=== PATIENT | female | born 1945 | race Caucasian/White ===

== ENCOUNTER 2016-11-15 20:49 | Emergency (ER) | payer MEDICARE, OTHER ==
[2016-11-15] MEDS ORDERED: APRESOLINE 20 MG/ML INJ IV ONE (21:19)
[2016-11-15] MEDS ORDERED: Sodium Chloride 0.9% 1000 ML 1,000 ML ONE (21:30)
[2016-11-15] MEDS ORDERED: Sodium Chloride 0.9% 1000 ML 1,000 ML IV SCH (21:30)
[2016-11-15] MEDS ORDERED: APRESOLINE 20 MG/ML INJ ONE (21:30)
[2016-11-15 21:31] LABS: Mean Cell Volume 94.5 fl (78-100); Mean Corpuscular Hemoglobin 30.9 pg (26-32); Mean Platelet Volume 10.4 fl (6-9.5); Platelet Count 341 K/mm3 (150-450); Red Blood Count 4.89 M/mm3 (4.1-5.4); Red Cell Distribution Width 14.5 % (11.5-14.0); White Blood Count 12.3 K/mm3 (4.0-10.5)
--- NOTE | 2016-11-15 21:31 | ERPHSYRPT ---
- History of Present Illness Time Seen by Provider: 11/15/16 21:14 Source: patient Exam Limitations: clinical condition Patient Subjective Stated Complaint: states that she has had a sinus infection with headache - taking z-pack et steroids per Dr. Mariee but has noticed an increase in blood pressure - states that she has white spots in her vision that she has had before with a sinus headache Triage Nursing Assessment: ambulatory to treatment area - steady gait - moves all extremities with equal strength. alert/oriented - anxious affect. skin pwd - no rash/injury. resps easy - non-labored Physician History: PATIENT WITH HISTORY OF HYPERTENSION, RECENTLY TREATED FOR SINUSITIS WITH STEROIDS AND ANTIBIOTIC ZITHROMAX, WAS FOUND TO HAVE ELEVATED BLOOD PRESSURE TODAY, HAS SLIGHT HEADACHE. DENIES BLURRED VISION, SLURRED SPEECH, CHEST PAIN OR DIAPHORESIS OR DYSPNEA. Timing/Duration: today Activities at Onset: none Quality: aching Chest Pain Radiation: no radiation Severity of Pain-Max: mild Modifying Factors: Improves With: nothing Nitro Today/Relief: no nitro taken today Aspirin Treatment Today: no aspirin today Associated Symptoms: denies symptoms Prior Chest Pain/Cardiac Workup: no prior chest pain Allergies/Adverse Reactions: codeine Allergy (Verified 11/15/16 21:04) moxifloxacin HCl [From Avelox] Allergy (Verified 11/15/16 21:04) Penicillins Allergy (Verified 11/15/16 21:04) Sulfa (Sulfonamide Antibiotics) Allergy (Verified 11/15/16 21:04) Home Medications: Alprazolam 1 mg [Xanax 1 mg] 1 mg PO HS 09/27/15 [History] Benazepril HCl [Lotensin] 20 mg PO DAILY 09/27/15 [History] Fluticasone/Vilanterol [Breo Ellipta 100-25 Mcg INH] 1 each IH DAILY 11/15/16 [ History] Hx Tetanus, Diphtheria Vaccination/Date Given: Yes Hx Influenza Vaccination/Date Given: No Hx Pneumococcal Vaccination/Date Given: No Immunizations Up to Date: Yes - Review of Systems Constitutional: No Fever, No Chills Eyes: No Symptoms Ears, Nose, & Throat: No Symptoms Respiratory: No Symptoms, No Cough, No Dyspnea Cardiac: No Symptoms, No Chest Pain, No Edema, No Syncope Abdominal/Gastrointestinal: No Symptoms, No Abdominal Pain, No Nausea, No Vomiting, No Diarrhea Genitourinary Symptoms: No Symptoms, No Dysuria Musculoskeletal: No Symptoms, No Back Pain, No Neck Pain Skin: No Symptoms, No Rash Neurological: Headache, No Dizziness, No Focal Weakness, No Sensory Changes Psychological: No Symptoms Endocrine: No Symptoms All Other Systems: Reviewed and Negative - Past Medical History Pertinent Past Medical History: Yes Cardiac History: Hypertension Respiratory History: COPD - Past Surgical History Past Surgical History: Yes Female Surgical History: Hysterectomy - Social History Smoking Status: Former smoker Exposure to second hand smoke: No Drug Use: none Patient Lives Alone: No - Female History Hx Last Menstrual Period: n/a - Nursing Vital Signs Temperature: 98.5 F Temperature Source: Oral Pulse Rate: 68 Respiratory Rate: 20 Pain Intensity: 6 - Physical Exam General Appearance: no apparent distress, alert Eye Exam: PERRL/EOMI, eyes nml inspection Ears, Nose, Throat Exam: normal ENT inspection, moist mucous membranes Neck Exam: normal inspection, non-tender, supple Respiratory Exam: normal breath sounds, lungs clear, No respiratory distress Cardiovascular Exam: regular rate/rhythm, normal heart sounds, No edema Gastrointestinal/Abdomen Exam: soft, No tenderness, No mass Back Exam: normal inspection, No CVA tenderness, No vertebral tenderness Extremity Exam: normal inspection, normal range of motion Neurologic Exam: alert, oriented x 3, cooperative, normal mood/affect, nml cerebellar function, sensation nml, No motor deficits Skin Exam: normal color, warm, dry Lymphatic Exam: No adenopathy SpO2 Interpretation: normal SpO2: 93 Oxygen Delivery: Room Air - Course EKG Interpreted by Me: RATE, Sinus Rhythm, NORMAL AXIS Ordered Tests: Active Orders 24 hr Category Date Time Status Shuttler STAT Care 11/15/16 21:18 Active EKG-ER Only STAT Care 11/15/16 21:18 Active IV Insertion STAT Care 11/15/16 21:36 Active CBC W DIFF Stat Lab 11/15/16 21:25 Completed Manual Differential NC Stat Lab 11/15/16 21:25 Completed Medication Summary Generic Name Dose Route Start Last Admin Trade Name Freq PRN Reason Stop Dose Admin Sodium Chloride 1,000 mls @ 50 mls/hr 11/15/16 21:30 11/15/16 21:42 Sodium Chloride 0.9% 1000 Ml IV 12/15/16 21:29 50 mls/hr .Q20H MATTHEW Administration Discontinued Medications Generic Name Dose Route Start Last Admin Trade Name Stepan PRN Reason Stop Dose Admin Clonidine 0.1 mg 11/15/16 22:11 11/15/16 22:18 Catapres 0.1 Mg PO 11/15/16 22:12 0.1 mg STAT ONE Administration Clonidine Confirm 11/15/16 22:17 Catapres 0.1 Mg Administered 11/15/16 22:18 Dose 0.1 mg .ROUTE .STK-MED ONE Hydralazine HCl 10 mg 11/15/16 21:19 11/15/16 21:42 Apresoline 20 Mg/Ml Inj IV 11/15/16 21:20 10 mg STAT ONE Administration Hydralazine HCl Confirm 11/15/16 21:30 Apresoline 20 Mg/Ml Inj Administered 11/15/16 21:31 Dose 20 mg .ROUTE .STK-MED ONE Lab/Rad Data: Laboratory Result Diagrams 11/15/16 21:25 Laboratory Results 11/15/16 Range/Units 21:25 WBC 12.3 H (4.0-10.5) K/mm3 RBC 4.89 (4.1-5.4) M/mm3 Hgb 15.1 (12.0-16.0) gm/dl Hct 46.2 (35-47) % MCV 94.5 (78-100) fl MCH 30.9 (26-32) pg MCHC 32.7 (32-36) g/dl RDW 14.5 H (11.5-14.0) % Plt Count 341 (150-450) K/mm3 MPV 10.4 H (6-9.5) fl Segmented Neutrophils 71 H (36.0-66.0) % Lymphocytes (Manual) 18 L (24-44) % Monocytes (Manual) 9 (0.0-12.0) % Differential Comment NORMAL Atypical Lymphocytes 2 % Platelet Estimate NORMAL (NORMAL) - Progress Progress: improved Progress Note: 11/15/16 21:23 PATIENT GIVEN IV NORMAL SALINE 50ML/HR, HYDRALAZINE 10MG IV, FOLLOWED BY CATAPRES 0.1MG ORALLY, BP IMPROVED TO BP 138/64 11/15/16 23:13 Counseled pt/family regarding: lab results, diagnosis, need for follow-up - Departure Time of Disposition: 23:15 Departure Disposition: Home Clinical Impression: HYPERTENSION Condition: Stable Critical Care Time: No Additional Instructions: CONSULT YOUR FAMILY PHYSICIAN FOR EVALUATION AND ADJUSTMENT OF YOUR BLOOD PRESSURE MEDICATIONS TOMORROW. RETURN TO EMERGENCY FOR ELEVATION OF YOUR BLOOD PRESSURE.
[2016-11-15] MEDS ORDERED: Catapres 0.1 MG PO ONE (22:11)
[2016-11-15] MEDS ORDERED: Catapres 0.1 MG ONE (22:17)
[2016-11-15 22:20] LABS: ATYPICAL LYMPHS 2 %; Total Cells Counted 100
[2016-11-15 22:22] LABS: Platelet Estimate NORMAL (NORMAL)
[2016-11-15 23:10] VITALS: BP 138/63
[2016-11-15 23:17] VITALS: PULSE 68; O2SAT 93
== END 2016-11-15 23:36 | disposition home or self-care (01) ==
LOC: ED 20:49
DX: I10 Essential (primary) hypertension (principal); Z79.899 Other long term (current) drug therapy; J44.9 Chronic obstructive pulmonary disease, unspecified
CPT/HCPCS: 36000; 36415; 85025; 93005; 93041; 96360; 96361; 96374; 99284; J0360; A9270-GY

== ENCOUNTER 2016-11-16 04:42 | Observation (INO) | payer MEDICARE, OTHER ==
[2016-11-16] MEDS ORDERED: SUBLIMAZE 100 MCG/2 ML IV ONE (04:49)
[2016-11-16] MEDS ORDERED: Zofran 4 MG/2 ML VIAL IV ONE (04:49)
[2016-11-16] MEDS ORDERED: SUBLIMAZE 100 MCG/2 ML ONE (04:58)
[2016-11-16] MEDS ORDERED: Zofran 4 MG/2 ML VIAL ONE (04:58)
--- NOTE | 2016-11-16 04:59 | ERPHSYRPT ---
- History of Present Illness Time Seen by Provider: 11/16/16 04:48 Source: patient Exam Limitations: clinical condition Patient Subjective Stated Complaint: reports that she has an excruciating headache that awoke her from sleep at 0300 - reports that she does now have some nausea Triage Nursing Assessment: ambulatory to treatment area with steady gait - moves all extremities with equal strength. alert/oriented - anxious/grimmacing affect. skin pwd - no rash/injury. resps easy - non-labored Physician History: PATIENT WITH HISTORY OF HYPERTENSION, RETURNS TO THE EMERGENCY ROOM WITH A FRONTAL HEADACHE AND ELEVATED BLOOD PRESSURE. DENIES BLURRED VISION, SLURRED SPEECH, NUMBNESS, TINGLING OR WEAKNESS. EVALUATED IN THE EMERGENCY ROOM LAST NIGHT FOR HIGH BLOOD PRESSURE. RECENTLY TREATED FOR SINUSITIS WITH PREDNISONE AND ANTIBIOTIC ZITHROMAX. Timing/Duration: yesterday Quality: throbbing Head Pain Location: frontal Severity of Pain-Max: moderate Severity of Pain-Current: moderate Recent Head Trauma: no recent headache/trauma Modifying Factors: Improves With: exposure to light Associated Symptoms: sensitive to light Previous symptoms: same symptoms as today Allergies/Adverse Reactions: codeine Allergy (Verified 11/16/16 04:49) moxifloxacin HCl [From Avelox] Allergy (Verified 11/16/16 04:49) Penicillins Allergy (Verified 11/16/16 04:49) Sulfa (Sulfonamide Antibiotics) Allergy (Verified 11/16/16 04:49) Home Medications: Alprazolam 1 mg [Xanax 1 mg] 1 mg PO HS 09/27/15 [History] Benazepril HCl [Lotensin] 20 mg PO DAILY 09/27/15 [History] Fluticasone/Vilanterol [Breo Ellipta 100-25 Mcg INH] 1 each IH DAILY 11/15/16 [ History] Hx Tetanus, Diphtheria Vaccination/Date Given: Yes Hx Influenza Vaccination/Date Given: No Hx Pneumococcal Vaccination/Date Given: No Immunizations Up to Date: Yes - Review of Systems Constitutional: No Fever, No Chills Eyes: No Symptoms Ears, Nose, & Throat: No Symptoms Respiratory: No Symptoms, No Cough, No Dyspnea Cardiac: No Symptoms, No Chest Pain, No Edema, No Syncope Abdominal/Gastrointestinal: No Symptoms, No Abdominal Pain, No Nausea, No Vomiting, No Diarrhea Genitourinary Symptoms: No Symptoms, No Dysuria Musculoskeletal: No Symptoms, No Back Pain, No Neck Pain Skin: No Symptoms, No Rash Neurological: Headache, No Dizziness, No Focal Weakness, No Sensory Changes Psychological: No Symptoms Endocrine: No Symptoms All Other Systems: Reviewed and Negative - Past Medical History Pertinent Past Medical History: Yes Cardiac History: Hypertension Respiratory History: COPD - Past Surgical History Past Surgical History: Yes Female Surgical History: Hysterectomy - Social History Smoking Status: Former smoker Exposure to second hand smoke: No Drug Use: none Patient Lives Alone: No - Female History Hx Last Menstrual Period: n/a - Nursing Vital Signs Nursing Vital Signs: Initial Vital Signs Temperature 98.4 F Temperature Source Oral Pulse Rate 60 Respiratory Rate 12 Blood Pressure [] 168/73 Pain Intensity 4 - Physical Exam General Appearance: mild distress Eye Exam: PERRL/EOMI, other (NO PERCUSSION TENDERNESS OVER SINUSES) Neck Exam: normal inspection, supple, full range of motion, No meningismus Respiratory Exam: normal breath sounds, lungs clear Cardiovascular Exam: regular rate/rhythm, normal heart sounds Extremity Exam: normal inspection, normal range of motion Mental Status Exam: alert, 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 Exam: normal hearing, normal speech Coordination/Gait Exam: normal finger to nose, normal gait Motor/Sensory Exam: no motor deficit, no sensory deficit DTR Exam: bicep (R): 2+, bicep (L): 2+, tricep (R): 2+, tricep (L): 2+, knee (R) : 2+, knee (L): 2+, ankle (R): 2+, ankle (L): 2+ Skin Exam: normal color, warm SpO2 Interpretation: normal SpO2: 96 Oxygen Delivery: Room Air - CT Exams Head CT Interpretation: Tele-radiologist Report (atrophy and chronic white matter ischemic changes, no evidence of acute hemorrhage, mass or stroke) Ordered Tests: Active Orders 24 hr Category Date Time Status Up With Assistance ROUTINE Activity 11/16/16 05:46 Active Admission/Status Order ROUTINE Care 11/16/16 05:46 Ordered Call Admit Doctor for Orders ON ADMISSION Care 11/16/16 05:47 Ordered Logistics Operations Director STAT Care 11/16/16 05:23 Active Code Status Order ROUTINE Care 11/16/16 05:46 Ordered IV Care Q6H Care 11/16/16 05:46 Active IV Insertion STAT Care 11/16/16 04:49 Active Oxygen-ED Only NASAL CANNULA 2 lpm Care 11/16/16 04:49 Active Telemetry ROUTINE Care 11/16/16 05:46 Ordered Vital Signs Q4H Care 11/16/16 05:46 Active Low Sodium Diet 11/16/16 Breakfast Active HEAD WITHOUT CONTRAST [CT] Stat Exams 11/16/16 04:54 Taken BMP Stat Lab 11/16/16 04:50 Received Oxygen NASAL CANNULA 2 lpm RT 11/16/16 05:46 Ordered Pulse Oximetry CONTINUOUS RT 11/16/16 05:48 Ordered Transfer Order Routine Transfer 11/16/16 05:45 Ordered Medication Summary Generic Name Dose Route Start Last Admin Trade Name Freq PRN Reason Stop Dose Admin Sodium Chloride 1,000 mls @ 50 mls/hr 11/16/16 05:00 11/16/16 05:05 Sodium Chloride 0.9% 1000 Ml IV 12/16/16 04:59 50 mls/hr .Q20H MATTHEW Administration Discontinued Medications Generic Name Dose Route Start Last Admin Trade Name Freq PRN Reason Stop Dose Admin Fentanyl Citrate 50 mcg 11/16/16 04:49 11/16/16 05:05 Sublimaze 100 Mcg/2 Ml IV 11/16/16 04:50 50 mcg STAT ONE Administration Fentanyl Citrate Confirm 11/16/16 04:58 Sublimaze 100 Mcg/2 Ml Administered 11/16/16 04:59 Dose 100 mcg .ROUTE .STK-MED ONE Ondansetron HCl 4 mg 11/16/16 04:49 11/16/16 05:05 Zofran 4 Mg/2 Ml Vial IV 11/16/16 04:50 4 mg STAT ONE Administration Ondansetron HCl Confirm 11/16/16 04:58 Zofran 4 Mg/2 Ml Vial Administered 11/16/16 04:59 Dose 4 mg .ROUTE .STK-MED ONE - Progress Progress: improved Progress Note: 11/16/16 05:06 PATIENT GIVEN IV FLUIDS NORMAL SALINE 50ML/HR, ZOFRAN 4MG, FENTANY 50MCG IV Will see patient in: hospital (observation) (DISCUSSED WITH DR BRITO AT 0540 FOR ADMISSION) - Departure Time of Disposition: 05:55 Departure Disposition: Observation Clinical Impression: HYPERTENSION, ACUTE CEPHALGIA Condition: Stable Critical Care Time: No Referrals: COREY BRITO [Primary Care Provider] - Instructions: Headache
[2016-11-16] MEDS ORDERED: Sodium Chloride 0.9% 1000 ML 1,000 ML IV SCH (05:00)
[2016-11-16] MEDS ORDERED: Zofran 4 MG/2 ML VIAL IV PRN (05:46)
[2016-11-16] MEDS ORDERED: DUONEB 0.5-3 MG/3 ml Neb IH PRN (05:46)
[2016-11-16] MEDS ORDERED: TYLENOL 325 MG PO PRN (05:46)
[2016-11-16] MEDS ORDERED: SUBLIMAZE 100 MCG/2 ML IV PRN (05:48)
[2016-11-16] MEDS ORDERED: Advair Hfa 115/21 Common canister IH SCH (07:00)
[2016-11-16] MEDS ORDERED: CAFFEINE PO PRN (08:53)
[2016-11-16] MEDS ORDERED: ASPIRIN PO PRN (08:53)
[2016-11-16] MEDS ORDERED: ACETAMINOPHEN PO PRN (08:53)
[2016-11-16] MEDS ORDERED: [UNRECOGNIZED DRUG - OTHER] PO PRN (08:53)
--- NOTE | 2016-11-16 09:07 | HP ---
CHIEF COMPLAINT: Headache and hypertension. HISTORY OF PRESENT ILLNESS: The patient is a 71 year-old white female who reported that she was not feeling good last evening. She began feeling a "boom, boom, boom" in her head as she described it particularly on the left side. The patient became concerned and checked her blood pressure and found it to be 180/90. She summoned EMS and was brought to the emergency room where she was evaluated and eventually sent back home again. The patient reports after she returned home she developed excruciating headache and represented herself to the emergency room and subsequently admitted for further evaluation and treatment. I note that the patient did have a history of migraine headaches and it has been 20 years since her headaches. She reported at that time they were somewhat different however to the point that she became sick and vomited bile. The patient's recent history is otherwise significant for bronchitis that had been treated with antibiotics and prednisone. The patient reports she took her last prednisone pill yesterday. PAST MEDICAL HISTORY: Otherwise significant for anxiety and hypertension. PAST SURGICAL HISTORY: Significant for hysterectomy MEDICATIONS: She does take Alprazolam 1 mg at night time for sleep mostly. She takes Benazepril 20 mg a day for hypertension, Breo Ellipta for chronic obstructive pulmonary disease. ALLERGIES: PENICILLIN, SULFA, CODEINE. PHYSICAL EXAMINATION: Revealed a moderately obese, white female currently in no obvious distress. Her vital signs showed a temperature of 98.4F oral, pulse 60, respiratory rate 12, blood pressure 168/73 in the emergency room. HEENT: Normocephalic, atraumatic. Pupils equal round reactive to light. Extraocular movements intact. Oropharynx is somewhat dry. NECK: Supple without lymphadenopathy, thyromegaly or JVD. CHEST: Clear to auscultation with good air movement bilaterally. HEART: Regular rate and rhythm without murmurs, rubs or gallops heard. ABDOMEN: Soft, nontender, nondistended without hepatosplenomegaly or masses. EXTREMITIES: Without clubbing, cyanosis or edema. NEUROLOGIC: The patient is alert and oriented x3. No focal deficits were noted. LAB DATA AND TESTS: Revealed CT scan showing atrophy with chronic white matter ischemic changes, no evidence of acute, mass or stroke was seen. The patient's EKG tracing showed sinus rhythm and no acute ST-T wave changes were noted. ASSESSMENT: A patient with accelerated hypertension now with cephalgia possibly due to her history of previous migraine headaches or due to hypertensive episode. The patient has been admitted for observation and is already much better this morning. We will continue to monitor her through the day. If she does well we may potentially send her home later this evening.
--- NOTE | 2016-11-16 09:11 | XRAY ---
Indication: Excruciating headache, nausea, and photophobia. History of hypertension. Multiple contiguous axial images obtained through the head without contrast. Comparison: None Normal appearing brain parenchyma, ventricles, and bony calvarium for patient's age. Mild mucosal thickening of both ethmoid and partially visualized both maxillary sinuses. Mastoid air cells are clear. Impression: No acute intracranial abnormalities. Incidental paranasal sinus disease. Comment: Preliminary interpretation was made by [facility]. No critical discrepancy. CT DI 68.98
[2016-11-16] MEDS ORDERED: MEDICATION INTERVENTION MC PRN (09:22)
[2016-11-16] MEDS ORDERED: BENAZEPRIL HCL 10 MG PO SCH (10:00)
[2016-11-16] MEDS ORDERED: Lotensin 10 MG PO SCH (10:00)
[2016-11-16] MEDS ORDERED: NON-FORMULARY ITEM (Fluticasone/Vilanterol [Breo Ellipta 100-25 Mcg Inh] 1 EACH) IH SCH (10:00)
[2016-11-16 14:58] VITALS: PULSE 69
[2016-11-16 16:24] VITALS: BP 115/53; O2SAT 98
[2016-11-16] MEDS ORDERED: XANAX 1 MG PO SCH (22:00)
[2016-11-16] MEDS ORDERED: xanAX 0.5 MG PO SCH (22:00)
[2016-11-17] MEDS ORDERED: Lotensin 10 MG PO SCH (10:00)
== END 2016-11-16 15:40 | disposition home or self-care (01) ==
LOC: ED 04:42 → MED SURG 05:57
PROVIDERS: ADMIT Family Medicine; ATTEND Family Medicine
DX: I10 Essential (primary) hypertension (principal); R51 Headache; J44.9 Chronic obstructive pulmonary disease, unspecified; F41.9 Anxiety disorder, unspecified; Z79.899 Other long term (current) drug therapy
CPT/HCPCS: 36000; 36415; 70450; 80048; 93041; 93268; 94640; 94760; 96360; 96374; 96375; 99285; G0378; J2405; J3010; A9270-GY

== ENCOUNTER 2018-03-07 05:47 | Day surgery (SDC) | payer MEDICARE, OTHER ==
[2018-03-07] MEDS ORDERED: DIPRIVAN 200 MG/20 ML IV ONE (05:48)
[2018-03-07] MEDS ORDERED: Ketamine HCl 50 MG/ML IV ONE (05:48)
[2018-03-07] MEDS ORDERED: Lactated Ringers 1,000 ML IV SCH ×2 (06:30)
[2018-03-07 09:21] VITALS: O2SAT 94
--- NOTE | 2018-03-07 10:10 | OP ---
SURGERY DATE/TIME: 03/07/2018 0759 PREOPERATIVE DIAGNOSIS: Screening exam. POSTOPERATIVE DIAGNOSIS: Sigmoid diverticulosis otherwise normal colon. PROCEDURE: Colonoscopy. SURGEON: Dr. Mariee. ANESTHESIA: MAC. Medications given by anesthesia department. HISTORY: The patient is a 72 year-old white female presenting now for her first screening colonoscopy. She was appraised of the risks of the procedure including the risk of perforation, phlebitis, untoward reaction to medication, bleeding and missed lesions. The patient verbalized her understanding and desired to have the procedure performed. DESCRIPTION OF PROCEDURE: The patient was given the medications by the anesthesia department. She had continuous pulse oximetry, ECG monitoring, intermittent blood pressure monitoring and tidal CO2 monitoring during the examination. She was placed in the left lateral decubitus position. A digital rectal examination was performed and revealed normal anal sphincter tone and no masses. The flexible Olympus pediatric colonoscope was used to intubate the rectum. A view of the colon was developed sequentially to the cecum. Upon insertion and withdrawal, including a retroflex view in the rectum, no mucosal lesions were encountered other than sigmoid diverticula which was moderate to severe in nature. The scope was removed from the patient who tolerated the procedure well and was sent back to OP recovery in good condition. The prep was noted to be fair.
[2018-03-07 10:20] VITALS: BP 119/59; PULSE 77
== END 2018-03-07 09:55 | disposition home or self-care (01) ==
LOC: SDC 05:47
PROVIDERS: ATTEND Family Medicine
DX: Z12.11 Encounter for screening for malignant neoplasm of colon (principal); K57.90 Diverticulosis of intestine, part unspecified, without perforation or abscess without bleeding
CPT/HCPCS: 94250; G0121; 99100; J2704

== ENCOUNTER 2022-07-22 09:21 | Emergency (ER) | payer MEDICARE ==
[2022-07-22] MEDS ORDERED: Sodium Chloride 0.9% 1000 ML 1,000 ML IV STA (09:45)
[2022-07-22] MEDS ORDERED: Sodium Chloride 0.9% 1000 ML 1,000 ML ONE (10:00)
[2022-07-22 10:01] LABS: Absolute Neutrophil Ct (ANC) 3.07 x10^3/uL (1.4-6.9); Basophil (Absolute #) 0.04 x10^3/uL (0-0.4); Eosinophil % 0.6 % (0.00-5.0); Eosinophil (Absolute #) 0.03 x10^3/uL (0-0.5); Hematocrit 47.3 % (35-47); Hemoglobin 15.6 g/dL (12.0-16.0); Lymphocyte (Absolute #) 0.96 x10^3/uL (1.0-4.6); Lymphocytes % 19.8 % (24.0-44.0); Mean Cell Volume 93.5 fL (78-100); Mean Corpuscular Hemoglobin 30.8 pg (26-32); Mean Platelet Volume 10.5 fL (7.5-11.0); Monocyte (Absolute #) 0.73 x10^3/uL (0.0-1.3); Monocytes % 15.1 % (0.0-12.0); Neutrophil % 63.5 % (36.0-66.0); Platelet Count 205 x10^3/uL (150-450); Red Blood Count 5.06 x10^6/uL (4.1-5.4); Red Cell Distribution Width 14.2 % (11.5-14.0); White Blood Count 4.8 x10^3/uL (4.0-10.5)
[2022-07-22 10:21] LABS: ALBUMIN 4.2 g/dL (3.5-5.0); BILIRUBIN,TOTAL 0.4 mg/dL (0.2-1.3); Calcium 8.1 mg/dL (8.4-10.2); Creatinine 1 1.03 mg/dL (0.52-1.04); EST GLOMERULAR FILTRATION RATE 55.2 ML/MIN; Potassium 3.9 mmol/L (3.5-5.1); Total Protein 7.2 g/dL (6.3-8.2)
--- NOTE | 2022-07-22 10:35 | XRAY ---
Indication: Nausea, vomiting, weakness, and diarrhea. Multiple contiguous axial images obtained through the abdomen and pelvis without contrast. Comparison: None Lung bases demonstrates peripheral fibrosis/scarring. No infiltrate or effusion. Heart not enlarged. Small hiatal hernia. Noncontrasted stomach and bowel loops appear nonobstructed. Scattered sigmoid and lesser degree descending diverticulosis without diverticulitis. Appendectomy, hysterectomy, and cholecystectomy reported. No free fluid/air. Liver demonstrates patchy hypoattenuations, steatosis versus malignancy. Lack of IV contrast precludes further characterization. Left kidney demonstrates 1.7 cm cortical cyst and nonobstructing punctate calculus. Remaining gallbladder, pancreas, spleen, adrenal glands, kidneys, ureters, and bladder are unremarkable for noncontrast exam. Mild scattered aortoiliac calcifications without AAA. Osseous structures intact with minimal/mild degenerative changes throughout the spine, moderate dextrorotoscoliosis centered at L2, and moderate degenerative changes both hips. No ventral or inguinal hernias. Impression: 1. Patchy hepatic hypoattenuations either steatosis versus malignancy. Contrast exam may yield further information. 2. Chronic findings including pulmonary fibrosis/scarring, small hiatal hernia, colonic diverticulosis, left renal cyst, nonobstructing left renal punctate calculus, arteriosclerotic disease, and chronic bony findings.
[2022-07-22 10:43] LABS: INFLUENZA B NEGATIVE (NEGATIVE); RESPIRATORY SYNCTIAL VIRUS NEGATIVE (Negative); SARS-CoV-2 Xpert Express NEGATIVE (NEGATIVE)
[2022-07-22 10:50] LABS: INFLUENZA A POSITIVE (NEGATIVE)
[2022-07-22 11:46] VITALS: BP 105/72; PULSE 96
[2022-07-22 11:48] VITALS: O2SAT 92
--- NOTE | 2022-07-22 11:48 | ERPHSYRPT ---
- History of Present Illness Time Seen by Provider: 07/22/22 09:45 Historian: patient Exam Limitations: no limitations Patient Subjective Stated Complaint: Pt had vomiting beginning 4 days ago and diarrhea began yesterday and the vomiting stopped today but continues to have diarrhea, pt has body fatigue Triage Nursing Assessment: Pt brought to the ER by her grand daughter, hypertensive, denies pain although she can't get comfortable in bed, has had 2 bowel movements today, states that she was up multiple times in the night, denies pain to the abdomen with palpatation, denies having a fever at any time, denies any other issues Physician History: Patient is a 76-year-old white female presents with a complaint of nausea and vomiting for several days which seem to stop yesterday. She did however then start frequent diarrhea stools. She denies any significant pain she has been very fatigued she has had no fever chills or sweats her only previous abdominal surgery was a hysterectomy Timing/Duration: week(s) (1) Activities at Onset: none Modifying Factors: Improves With: vomiting Associated Symptoms: diarrhea, loss of appetite, nausea, vomiting, weakness Allergies/Adverse Reactions: codeine Allergy (Verified 07/22/22 09:46) moxifloxacin HCl [From Avelox] Allergy (Verified 07/22/22 09:46) Penicillins Allergy (Verified 07/22/22 09:46) Sulfa (Sulfonamide Antibiotics) Allergy (Verified 07/22/22 09:46) Home Medications: Fluticasone/Vilanterol [Breo Ellipta 100-25 Mcg INH] 1 each IH UD 11/16/16 [History] Amlodipine Besylate 5 mg [Norvasc 5 mg] 5 mg PO DAILY 07/22/22 [History] Ibandronate Sodium [Boniva] 150 mg PO UD 07/22/22 [History] Lisinopril 5 mg [Zestril 5 MG] 5 mg PO DAILY 07/22/22 [History] Hx Tetanus, Diphtheria Vaccination/Date Given: Yes Hx Influenza Vaccination/Date Given: Yes (2021) Hx Pneumococcal Vaccination/Date Given: Yes Travel Risk - International Travel Have you traveled outside of the country in past 3 weeks: No - Coronavirus Screening Are you exhibiting any of the following symptoms?: Yes Symptoms: Vomiting/Diarrhea Close contact with a COVID-19 positive Pt in past 14-21 Days: No - Vaccine Status Have you recieved a Covid-19 vaccination: Yes Gate Tender: Moderna - Vaccination Dates Date of 2cond Vaccination (if applicable): 2020 - Review of Systems Constitutional: No Fever, No Chills Eyes: No Symptoms Ears, Nose, & Throat: No Symptoms Respiratory: No Cough, No Dyspnea Cardiac: No Chest Pain, No Edema, No Syncope Abdominal/Gastrointestinal: Nausea, Vomiting, Diarrhea, No Abdominal Pain Genitourinary Symptoms: No Dysuria Musculoskeletal: No Back Pain, No Neck Pain Skin: No Rash Neurological: No Dizziness, No Focal Weakness, No Sensory Changes Psychological: No Symptoms Endocrine: No Symptoms All Other Systems: Reviewed and Negative - Past Medical History Pertinent Past Medical History: Yes Neurological History: No Pertinent History ENT History: No Pertinent History Cardiac History: Hypertension Respiratory History: COPD Endocrine Medical History: No Pertinent History Musculoskeletal History: No Pertinent History GI Medical History: No Pertinent History History: No Pertinent History Psycho-Social History: No Pertinent History Female Reproductive Disorders: No Pertinent History - Past Surgical History Past Surgical History: Yes Neuro Surgical History: No Pertinent History Cardiac: No Pertinent History Respiratory: No Pertinent History Gastrointestinal: No Pertinent History Genitourinary: No Pertinent History Musculoskeletal: Other Female Surgical History: Hysterectomy Other Surgical History: knee scope - Social History Smoking Status: Former smoker Exposure to second hand smoke: No Drug Use: none Patient Lives Alone: Yes - Nursing Vital Signs Nursing Vital Signs: Initial Vital Signs Temperature 97.7 F 07/22/22 09:31 Pulse Rate 74 07/22/22 09:31 Blood Pressure 144/84 07/22/22 09:31 O2 Sat by Pulse Oximetry 92 L 07/22/22 09:31 Pain Scale Pain Intensity 0 - Physical Exam General Appearance: mild distress, alert Eye Exam: PERRL/EOMI, eyes nml inspection Ears, Nose, Throat Exam: normal ENT inspection, pharynx normal, moist mucous membranes Neck Exam: normal inspection, non-tender, supple, full range of motion Respiratory Exam: normal breath sounds, lungs clear, No respiratory distress Cardiovascular Exam: regular rate/rhythm, normal heart sounds Gastrointestinal/Abdomen Exam: soft, No tenderness, No mass Back Exam: normal inspection, normal range of motion, No CVA tenderness, No vertebral tenderness Extremity Exam: normal inspection, normal range of motion, pelvis stable Neurologic Exam: alert, oriented x 3, cooperative, normal mood/affect, nml cerebellar function, sensation nml, No motor deficits Skin Exam: normal color, warm, dry SpO2: 92 - Course Nursing assessment & vital signs reviewed: Yes - CT Exams Abdomen/Pelvis CT Interpretation: Other (Findings discussed with patient.Hypoattenuation areas in the liver which could be steatosis or perhaps malignancy recommended CT contrast.) Ordered Tests: Active Orders 24 hr Category Date Time Status IV Insertion STAT Care 07/22/22 09:45 Active ABDOMEN AND PELVIS W/0 CONTRAS [CT] Stat Exams 07/22/22 09:46 Completed AMYLASE Stat Lab 07/22/22 09:56 Completed CBC W DIFF Stat Lab 07/22/22 09:56 Completed CMP Stat Lab 07/22/22 09:56 Completed FECAL OCCULT BLOOD - SCREENING Stat Lab 07/22/22 10:39 Ordered LIPASE Stat Lab 07/22/22 09:56 Completed Lactic Acid Stat Lab 07/22/22 10:09 Completed UA W/RFX CULTURE Stat Lab 07/22/22 Ordered Medication Summary Discontinued Medications Generic Name Dose Route Start Last Admin Trade Name Daniq PRN Reason Stop Dose Admin Sodium Chloride 1,000 mls @ 999 mls/hr 07/22/22 09:45 07/22/22 11:09 Sodium Chloride 0.9% 1000 Ml IV 07/22/22 10:45 Infused .Q1H1M STA Infusion Sodium Chloride Confirm 07/22/22 10:00 Sodium Chloride 0.9% 1000 Ml Administered 07/22/22 10:01 Dose 1,000 mls @ ud .ROUTE .K-MED ONE Lab/Rad Data: Laboratory Result Diagrams 07/22/22 09:56 07/22/22 09:56 Laboratory Results 07/22/22 07/22/22 07/22/22 Range/Units 10:09 09:56 09:56 WBC 4.8 (4.0-10.5) x10^3/uL RBC 5.06 (4.1-5.4) x10^6/uL Hgb 15.6 (12.0-16.0) g/dL Hct 47.3 H (35-47) % MCV 93.5 (78-100) fL MCH 30.8 (26-32) pg MCHC 33.0 (32-36) g/dL RDW 14.2 H (11.5-14.0) % Plt Count 205 (150-450) x10^3/uL MPV 10.5 (7.5-11.0) fL Gran % 63.5 (36.0-66.0) % Immature Gran % (Auto) 0.2 (0.00-0.4) % Nucleat RBC Rel Count 0.0 (0.00-0.1) % Eos # (Auto) 0.03 (0-0.5) x10^3/uL Immature Gran # (Auto) 0.01 (0.00-0.03) x10^3u/L Absolute Lymphs (auto) 0.96 L (1.0-4.6) x10^3/uL Absolute Monos (auto) 0.73 (0.0-1.3) x10^3/uL Absolute Nucleated RBC 0.00 (0.00-0.01) x10^3u/L Lymphocytes % 19.8 L (24.0-44.0) % Monocytes % 15.1 H (0.0-12.0) % Eosinophils % 0.6 (0.00-5.0) % Basophils % 0.8 (0.0-0.4) % Absolute Granulocytes 3.07 (1.4-6.9) x10^3/uL Basophils # 0.04 (0-0.4) x10^3/uL Sodium 130 L (137-145) mmol/L Potassium 3.9 (3.5-5.1) mmol/L Chloride 98 (98-107) mmol/L Carbon Dioxide 18 L (22-30) mmol/L Anion Gap 17.0 H (5-15) MEQ/L BUN 33 H (7-17) mg/dL Creatinine 1.03 (0.52-1.04) mg/dL Estimated GFR 55.2 ML/MIN Glucose 98 (74-106) mg/dL Lactic Acid 1.0 (0.4-2.0) Calcium 8.1 L (8.4-10.2) mg/dL Total Bilirubin 0.40 (0.2-1.3) mg/dL AST 43 H (14-36) U/L ALT 29 (0-35) U/L Alkaline Phosphatase 58 (38-126) U/L Serum Total Protein 7.2 (6.3-8.2) g/dL Albumin 4.2 (3.5-5.0) g/dL Amylase 81 (30-110) U/L Lipase 200 (23-300) U/L Influenza Type A Ag (NEGATIVE) Influenza Type B Ag (NEGATIVE) RSV (PCR) (Negative) SARS-CoV-2 (PCR) (NEGATIVE) 07/22/22 Range/Units 09:54 WBC (4.0-10.5) x10^3/uL RBC (4.1-5.4) x10^6/uL Hgb (12.0-16.0) g/dL Hct (35-47) % MCV (78-100) fL MCH (26-32) pg MCHC (32-36) g/dL RDW (11.5-14.0) % Plt Count (150-450) x10^3/uL MPV (7.5-11.0) fL Gran % (36.0-66.0) % Immature Gran % (Auto) (0.00-0.4) % Nucleat RBC Rel Count (0.00-0.1) % Eos # (Auto) (0-0.5) x10^3/uL Immature Gran # (Auto) (0.00-0.03) x10^3u/L Absolute Lymphs (auto) (1.0-4.6) x10^3/uL Absolute Monos (auto) (0.0-1.3) x10^3/uL Absolute Nucleated RBC (0.00-0.01) x10^3u/L Lymphocytes % (24.0-44.0) % Monocytes % (0.0-12.0) % Eosinophils % (0.00-5.0) % Basophils % (0.0-0.4) % Absolute Granulocytes (1.4-6.9) x10^3/uL Basophils # (0-0.4) x10^3/uL Sodium (137-145) mmol/L Potassium (3.5-5.1) mmol/L Chloride (98-107) mmol/L Carbon Dioxide (22-30) mmol/L Anion Gap (5-15) MEQ/L BUN (7-17) mg/dL Creatinine (0.52-1.04) mg/dL Estimated GFR ML/MIN Glucose (74-106) mg/dL Lactic Acid (0.4-2.0) Calcium (8.4-10.2) mg/dL Total Bilirubin (0.2-1.3) mg/dL AST (14-36) U/L ALT (0-35) U/L Alkaline Phosphatase (38-126) U/L Serum Total Protein (6.3-8.2) g/dL Albumin (3.5-5.0) g/dL Amylase (30-110) U/L Lipase (23-300) U/L Influenza Type A Ag POSITIVE (NEGATIVE) Influenza Type B Ag NEGATIVE (NEGATIVE) RSV (PCR) NEGATIVE (Negative) SARS-CoV-2 (PCR) NEGATIVE (NEGATIVE) - Progress Progress: improved - Departure Departure Disposition: Home Clinical Impression: Influenza A Condition: Stable Critical Care Time: No Referrals: COREY BRITO [Primary Care Provider] - Follow up/PCP as directed Instructions: Flu, Adult (DC) Prescriptions: Ondansetron ODT 4 MG [Zofran Odt 4 mg] 4 mg PO Q6H PRN PRN #10 tablet PRN Reason: Vomiting Loperamide HCl [Imodium A-D] 1 mg PO Q6H #20 mg pe Oseltamivir 75 mg [Tamiflu 75MG Capsule] 75 mg PO BID 5 Days #10 cap
== END 2022-07-22 12:06 | disposition home or self-care (01) ==
LOC: ED 09:21
DX: J10.1 Influenza due to other identified influenza virus with other respiratory manifestations (principal); R11.2 Nausea with vomiting, unspecified; R19.7 Diarrhea, unspecified; R53.83 Other fatigue; I10 Essential (primary) hypertension; J44.9 Chronic obstructive pulmonary disease, unspecified; Z79.899 Other long term (current) drug therapy; Z20.828 Contact with and (suspected) exposure to other viral communicable diseases
CPT/HCPCS: 0241U; 36000; 36415; 74176; 80053; 82150; 83605; 83690; 85025; 96360; 99284

== ENCOUNTER 2022-11-27 22:26 | Emergency (ER) | payer MEDICARE ==
--- NOTE | 2022-11-27 23:07 | ERPHSYRPT ---
- History of Present Illness Time Seen by Provider: 11/27/22 23:03 Source: patient, family Exam Limitations: no limitations Patient Subjective Stated Complaint: vomiting and diarrhea since noon today Triage Nursing Assessment: pt brought into ER via wheelchair, son at bedside. Pt c/o nausea and vomiting off and on since noon today. Abd soft, obese with active bs x4 quad, nontender. Lungs clear, heart tones reg. Physician History: pt has no abd pain , no fever, no urinary symtpoms. Just has diarrhea and vomitinh starting today. Abd exam is normal without tenderness or periotoneal signs or masses. Discussed lab testing and CT with pt and family and risk and benefits as well as considering ab and they wish to decline all of these and prefer to just try some zofran and oral hydration in ER and mild IV hydration as well. they have the capacity to make this choice. Timing/Duration: today Severity: mild Modifying Factors: Improves With: nothing Associated Symptoms: nausea, vomiting, No abdominal pain Allergies/Adverse Reactions: oseltamivir [From Tamiflu] Allergy (Severe, Verified 11/27/22 22:59) Swelling of Face codeine Allergy (Verified 07/22/22 09:46) moxifloxacin HCl [From Avelox] Allergy (Verified 07/22/22 09:46) Penicillins Allergy (Verified 07/22/22 09:46) Sulfa (Sulfonamide Antibiotics) Allergy (Verified 07/22/22 09:46) Home Medications: Fluticasone/Vilanterol [Breo Ellipta 100-25 Mcg INH] 1 each IH UD 11/16/16 [History] Amlodipine Besylate 5 mg [Norvasc 5 mg] 5 mg PO DAILY 07/22/22 [History] Ibandronate Sodium [Boniva] 150 mg PO UD 07/22/22 [History] Lisinopril 5 mg [Zestril 5 MG] 5 mg PO DAILY 07/22/22 [History] Hx Tetanus, Diphtheria Vaccination/Date Given: Yes Hx Influenza Vaccination/Date Given: Yes Hx Pneumococcal Vaccination/Date Given: Yes Immunizations Up to Date: Yes Travel Risk - International Travel Have you traveled outside of the country in past 3 weeks: No - Coronavirus Screening Are you exhibiting any of the following symptoms?: Yes Symptoms: Vomiting/Diarrhea Close contact with a COVID-19 positive Pt in past 14-21 Days: No - Vaccine Status Have you recieved a Covid-19 vaccination: Yes 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 - Review of Systems Constitutional: No Fever, No Chills Eyes: No Symptoms Ears, Nose, & Throat: No Symptoms Respiratory: No Cough, No Dyspnea Cardiac: No Chest Pain, No Edema, No Syncope Abdominal/Gastrointestinal: Nausea, Vomiting, Diarrhea, No Abdominal Pain Genitourinary Symptoms: No Dysuria Musculoskeletal: No Back Pain, No Neck Pain Skin: No Symptoms, No Rash Neurological: No Dizziness, No Focal Weakness, No Sensory Changes Psychological: No Symptoms Endocrine: No Symptoms Hematologic/Lymphatic: No Symptoms Immunological/Allergic: No Symptoms All Other Systems: Reviewed and Negative - Past Medical History Pertinent Past Medical History: Yes Neurological History: No Pertinent History ENT History: No Pertinent History Cardiac History: Hypertension Respiratory History: COPD Endocrine Medical History: No Pertinent History Musculoskeletal History: No Pertinent History GI Medical History: No Pertinent History History: No Pertinent History Psycho-Social History: No Pertinent History Female Reproductive Disorders: No Pertinent History - Past Surgical History Past Surgical History: Yes Neuro Surgical History: No Pertinent History Cardiac: No Pertinent History Respiratory: No Pertinent History Gastrointestinal: No Pertinent History Genitourinary: No Pertinent History Musculoskeletal: Other Female Surgical History: Hysterectomy Other Surgical History: knee scope - Social History Smoking Status: Former smoker Exposure to second hand smoke: No Drug Use: none Patient Lives Alone: Yes - Nursing Vital Signs Nursing Vital Signs: Initial Vital Signs Temperature 98.7 F 11/27/22 22:44 Pulse Rate 112 H 11/27/22 22:44 Respiratory Rate 22 11/27/22 22:44 Blood Pressure 122/76 11/27/22 22:44 Pain Scale Pain Intensity 0 - Physical Exam General Appearance: no apparent distress, alert Eye Exam: PERRL/EOMI, eyes nml inspection Ears, Nose, Throat Exam: normal ENT inspection, TMs normal, pharynx normal, moist mucous membranes Neck Exam: normal inspection, non-tender, supple, full range of motion Respiratory Exam: normal breath sounds, lungs clear, No respiratory distress Cardiovascular Exam: regular rate/rhythm, normal heart sounds, normal peripheral pulses Gastrointestinal/Abdomen Exam: soft, normal bowel sounds, No tenderness, No mass, No guarding Pelvic Exam: deferred Rectal Exam: deferred Back Exam: normal inspection, normal range of motion, No CVA tenderness, No vertebral tenderness Extremity Exam: normal inspection, normal range of motion, pelvis stable Neurologic Exam: alert, oriented x 3, cooperative, normal mood/affect, nml cerebellar function, nml station & gait, sensation nml, No motor deficits Skin Exam: normal color, warm, dry, No rash Lymphatic Exam: No adenopathy SpO2 Interpretation: normal SpO2: 95 O2 Delivery: Room Air - Course Nursing assessment & vital signs reviewed: Yes Ordered Tests: Active Orders 24 hr Category Date Time Status IV Insertion STAT Care 11/27/22 23:08 Active PO Fluid Challenge STAT Care 11/27/22 23:13 Active Medication Summary Discontinued Medications Generic Name Dose Route Start Last Admin Trade Name Daniq PRN Reason Stop Dose Admin Sodium Chloride 1,000 mls @ 999 mls/hr 11/27/22 23:08 11/27/22 23:17 Sodium Chloride 0.9% 1000 Ml IV 11/28/22 00:08 999 mls/hr .Q1H1M STA Administration Sodium Chloride Confirm 11/27/22 23:15 Sodium Chloride 0.9% 1000 Ml Administered 11/27/22 23:16 Dose 1,000 mls @ ud .ROUTE .STK-MED ONE Ondansetron HCl 4 mg 11/27/22 23:08 11/27/22 23:17 Ondansetron Hcl 4 Mg/2 Ml Vial IV 11/27/22 23:09 4 mg STAT ONE Administration Ondansetron HCl Confirm 11/27/22 23:15 Ondansetron Hcl 4 Mg/2 Ml Vial Administered 11/27/22 23:16 Dose 4 mg .ROUTE .STK-MED ONE - Progress Progress: improved, re-examined Progress Note: 11/28/22 00:11 pt has no further vomiting after zofran and diya PO well. repeat exam no abd pain or tenderness or mass on exam . 11/28/22 00:13 discussed with pt and son that we have not determined a cause for the symptoms and a more serious condition could still be developing. They prefer DC and outpt f/u PMD rather than workup in ER or admit gume now that symptoms are resolved. They have the capacity to make this choice. 11/28/22 00:18 hearty rate back down to 80s after fluids. Counseled pt/family regarding: diagnosis, need for follow-up - Departure Departure Disposition: Home Clinical Impression: Vomiting and diarrhea Condition: Good Critical Care Time: No Referrals: COREY BRITO [Primary Care Provider] - Follow up/PCP as directed Instructions: Diarrhea and Travelers' Diarrhea, Adult (DC), Nausea and Vomiting, Adult (DC) Additional Instructions: although you seem to have a mild stomach condition such as a stomach virus or food bourne illness which should be self limited, there still could be something more serious developing and not yet detected on exam. therefore if not continuing to improve or furhter comiting or especially if any pain - return or see your dr right away. Followup with your Dr, this week also. Prescriptions: Ondansetron ODT 4 MG [Zofran Odt 4 mg] 4 mg PO Q6H PRN PRN #10 tablet PRN Reason: Nausea
[2022-11-27 23:08] VITALS: O2SAT 95
[2022-11-27] MEDS ORDERED: Zofran 4 MG/2 ML VIAL IV ONE (23:08)
[2022-11-27] MEDS ORDERED: Sodium Chloride 0.9% 1000 ML 1,000 ML IV STA (23:08)
[2022-11-27] MEDS ORDERED: Zofran 4 MG/2 ML VIAL ONE (23:15)
[2022-11-27] MEDS ORDERED: Sodium Chloride 0.9% 1000 ML 1,000 ML ONE (23:15)
[2022-11-28 00:17] VITALS: BP 160/92; PULSE 114
== END 2022-11-28 00:23 | disposition home or self-care (01) ==
LOC: ED 22:26
DX: R19.7 Diarrhea, unspecified (principal); R11.2 Nausea with vomiting, unspecified; I10 Essential (primary) hypertension; Z79.899 Other long term (current) drug therapy
CPT/HCPCS: 36000; 96374; 99283; J2405

== ENCOUNTER 2023-03-16 19:27 | Observation (INO) | payer MEDICARE ==
[2023-03-16] MEDS ORDERED: Zofran 4 MG/2 ML VIAL IV ONE (20:14)
[2023-03-16] MEDS ORDERED: Sodium Chloride 0.9% 1000 ML 1,000 ML IV SCH (20:15)
[2023-03-16] MEDS ORDERED: Zofran 4 MG/2 ML VIAL ONE (20:16)
[2023-03-16] MEDS ORDERED: Sodium Chloride 0.9% 1000 ML 1,000 ML ONE (20:16)
[2023-03-16 20:17] LABS: Absolute Neutrophil Ct (ANC) 16.02 x10^3/uL (1.4-6.9); BASOPHIL % 0.3 % (0.0-0.4); Basophil (Absolute #) 0.06 x10^3/uL (0-0.4); Eosinophil (Absolute #) 0 x10^3/uL (0-0.5); Hematocrit 50.4 % (35-47); Hemoglobin 16.6 g/dL (12.0-16.0); IMMATURE GRAN # 0.08 x10^3u/L (0.00-0.03); IMMATURE GRAN % 0.4 % (0.00-0.4); Lymphocyte (Absolute #) 0.96 x10^3/uL (1.0-4.6); Lymphocytes % 5.3 % (24.0-44.0); Mean Cell Volume 95.1 fL (78-100); Mean Corpuscular Hemoglobin 31.3 pg (26-32); Mean Corpuscular Hgb Concent. 32.9 g/dL (32-36); Mean Platelet Volume 11.2 fL (7.5-11.0); Monocyte (Absolute #) 1.15 x10^3/uL (0.0-1.3); Monocytes % 6.3 % (0.0-12.0); Neutrophil % 87.7 % (36.0-66.0); Platelet Count 251 x10^3/uL (150-450); White Blood Count 18.3 x10^3/uL (4.0-10.5)
[2023-03-16 20:22] LABS: ALBUMIN 4.4 g/dL (3.5-5.0); ALKALINE PHOSPHATASE 64 U/L (38-126); ANION GAP 14.1 MEQ/L (5-15); BLOOD UREA NITROGEN 15 mg/dL (7-17); CHLORIDE 96 mmol/L (98-107); Calcium 9.6 mg/dL (8.4-10.2); Carbon Dioxide 27 mmol/L (22-30); Creatinine 1 0.74 mg/dL (0.52-1.04); EST GLOMERULAR FILTRATION RATE > 60.0 ML/MIN; Glucose 155 mg/dL (74-106); LIPASE 68 U/L (23-300); Potassium 4.5 mmol/L (3.5-5.1); SGOT/AST 29 U/L (14-36); SGPT/ALT 20 U/L (0-35); SODIUM 132 mmol/L (137-145); Total Protein 7.2 g/dL (6.3-8.2)
--- NOTE | 2023-03-16 21:06 | ERPHSYRPT ---
- History of Present Illness Time Seen by Provider: 03/16/23 19:45 Source: patient Exam Limitations: no limitations Patient Subjective Stated Complaint: pt states I don't feel good and have diarrhea Triage Nursing Assessment: pt ambulated into the er; pt is axo x4; pt is moaning and yelling out; pt denies pain; states being cold and having chills; c/o vomiting and diarrhea; abd round, soft, nontender; active bowel sounds in all quads; skin PDW; mucus membranes pink and moist; tachycardic; no respiratory distress present Physician History: Patient is a 77-year-old female presents to our ED for evaluation and treatment of nausea vomiting diarrhea and generalized weakness. Symptoms started 1 day ago. Patient also experiencing chills. Patient denies abdominal pain. Diarrhea is nonbloody nonbilious. No obvious sick contacts. Patient denies fever. No trauma. Symptoms have been constant. Symptoms are moderate in intensity. No specific worsening improving factors. No associated chest pain or shortness of breath. Patient son is at bedside. They voiced no other complaints or concerns at this time. Portions of this note were created with voice recognition technology. There may be grammatical, spelling, punctuation or sound alike errors Timing/Duration: yesterday Severity: moderate Modifying Factors: Improves With: nothing Associated Symptoms: weakness (Generalized weakness) Allergies/Adverse Reactions: oseltamivir [From Tamiflu] Allergy (Severe, Verified 03/16/23 19:34) Swelling of Face codeine Allergy (Verified 03/16/23 19:34) moxifloxacin HCl [From Avelox] Allergy (Verified 03/16/23 19:34) Penicillins Allergy (Verified 03/16/23 19:34) Sulfa (Sulfonamide Antibiotics) Allergy (Verified 03/16/23 19:34) Home Medications: Fluticasone/Vilanterol [Breo Ellipta 100-25 Mcg INH] 1 each IH UD 11/16/16 [History] Amlodipine Besylate 5 mg [Norvasc 5 mg] 5 mg PO DAILY 07/22/22 [History] Ibandronate Sodium [Boniva] 150 mg PO UD 07/22/22 [History] Lisinopril 5 mg [Zestril 5 MG] 5 mg PO DAILY 07/22/22 [History] Hx Tetanus, Diphtheria Vaccination/Date Given: Yes Hx Influenza Vaccination/Date Given: Yes Hx Pneumococcal Vaccination/Date Given: Yes Travel Risk - International Travel Have you traveled outside of the country in past 3 weeks: No - Coronavirus Screening Are you exhibiting any of the following symptoms?: Yes Symptoms: Vomiting/Diarrhea Close contact with a COVID-19 positive Pt in past 14-21 Days: No - Vaccine Status Have you recieved a Covid-19 vaccination: Yes Pierogi Maker: Moderna - Vaccination Dates Date of 2cond Vaccination (if applicable): 2020 - Review of Systems Constitutional: No Symptoms, No Fever, No Chills Eyes: No Symptoms Ears, Nose, & Throat: No Symptoms Respiratory: No Symptoms, No Cough, No Dyspnea Cardiac: No Symptoms, No Chest Pain, No Edema, No Syncope Abdominal/Gastrointestinal: No Symptoms, No Abdominal Pain, No Nausea, No Vomiting, No Diarrhea Genitourinary Symptoms: No Symptoms, No Dysuria Musculoskeletal: No Symptoms, No Back Pain, No Neck Pain Skin: No Symptoms, No Rash Neurological: No Symptoms, No Dizziness, No Focal Weakness, No Sensory Changes Psychological: No Symptoms Endocrine: No Symptoms Hematologic/Lymphatic: No Symptoms Immunological/Allergic: No Symptoms All Other Systems: Reviewed and Negative - Past Medical History Pertinent Past Medical History: Yes Neurological History: No Pertinent History ENT History: No Pertinent History Cardiac History: Hypertension Respiratory History: COPD Endocrine Medical History: No Pertinent History Musculoskeletal History: No Pertinent History GI Medical History: No Pertinent History History: No Pertinent History Psycho-Social History: No Pertinent History Female Reproductive Disorders: No Pertinent History - Past Surgical History Past Surgical History: Yes Neuro Surgical History: No Pertinent History Cardiac: No Pertinent History Respiratory: No Pertinent History Gastrointestinal: No Pertinent History Genitourinary: No Pertinent History Musculoskeletal: Other Female Surgical History: Hysterectomy Other Surgical History: knee scope - Social History Smoking Status: Former smoker Exposure to second hand smoke: No Drug Use: none Patient Lives Alone: Yes - Nursing Vital Signs Nursing Vital Signs: Initial Vital Signs Blood Pressure 147/93 03/16/23 19:33 O2 Sat by Pulse Oximetry 93 L 03/16/23 19:33 Pain Scale Pain Intensity 0 - Physical Exam General Appearance: no apparent distress, alert, other (Dry oral mucous membranes) Eye Exam: PERRL/EOMI, eyes nml inspection Ears, Nose, Throat Exam: normal ENT inspection, TMs normal, pharynx normal, moist mucous membranes Neck Exam: normal inspection, non-tender, supple, full range of motion Respiratory Exam: normal breath sounds, lungs clear, airway intact, No respiratory distress Cardiovascular Exam: regular rate/rhythm, normal heart sounds, normal peripheral pulses Gastrointestinal/Abdomen Exam: soft, normal bowel sounds, No tenderness, No mass Back Exam: normal inspection, normal range of motion, No CVA tenderness, No vertebral tenderness Extremity Exam: normal inspection, normal range of motion, pelvis stable Neurologic Exam: alert, oriented x 3, cooperative, normal mood/affect, sensation nml, No motor deficits Skin Exam: normal color, warm, dry, No rash Lymphatic Exam: No adenopathy SpO2 Interpretation: normal SpO2: 97 O2 Delivery: Room Air - Course Nursing assessment & vital signs reviewed: Yes EKG Interpreted by Me: RATE ([id number]), Sinus Tach, NORMAL AXIS, NORMAL INTERVALS - Radiology Exams Chest X-ray Interpretation: Teleradiologist Report (No acute pulmonary disease) - CT Exams Abdomen/Pelvis CT Interpretation: Tele-radiologist Report (Inflammation versus infection of the terminal ileum, cecum proximal ascending colon, diverticulosis of the sigmoid descending colon, left renal cyst, atherosclerotic plaque chronic bony changes) Chest CT Interpretation: Tele-radiologist Report (Lung emphysema, calcified lung granuloma, atelectasis) Ordered Tests: Active Orders 24 hr Category Date Time Status Biomedical Engineering Professor STAT Care 03/16/23 22:30 Active EKG-ER Only STAT Care 03/16/23 22:25 Active IV Insertion STAT Care 03/16/23 20:09 Active Pulse Oximetry (ED) STAT Care 03/16/23 22:30 Active ABDOMEN AND PELVIS W CONTRAST [CT] Stat Exams 03/16/23 23:41 Completed CHEST 1 VIEW (PORTABLE) Stat Exams 03/16/23 22:19 Completed CHEST WITH CONTRAST [CT] Stat Exams 03/16/23 23:37 Completed BLOOD CULTURE Stat Lab 03/16/23 23:15 Received BNPII [NT PRO BNPII] Stat Lab 03/16/23 20:00 Completed CBC W DIFF Stat Lab 03/16/23 20:00 Completed CMP Stat Lab 03/16/23 20:00 Completed D-DIMER QUANTITATIVE Stat Lab 03/16/23 23:15 Completed LIPASE Stat Lab 03/16/23 20:00 Completed Lactic Acid Stat Lab 03/16/23 22:40 Completed TROPONIN Q4H Lab 03/16/23 20:00 Completed TROPONIN Q4H Lab 03/17/23 00:00 Completed TROPONIN Q4H Lab 03/17/23 04:15 Ordered TSH [TSH, 3RD Generation] Stat Lab 03/17/23 00:45 Completed UA W/RFX UR CULTURE Stat Lab 03/17/23 01:39 Received Respiratory Therapy Assessment DAILY RT 03/16/23 22:54 Active Medication Summary Generic Name Dose Route Start Last Admin Trade Name Freq PRN Reason Stop Dose Admin Sodium Chloride 1,000 mls @ 100 mls/hr 03/16/23 20:15 03/16/23 20:19 Sodium Chloride 0.9% 1000 Ml IV 04/15/23 20:14 100 mls/hr .Q10H MATTHEW Administration Discontinued Medications Generic Name Dose Route Start Last Admin Trade Name Freq PRN Reason Stop Dose Admin Albuterol Sulfate 2.5 mg 03/16/23 22:23 03/16/23 22:36 Albuterol Sulfate 2.5 Mg/3 Ml Neb IH 03/16/23 22:24 2.5 mg STAT ONE Administration Albuterol Sulfate Confirm 03/16/23 22:31 Albuterol Sulfate 2.5 Mg/3 Ml Neb Administered 03/16/23 22:32 Dose 2.5 mg IH .STK-MED ONE Methylprednisolone Sodium 0 mg 03/17/23 01:45 03/17/23 01:52 Succinate 125 mg/ Sterile IV 03/17/23 01:46 125 mg Water 2 ml STAT ONE Administration Methylprednisolone Sodium Succinate Confirm 03/17/23 01:52 Methylprednis Sod Succ 125 Mg/2 Ml Vial Administered 03/17/23 01:53 Dose 125 mg .ROUTE .STK-MED ONE Ondansetron HCl 4 mg 03/16/23 20:14 03/16/23 20:20 Ondansetron Hcl 4 Mg/2 Ml Vial IV 03/16/23 20:15 4 mg STAT ONE Administration Ondansetron HCl Confirm 03/16/23 20:16 Ondansetron Hcl 4 Mg/2 Ml Vial Administered 03/16/23 20:17 Dose 4 mg .ROUTE .STK-MED ONE Sterile Water Confirm 03/17/23 01:52 Water For Injection,Sterile 10 Ml Vial Administered 03/17/23 01:53 Dose 10 ml IJ .STK-MED ONE Lab/Rad Data: Laboratory Result Diagrams 03/16/23 20:00 03/16/23 20:00 Laboratory Results 03/17/23 03/17/23 03/16/23 Range/Units 00:45 00:00 23:15 WBC (4.0-10.5) x10^3/uL RBC (4.1-5.4) x10^6/uL Hgb (12.0-16.0) g/dL Hct (35-47) % MCV (78-100) fL MCH (26-32) pg MCHC (32-36) g/dL RDW (11.5-14.0) % Plt Count (150-450) x10^3/uL MPV (7.5-11.0) fL Gran % (36.0-66.0) % Immature Gran % (Auto) (0.00-0.4) % Nucleat RBC Rel Count (0.00-0.1) % Eos # (Auto) (0-0.5) x10^3/uL Immature Gran # (Auto) (0.00-0.03) x10^3u/L Absolute Lymphs (auto) (1.0-4.6) x10^3/uL Absolute Monos (auto) (0.0-1.3) x10^3/uL Absolute Nucleated RBC (0.00-0.01) x10^3u/L Lymphocytes % (24.0-44.0) % Monocytes % (0.0-12.0) % Eosinophils % (0.00-5.0) % Basophils % (0.0-0.4) % Absolute Granulocytes (1.4-6.9) x10^3/uL Basophils # (0-0.4) x10^3/uL D-Dimer 1.59 H* (0.0-0.50) mg/L Sodium (137-145) mmol/L Potassium (3.5-5.1) mmol/L Chloride (98-107) mmol/L Carbon Dioxide (22-30) mmol/L Anion Gap (5-15) MEQ/L BUN (7-17) mg/dL Creatinine (0.52-1.04) mg/dL Estimated GFR ML/MIN Glucose (74-106) mg/dL Lactic Acid (0.4-2.0) Calcium (8.4-10.2) mg/dL Total Bilirubin (0.2-1.3) mg/dL AST (14-36) U/L ALT (0-35) U/L Alkaline Phosphatase (38-126) U/L Troponin I < 0.012 (0.000-0.034) ng/mL NT-Pro-B Natriuret Pep (<300) pg/mL Serum Total Protein (6.3-8.2) g/dL Albumin (3.5-5.0) g/dL Lipase (23-300) U/L TSH 3rd Generation 1.440 (0.47-4.68) mIU/L Influenza Type A Ag (NEGATIVE) Influenza Type B Ag (NEGATIVE) RSV (PCR) (NEGATIVE) SARS-CoV-2 (PCR) (NEGATIVE) 03/16/23 03/16/23 03/16/23 Range/Units 22:40 20:25 20:00 WBC (4.0-10.5) x10^3/uL RBC (4.1-5.4) x10^6/uL Hgb (12.0-16.0) g/dL Hct (35-47) % MCV (78-100) fL MCH (26-32) pg MCHC (32-36) g/dL RDW (11.5-14.0) % Plt Count (150-450) x10^3/uL MPV (7.5-11.0) fL Gran % (36.0-66.0) % Immature Gran % (Auto) (0.00-0.4) % Nucleat RBC Rel Count (0.00-0.1) % Eos # (Auto) (0-0.5) x10^3/uL Immature Gran # (Auto) (0.00-0.03) x10^3u/L Absolute Lymphs (auto) (1.0-4.6) x10^3/uL Absolute Monos (auto) (0.0-1.3) x10^3/uL Absolute Nucleated RBC (0.00-0.01) x10^3u/L Lymphocytes % (24.0-44.0) % Monocytes % (0.0-12.0) % Eosinophils % (0.00-5.0) % Basophils % (0.0-0.4) % Absolute Granulocytes (1.4-6.9) x10^3/uL Basophils # (0-0.4) x10^3/uL D-Dimer (0.0-0.50) mg/L Sodium (137-145) mmol/L Potassium (3.5-5.1) mmol/L Chloride (98-107) mmol/L Carbon Dioxide (22-30) mmol/L Anion Gap (5-15) MEQ/L BUN (7-17) mg/dL Creatinine (0.52-1.04) mg/dL Estimated GFR ML/MIN Glucose (74-106) mg/dL Lactic Acid 1.6 (0.4-2.0) Calcium (8.4-10.2) mg/dL Total Bilirubin (0.2-1.3) mg/dL AST (14-36) U/L ALT (0-35) U/L Alkaline Phosphatase (38-126) U/L Troponin I (0.000-0.034) ng/mL NT-Pro-B Natriuret Pep 541 (<300) pg/mL Serum Total Protein (6.3-8.2) g/dL Albumin (3.5-5.0) g/dL Lipase (23-300) U/L TSH 3rd Generation (0.47-4.68) mIU/L Influenza Type A Ag NEGATIVE (NEGATIVE) Influenza Type B Ag NEGATIVE (NEGATIVE) RSV (PCR) NEGATIVE (NEGATIVE) SARS-CoV-2 (PCR) NEGATIVE (NEGATIVE) 03/16/23 03/16/23 03/16/23 Range/Units 20:00 20:00 20:00 WBC 18.3 H (4.0-10.5) x10^3/uL RBC 5.30 (4.1-5.4) x10^6/uL Hgb 16.6 H (12.0-16.0) g/dL Hct 50.4 H (35-47) % MCV 95.1 (78-100) fL MCH 31.3 (26-32) pg MCHC 32.9 (32-36) g/dL RDW 14.0 (11.5-14.0) % Plt Count 251 (150-450) x10^3/uL MPV 11.2 H (7.5-11.0) fL Gran % 87.7 H (36.0-66.0) % Immature Gran % (Auto) 0.4 (0.00-0.4) % Nucleat RBC Rel Count 0.0 (0.00-0.1) % Eos # (Auto) 0 (0-0.5) x10^3/uL Immature Gran # (Auto) 0.08 H (0.00-0.03) x10^3u/L Absolute Lymphs (auto) 0.96 L (1.0-4.6) x10^3/uL Absolute Monos (auto) 1.15 (0.0-1.3) x10^3/uL Absolute Nucleated RBC 0.00 (0.00-0.01) x10^3u/L Lymphocytes % 5.3 L (24.0-44.0) % Monocytes % 6.3 (0.0-12.0) % Eosinophils % 0.0 (0.00-5.0) % Basophils % 0.3 (0.0-0.4) % Absolute Granulocytes 16.02 H (1.4-6.9) x10^3/uL Basophils # 0.06 (0-0.4) x10^3/uL D-Dimer (0.0-0.50) mg/L Sodium 132 L (137-145) mmol/L Potassium 4.5 (3.5-5.1) mmol/L Chloride 96 L (98-107) mmol/L Carbon Dioxide 27 (22-30) mmol/L Anion Gap 14.1 (5-15) MEQ/L BUN 15 (7-17) mg/dL Creatinine 0.74 (0.52-1.04) mg/dL Estimated GFR > 60.0 ML/MIN Glucose 155 H (74-106) mg/dL Lactic Acid (0.4-2.0) Calcium 9.6 (8.4-10.2) mg/dL Total Bilirubin 0.80 (0.2-1.3) mg/dL AST 29 (14-36) U/L ALT 20 (0-35) U/L Alkaline Phosphatase 64 (38-126) U/L Troponin I < 0.012 (0.000-0.034) ng/mL NT-Pro-B Natriuret Pep (<300) pg/mL Serum Total Protein 7.2 (6.3-8.2) g/dL Albumin 4.4 (3.5-5.0) g/dL Lipase 68 (23-300) U/L TSH 3rd Generation (0.47-4.68) mIU/L Influenza Type A Ag (NEGATIVE) Influenza Type B Ag (NEGATIVE) RSV (PCR) (NEGATIVE) SARS-CoV-2 (PCR) (NEGATIVE) - Progress Progress: improved Progress Note: Case discussed with Dr. Don Chacon at 2:05 AM who accepts admission to observation. Plan of care discussed with patient. Patient agrees to admission for further evaluation and treatment of her dehydration and hypoxia. Per Dr. Chacon we will hold off on antibiotics at this time. Urinalysis pending. Patient's son updated with plan of care. Son/patient voices no other complaints or concerns at this time. 03/17/23 02:05 Patient is a 77-year-old female presents to our ED for evaluation of nausea vomiting and diarrhea. Upon arrival to our ED patient was observed to be dehydrated. Dry oral mucous membranes. Patient had a resting tachycardia. Patient complains of some abdominal discomfort. Patient initially declined a CAT scan. While in our ED patient developed hypoxia. Patient placed on 3 L nasal cannula. In light of the hypoxia a D-dimer was ordered. D-dimer resulted as positive. CTA chest was ordered. CTA negative for PE. Chronic findings observed including emphysema. Patient has a history of COPD. Work-up also include CBC CMP troponin UA TSH lactic acid, COVID test, lipase, blood culture, EKG. EKG revealed sinus tachycardia. This is likely secondary to dehydration from nausea vomiting and diarrhea. CBC revealed a leukocytosis of 18,000 and a polycythemia Leukocytosis and polycythemia likely secondary to hemoconcentration secondary to dehydration.. However CT abdomen pelvis revealed a inflamed distal ileum cecum and proximal ascending colon. This inflamed bowel likely contributed to the leukocytosis as well. Unclear whether the inflamed bowel is secondary to an infectious versus inflammatory etiology. COVID test negative. TSH ordered as patient had a baseline tachycardia. TSH resulted as normal. Lactic acid within normal range as well. Urinalysis pending. Patient will require admission for further evaluation and treatment of dehydration, inflamed bowel and hypoxia. Plan of care discussed with patient and son. They agree to admission at [facility] for further evaluation and treatment. Complexity of problems addressed as high, severe exacerbation or threat to bodily function. Patient became hypoxic. Patient's O2 sat decreased into the high 80s. This required a change in course of work-up and administration of oxygen via nasal cannula to investigate the underlying cause and prevent further deterioration. No critical care time Complexity of data reviewed and analyzed is extensive. Test ordered. Test reviewed and analyzed. Test findings were clinically correlated with history and physical exam. Management was discussed with accepting physician, Dr. Chacon who accepts admission to observation. Risk of complication and or risk morbidity/mortality of patient management is high. Patient required nebulizer treatment to manage hypoxia/shortness of breath. Patient requires hospitalization for further evaluation and treatment of underlying medical problems. Patient and son agreed to plan of care. Vitals have significantly improved. Tachycardia resolved. Patient feels clinically better. Time spent to admit patient approximately 15 minutes. Plan of care established for shared decision making. Patient and son voiced no other complaints or concerns at this time. Portions of this note were created with voice recognition technology. There may be grammatical, spelling, punctuation or sound alike errors 03/17/23 02:15 Counseled pt/family regarding: lab results, diagnosis, need for follow-up - Departure Departure Disposition: Observation Clinical Impression: Dehydration, Nausea vomiting and diarrhea, Generalized weakness, Leukocytosis, Polycythemia, Hyponatremia, Abnormal TBB-[id number] ratio, Tachycardia, Colitis, Diverticulosis, Renal cyst, left, Atherosclerotic plaque, Chronic bony changes, Emphysema lung, Calcified granuloma of lung, Atelectasis Condition: Stable Critical Care Time: No Referrals: ELIZABETH BELLO MD [Primary Care Provider] - Follow up/PCP as directed Instructions: Chronic Obstructive Pulmonary Disease Additional Instructions: Discharge/Care Plan FARRELLTIMMY IRVING was seen on 03/16/23 in the Emergency Room. The patient was counseled regarding Diagnosis,Lab results, Imaging studies, need for follow up and when to return to the Emergency Room. Prescriptions given: Discharge Note I have spoken with the patient and/or caregivers. I have explained the patient's condition, diagnosis and treatment plan based on the information available to me at this time. I have answered the patient's and/or caregiver's questions and addressed any concerns. The patient and/or caregivers have as good understanding of the patient's diagnosis, condition and treatment plan as can be expected at this point. The vital signs have been stable. The patient's condition is stable and appropriate for discharge from the emergency department. The patient will pursue further outpatient evaluation with the primary care physician or other designated or consulting physician as outlined in the discharge instructions. The patient and/or caregivers are agreeable to this plan of care and follow-up instructions have been explained in detail. The patient and/or caregivers have received these instruction. The patient/and or caregivers are aware that any significant change in condition or worsening of symptoms should prompt an immediate return to this or the closest emergency department or call 911.
[2023-03-16 21:08] LABS: INFLUENZA A NEGATIVE (NEGATIVE); INFLUENZA B NEGATIVE (NEGATIVE); RESPIRATORY SYNCTIAL VIRUS NEGATIVE (NEGATIVE); SARS-CoV-2 Xpert Express NEGATIVE (NEGATIVE)
[2023-03-16] MEDS ORDERED: PROVENTIL 2.5 MG/3 ML NEB IH ONE ×2 (22:23→22:31)
--- NOTE | 2023-03-16 23:22 | XRAY ---
CLINICAL HISTORY:sob COMPARISON:09/27/2015. TECHNIQUE:X-ray examination of the chest is performed in frontal/portable 1 view. FINDINGS: Slight rotation of patient is noted. Borderline heart enlarged heart size in this view. Unfolding of aorta. Prominent and coarse bronchovascular markings in both lungs. No definite/obvious air space shadowing in either lung. Cardiophrenic and costophrenic angles are clear. Mild right apical pleural thickening. Visualized bones are unremarkable. IMPRESSION: 1. Borderline heart enlarged heart size in this view. Unfolding of aorta. Echocardiography suggested. 2. Prominent and coarse bronchovascular markings in both lungs could be due to chronic bronchitic changes. 3. No acute pulmonary disease. 4. A small patchy shadow at right mid-zone seen in previous study is not visualized at this time. Electronically Signed by: Joe Sibley MD. (03/16/2023 22:20:01 SUBGRADE ROLLER OPERATOR)
--- NOTE | 2023-03-17 01:18 | XRAY ---
CLINICAL HISTORY:pain, diarrhea, colitis? COMPARISON:07/22/2022 CT TECHNIQUE:CT scan of the abdomen and pelvis was performed with IV contrast. Coronal and sagittal reconstructive images were also obtained. FINDINGS: Abdomen: Mild edematous mural thickening is seen involving the terminal ileum, cecum and proximal ascending colon, measuring 6 mm in maximum thickness with increased surrounding vascularity. Possibility of infective/inflammatory etiology appears likely. Uncomplicated diverticulosis was noted involving descending colon and sigmoid colon. The liver is of average size. No focal or diffuse parenchymal abnormality. The intrahepatic biliary radicals and the bile ducts are normal. The spleen, pancreas, and adrenal glands are unremarkable. The kidneys are unremarkable. They are normal in size and shape. No calculi or hydronephrosis. A 15 mm simple cortical cyst was seen at the upper pole of the left kidney. The gallbladder is distended. There is no evidence of wall thickening/ pericholecystic collection. The rest of visualized small bowel loops are unremarkable. There is no evidence of significant enlargement of the mesenteric or retroperitoneal lymph nodes. The abdominal aorta and its branches show atherosclerotic changes with calcified plaques. Pelvis: The urinary bladder is unremarkable. The rectosigmoid colon is unremarkable. The uterus is surgically removed. No evidence of pelvic lymphadenopathy. The lumbar spine shows degenerative changes with dextroscoliosis. IMPRESSION: 1. Mild edematous mural thickening involving terminal ileum, cecum and proximal ascending colon, measuring 6 mm in maximum thickness with increased surrounding vascularity. Possibility of infective/inflammatory etiology appears likely. Interval new finding compared to previous examination. 2. Uncomplicated diverticulosis involving descending colon and sigmoid colon. Electronically Signed by: Joe iSbley MD. (03/17/2023 00:17:39 PATIENT SUPPORT TECH)
--- NOTE | 2023-03-17 01:26 | XRAY ---
CLINICAL HISTORY:SOB, hypoxia, tachycardia, PE? COMPARISON:01/24/2007. TECHNIQUE:CT chest with IV contrast in the axial, coronal, and sagittal planes. FINDINGS: No pulmonary infiltrate was identified. No pulmonary mass was identified. Mild subpleural para septal emphysematous lung changes are seen. Bibasal atelectatic bands are seen. A calcified granuloma is noted in left lower lobe measuring 6 mm. No pleural effusions identified. No pneumothorax. The airway is clear. No mediastinal, axillary, or supraclavicular adenopathy is identified. Heart and great vessels are not enlarged. No gross pulmonary filling defect in main arteries. No acute or destructive osseous abnormality. Limited visualization of the solid upper abdominal organs is grossly unremarkable. IMPRESSION: Mild subpleural para septal emphysematous lung changes, stable since previous study Mild bibasal atelectatic lung changes, new since previous study. No acute cardiopulmonary abnormality is seen. Electronically Signed by: Joe Sibley MD. (03/17/2023 00:24:29 DRAFTER TOOL DESIGN)
[2023-03-17] MEDS ORDERED: solu-MEDROL 125 MG, Sterile H2O 10 ml 2 ML IV ONE ×2 (01:45)
[2023-03-17] MEDS ORDERED: solu-MEDROL ONE (01:52)
[2023-03-17] MEDS ORDERED: Sterile H2O 10 ml IJ ONE (01:52)
[2023-03-17 02:18] LABS: Appearance Clear (Clear); Bacteria None Seen /HPF (None Seen); Bilirubin Negative (Negative); Blood NHT (Negative); Epithelial Cells None Seen /HPF (None Seen); Glucose, Urine Negative (Negative); Ketones Trace (Negative); Leukocyte Esterase Negative (Negative); Nitrite Negative (Negative); Protein,Urine Dip 30 (Negative); Specific Gravity >=1.030 (1.005-1.030); Urobilinogen 0.2 mg/dL (0.2); WBC 0-2 /HPF (0-5)
[2023-03-17 02:20] LABS: ADD URINE CULTURE? NO (NO)
[2023-03-17] MEDS: Sodium Chloride 0.9% 1000 ML 1,000 ML IV SCH (02:51)
[2023-03-17] MEDS: PROVENTIL 2.5 MG/3 ML NEB IH SCH ×2 (04:08→06:42)
[2023-03-17 04:45] LABS: Hematocrit 44.1 % (35-47); Mean Cell Volume 92.8 fL (78-100); Mean Corpuscular Hemoglobin 31.6 pg (26-32); Platelet Count 224 x10^3/uL (150-450); Red Blood Count 4.75 x10^6/uL (4.1-5.4); Red Cell Distribution Width 14.2 % (11.5-14.0); White Blood Count 15.8 x10^3/uL (4.0-10.5)
[2023-03-17 04:54] LABS: ALBUMIN 3.8 g/dL (3.5-5.0); ALKALINE PHOSPHATASE 54 U/L (38-126); ANION GAP 12.8 MEQ/L (5-15); BLOOD UREA NITROGEN 14 mg/dL (7-17); CHLORIDE 98 mmol/L (98-107); Calcium 8.1 mg/dL (8.4-10.2); Carbon Dioxide 23 mmol/L (22-30); Creatinine 1 0.62 mg/dL (0.52-1.04); EST GLOMERULAR FILTRATION RATE > 60.0 ML/MIN; Glucose 145 mg/dL (74-106); Potassium 3.8 mmol/L (3.5-5.1); SGOT/AST 23 U/L (14-36); SGPT/ALT 17 U/L (0-35); SODIUM 130 mmol/L (137-145); Total Protein 6.8 g/dL (6.3-8.2)
--- NOTE | 2023-03-17 06:28 | PCM.HP ---
History of Present Illness - Chief Complaint Chief Complaint: Nausea vomiting diarrhea, dehydration, COPD exacerbation, h ypoxia History of Present Illness: is a 77 year old female with COPD, hypertensiono who presents with 2 days of nausea, vomiting and diarrhea. She does not report a fever. Diarrhea is loose without blood or mucus. She also reports some mild SOB with wheezing as well. No abdominal pain, cramping, rashes. - Review of Systems Constitutional: Fatigue, Malaise Eyes: No Symptoms Ears, Nose, & Throat: No Symptoms Respiratory: Wheezing Cardiac: No Chest Pain, No Edema, No Syncope Abdominal/Gastrointestinal: Nausea, Vomiting, Diarrhea Genitourinary Symptoms: No Dysuria Musculoskeletal: No Back Pain, No Neck Pain Skin: No Rash Neurological: No Dizziness, No Focal Weakness, No Sensory Changes Psychological: No Symptoms Endocrine: No Symptoms Hematologic/Lymphatic: No Symptoms Immunological/Allergic: No Symptoms Medications & Allergies Home Medications: Home Medication List Fluticasone/Vilanterol [Breo Ellipta 100-25 Mcg INH] 1 each IH UD 11/16/16 [His tory Confirmed 03/17/23] Amlodipine Besylate 5 mg [Norvasc 5 mg] 5 mg PO DAILY 07/22/22 [History Confirmed 03/17/23] Ibandronate Sodium [Boniva] 150 mg PO UD 07/22/22 [History Confirmed 03/17/23] Lisinopril 5 mg [Zestril 5 MG] 5 mg PO DAILY MDD 5 mg 07/22/22 [History Confirmed 03/17/23] Allergies/Adverse Reactions: Allergies Allergy/AdvReac Type Severity Reaction Status Date / Time moxifloxacin HCl Allergy Severe Hives Verified 03/17/23 03:29 [From Avelox] oseltamivir [From Tamiflu] Allergy Severe Swelling Verified 03/16/23 19:34 of Face Sulfa (Sulfonamide Allergy Mild Hives Verified 03/17/23 03:30 Antibiotics) codeine Allergy Hives Verified 03/17/23 03:30 Penicillins Allergy Hives Verified 03/17/23 03:30 - Past Medical History Past Medical History: Yes Neurological History: No Pertinent History ENT History: No Pertinent History Cardiac History: Hypertension Respiratory History: COPD Endocrine Medical History: No Pertinent History Musculoskelatal History: No Pertinent History GI Medical History: No Pertinent History History: No Pertinent History Pyscho-Social History: No Pertinent History Reproductive Disorders: No Pertinent History - Past Surgical History Past Surgical History: Yes Neuro Surgical History: No Pertinent History Cardiac History: No Pertinent History Respiratory Surgery: No Pertinent History GI Surgical History: No Pertinent History Genitourinary Surgical Hx: No Pertinent History Musculskeletal Surgical Hx: Other Female Surgical History: Hysterectomy Other Surgical History: knee scope - Social History Smoking Status: Former smoker Exposure to second hand smoke: No Alcohol: None Drug Use: none - Physical Exam Vital Signs: Vital Signs - 24 hr Temp Pulse Resp BP BP Pulse Ox 03/17/23 03:20 84 20 94 L 03/17/23 02:31 97 03/17/23 02:00 98 H 20 116/72 95 03/17/23 01:40 89 20 115/59 95 03/17/23 01:39 93 H 18 94 L 03/17/23 01:32 88 25 H 115/59 95 03/17/23 01:00 90 26 H 112/43 91 L 03/17/23 00:44 96 H 18 106/47 95 03/17/23 00:43 93 H 25 H 93 L 03/17/23 00:40 97 H 21 106/47 96 03/17/23 00:35 93 L 03/17/23 00:01 86/34 03/17/23 00:00 123 H 25 H 89/42 90 L 03/16/23 23:30 123 H 20 110/56 90 L 03/16/23 23:00 128 H 24 117/57 94 L 03/16/23 22:38 97 03/16/23 22:36 121 H 18 95 03/16/23 22:30 124 H 18 159/97 96 03/16/23 22:17 122 H 30 H 165/92 91 L 03/16/23 22:00 151/77 87 L 03/16/23 21:30 166/82 94 L 03/16/23 21:00 114 H 146/68 97 03/16/23 20:30 115 H 140/78 140/78 95 03/16/23 20:00 119 H 163/83 98 03/16/23 19:48 133/76 94 L 03/16/23 19:37 98.7 F 117 H 22 147/93 96 03/16/23 19:35 96 03/16/23 19:33 147/93 93 L General Appearance: no apparent distress, alert Neurologic Exam: alert, oriented x 3, cooperative, normal mood/affect, nml cerebellar function, nml station & gait, sensation nml, No motor deficits Eye Exam: PERRL/EOMI, eyes nml inspection Respiratory Exam: normal breath sounds, lungs clear, No respiratory distress Cardiovascular Exam: regular rate/rhythm, normal heart sounds, normal peripheral pulses Gastrointestinal/Abdomen Exam: soft, normal bowel sounds, No tenderness, No mass Extremity Exam: normal inspection, normal range of motion, pelvis stable Skin Exam: normal color, warm, dry, No rash Results - Labs Lab/Micro Results: Lab Results-Last 24 Hours 03/16/23 03/16/23 03/16/23 Range/Units 20:00 20:00 20:00 WBC 18.3 H (4.0-10.5) x10^3/uL RBC 5.30 (4.1-5.4) x10^6/uL Hgb 16.6 H (12.0-16.0) g/dL Hct 50.4 H (35-47) % MCV 95.1 (78-100) fL MCH 31.3 (26-32) pg MCHC 32.9 (32-36) g/dL RDW 14.0 (11.5-14.0) % Plt Count 251 (150-450) x10^3/uL MPV 11.2 H (7.5-11.0) fL Gran % 87.7 H (36.0-66.0) % Immature Gran % (Auto) 0.4 (0.00-0.4) % Nucleat RBC Rel Count 0.0 (0.00-0.1) % Eos # (Auto) 0 (0-0.5) x10^3/uL Immature Gran # (Auto) 0.08 H (0.00-0.03) x10^3u/L Absolute Lymphs (auto) 0.96 L (1.0-4.6) x10^3/uL Absolute Monos (auto) 1.15 (0.0-1.3) x10^3/uL Absolute Nucleated RBC 0.00 (0.00-0.01) x10^3u/L Lymphocytes % 5.3 L (24.0-44.0) % Monocytes % 6.3 (0.0-12.0) % Eosinophils % 0.0 (0.00-5.0) % Basophils % 0.3 (0.0-0.4) % Absolute Granulocytes 16.02 H (1.4-6.9) x10^3/uL Basophils # 0.06 (0-0.4) x10^3/uL D-Dimer (0.0-0.50) mg/L Sodium 132 L (137-145) mmol/L Potassium 4.5 (3.5-5.1) mmol/L Chloride 96 L (98-107) mmol/L Carbon Dioxide 27 (22-30) mmol/L Anion Gap 14.1 (5-15) MEQ/L BUN 15 (7-17) mg/dL Creatinine 0.74 (0.52-1.04) mg/dL Estimated GFR > 60.0 ML/MIN Glucose 155 H (74-106) mg/dL Lactic Acid (0.4-2.0) Calcium 9.6 (8.4-10.2) mg/dL Total Bilirubin 0.80 (0.2-1.3) mg/dL AST 29 (14-36) U/L ALT 20 (0-35) U/L Alkaline Phosphatase 64 (38-126) U/L Troponin I < 0.012 (0.000-0.034) ng/mL NT-Pro-B Natriuret Pep (<300) pg/mL Serum Total Protein 7.2 (6.3-8.2) g/dL Albumin 4.4 (3.5-5.0) g/dL Lipase 68 (23-300) U/L TSH 3rd Generation (0.47-4.68) mIU/L Urine Color (Yellow) Urine Appearance (Clear) Urine pH (4.6-8.0) Ur Specific [place] (1.005-1.030) Urine Protein (Negative) Urine Glucose (UA) (Negative) mg/dL Urine Ketones (Negative) Urine Blood (Negative) Urine Nitrite (Negative) Urine Bilirubin (Negative) Urine Urobilinogen (0.2) mg/dL Ur Leukocyte Esterase (Negative) U Hyaline Cast (Auto) (0-2) /LPF Urine Microscopic RBC (0-5) /HPF Urine Microscopic WBC (0-5) /HPF Ur Epithelial Cells (None Seen) /HPF Urine Bacteria (None Seen) /HPF Urine Culture Reflexed (NO) Influenza Type A Ag (NEGATIVE) Influenza Type B Ag (NEGATIVE) RSV (PCR) (NEGATIVE) SARS-CoV-2 (PCR) (NEGATIVE) 03/16/23 03/16/23 03/16/23 Range/Units 20:00 20:25 22:40 WBC (4.0-10.5) x10^3/uL RBC (4.1-5.4) x10^6/uL Hgb (12.0-16.0) g/dL Hct (35-47) % MCV (78-100) fL MCH (26-32) pg MCHC (32-36) g/dL RDW (11.5-14.0) % Plt Count (150-450) x10^3/uL MPV (7.5-11.0) fL Gran % (36.0-66.0) % Immature Gran % (Auto) (0.00-0.4) % Nucleat RBC Rel Count (0.00-0.1) % Eos # (Auto) (0-0.5) x10^3/uL Immature Gran # (Auto) (0.00-0.03) x10^3u/L Absolute Lymphs (auto) (1.0-4.6) x10^3/uL Absolute Monos (auto) (0.0-1.3) x10^3/uL Absolute Nucleated RBC (0.00-0.01) x10^3u/L Lymphocytes % (24.0-44.0) % Monocytes % (0.0-12.0) % Eosinophils % (0.00-5.0) % Basophils % (0.0-0.4) % Absolute Granulocytes (1.4-6.9) x10^3/uL Basophils # (0-0.4) x10^3/uL D-Dimer (0.0-0.50) mg/L Sodium (137-145) mmol/L Potassium (3.5-5.1) mmol/L Chloride (98-107) mmol/L Carbon Dioxide (22-30) mmol/L Anion Gap (5-15) MEQ/L BUN (7-17) mg/dL Creatinine (0.52-1.04) mg/dL Estimated GFR ML/MIN Glucose (74-106) mg/dL Lactic Acid 1.6 (0.4-2.0) Calcium (8.4-10.2) mg/dL Total Bilirubin (0.2-1.3) mg/dL AST (14-36) U/L ALT (0-35) U/L Alkaline Phosphatase (38-126) U/L Troponin I (0.000-0.034) ng/mL NT-Pro-B Natriuret Pep 541 (<300) pg/mL Serum Total Protein (6.3-8.2) g/dL Albumin (3.5-5.0) g/dL Lipase (23-300) U/L TSH 3rd Generation (0.47-4.68) mIU/L Urine Color (Yellow) Urine Appearance (Clear) Urine pH (4.6-8.0) Ur Specific [place] (1.005-1.030) Urine Protein (Negative) Urine Glucose (UA) (Negative) mg/dL Urine Ketones (Negative) Urine Blood (Negative) Urine Nitrite (Negative) Urine Bilirubin (Negative) Urine Urobilinogen (0.2) mg/dL Ur Leukocyte Esterase (Negative) U Hyaline Cast (Auto) (0-2) /LPF Urine Microscopic RBC (0-5) /HPF Urine Microscopic WBC (0-5) /HPF Ur Epithelial Cells (None Seen) /HPF Urine Bacteria (None Seen) /HPF Urine Culture Reflexed (NO) Influenza Type A Ag NEGATIVE (NEGATIVE) Influenza Type B Ag NEGATIVE (NEGATIVE) RSV (PCR) NEGATIVE (NEGATIVE) SARS-CoV-2 (PCR) NEGATIVE (NEGATIVE) 03/16/23 03/17/23 03/17/23 Range/Units 23:15 00:00 00:45 WBC (4.0-10.5) x10^3/uL RBC (4.1-5.4) x10^6/uL Hgb (12.0-16.0) g/dL Hct (35-47) % MCV (78-100) fL MCH (26-32) pg MCHC (32-36) g/dL RDW (11.5-14.0) % Plt Count (150-450) x10^3/uL MPV (7.5-11.0) fL Gran % (36.0-66.0) % Immature Gran % (Auto) (0.00-0.4) % Nucleat RBC Rel Count (0.00-0.1) % Eos # (Auto) (0-0.5) x10^3/uL Immature Gran # (Auto) (0.00-0.03) x10^3u/L Absolute Lymphs (auto) (1.0-4.6) x10^3/uL Absolute Monos (auto) (0.0-1.3) x10^3/uL Absolute Nucleated RBC (0.00-0.01) x10^3u/L Lymphocytes % (24.0-44.0) % Monocytes % (0.0-12.0) % Eosinophils % (0.00-5.0) % Basophils % (0.0-0.4) % Absolute Granulocytes (1.4-6.9) x10^3/uL Basophils # (0-0.4) x10^3/uL D-Dimer 1.59 H* (0.0-0.50) mg/L Sodium (137-145) mmol/L Potassium (3.5-5.1) mmol/L Chloride (98-107) mmol/L Carbon Dioxide (22-30) mmol/L Anion Gap (5-15) MEQ/L BUN (7-17) mg/dL Creatinine (0.52-1.04) mg/dL Estimated GFR ML/MIN Glucose (74-106) mg/dL Lactic Acid (0.4-2.0) Calcium (8.4-10.2) mg/dL Total Bilirubin (0.2-1.3) mg/dL AST (14-36) U/L ALT (0-35) U/L Alkaline Phosphatase (38-126) U/L Troponin I < 0.012 (0.000-0.034) ng/mL NT-Pro-B Natriuret Pep (<300) pg/mL Serum Total Protein (6.3-8.2) g/dL Albumin (3.5-5.0) g/dL Lipase (23-300) U/L TSH 3rd Generation 1.440 (0.47-4.68) mIU/L Urine Color (Yellow) Urine Appearance (Clear) Urine pH (4.6-8.0) Ur Specific [place] (1.005-1.030) Urine Protein (Negative) Urine Glucose (UA) (Negative) mg/dL Urine Ketones (Negative) Urine Blood (Negative) Urine Nitrite (Negative) Urine Bilirubin (Negative) Urine Urobilinogen (0.2) mg/dL Ur Leukocyte Esterase (Negative) U Hyaline Cast (Auto) (0-2) /LPF Urine Microscopic RBC (0-5) /HPF Urine Microscopic WBC (0-5) /HPF Ur Epithelial Cells (None Seen) /HPF Urine Bacteria (None Seen) /HPF Urine Culture Reflexed (NO) Influenza Type A Ag (NEGATIVE) Influenza Type B Ag (NEGATIVE) RSV (PCR) (NEGATIVE) SARS-CoV-2 (PCR) (NEGATIVE) 03/17/23 03/17/23 03/17/23 Range/Units 01:39 04:18 04:18 WBC 15.8 H (4.0-10.5) x10^3/uL RBC 4.75 (4.1-5.4) x10^6/uL Hgb 15.0 (12.0-16.0) g/dL Hct 44.1 (35-47) % MCV 92.8 (78-100) fL MCH 31.6 (26-32) pg MCHC 34.0 (32-36) g/dL RDW 14.2 H (11.5-14.0) % Plt Count 224 (150-450) x10^3/uL MPV 11.0 (7.5-11.0) fL Gran % (36.0-66.0) % Immature Gran % (Auto) (0.00-0.4) % Nucleat RBC Rel Count (0.00-0.1) % Eos # (Auto) (0-0.5) x10^3/uL Immature Gran # (Auto) (0.00-0.03) x10^3u/L Absolute Lymphs (auto) (1.0-4.6) x10^3/uL Absolute Monos (auto) (0.0-1.3) x10^3/uL Absolute Nucleated RBC (0.00-0.01) x10^3u/L Lymphocytes % (24.0-44.0) % Monocytes % (0.0-12.0) % Eosinophils % (0.00-5.0) % Basophils % (0.0-0.4) % Absolute Granulocytes (1.4-6.9) x10^3/uL Basophils # (0-0.4) x10^3/uL D-Dimer (0.0-0.50) mg/L Sodium (137-145) mmol/L Potassium (3.5-5.1) mmol/L Chloride (98-107) mmol/L Carbon Dioxide (22-30) mmol/L Anion Gap (5-15) MEQ/L BUN (7-17) mg/dL Creatinine (0.52-1.04) mg/dL Estimated GFR ML/MIN Glucose (74-106) mg/dL Lactic Acid (0.4-2.0) Calcium (8.4-10.2) mg/dL Total Bilirubin (0.2-1.3) mg/dL AST (14-36) U/L ALT (0-35) U/L Alkaline Phosphatase (38-126) U/L Troponin I < 0.012 (0.000-0.034) ng/mL NT-Pro-B Natriuret Pep (<300) pg/mL Serum Total Protein (6.3-8.2) g/dL Albumin (3.5-5.0) g/dL Lipase (23-300) U/L TSH 3rd Generation (0.47-4.68) mIU/L Urine Color Yellow (Yellow) Urine Appearance Clear (Clear) Urine pH 6.0 (4.6-8.0) Ur Specific [place] >=1.030 A (1.005-1.030) Urine Protein 30 (Negative) Urine Glucose (UA) Negative (Negative) mg/dL Urine Ketones Trace A (Negative) Urine Blood NHT (Negative) Urine Nitrite Negative (Negative) Urine Bilirubin Negative (Negative) Urine Urobilinogen 0.2 (0.2) mg/dL Ur Leukocyte Esterase Negative (Negative) U Hyaline Cast (Auto) 3-5 A (0-2) /LPF Urine Microscopic RBC 6-10 A (0-5) /HPF Urine Microscopic WBC 0-2 (0-5) /HPF Ur Epithelial Cells None Seen (None Seen) /HPF Urine Bacteria None Seen (None Seen) /HPF Urine Culture Reflexed NO (NO) Influenza Type A Ag (NEGATIVE) Influenza Type B Ag (NEGATIVE) RSV (PCR) (NEGATIVE) SARS-CoV-2 (PCR) (NEGATIVE) 03/17/23 Range/Units 04:18 WBC (4.0-10.5) x10^3/uL RBC (4.1-5.4) x10^6/uL Hgb (12.0-16.0) g/dL Hct (35-47) % MCV (78-100) fL MCH (26-32) pg MCHC (32-36) g/dL RDW (11.5-14.0) % Plt Count (150-450) x10^3/uL MPV (7.5-11.0) fL Gran % (36.0-66.0) % Immature Gran % (Auto) (0.00-0.4) % Nucleat RBC Rel Count (0.00-0.1) % Eos # (Auto) (0-0.5) x10^3/uL Immature Gran # (Auto) (0.00-0.03) x10^3u/L Absolute Lymphs (auto) (1.0-4.6) x10^3/uL Absolute Monos (auto) (0.0-1.3) x10^3/uL Absolute Nucleated RBC (0.00-0.01) x10^3u/L Lymphocytes % (24.0-44.0) % Monocytes % (0.0-12.0) % Eosinophils % (0.00-5.0) % Basophils % (0.0-0.4) % Absolute Granulocytes (1.4-6.9) x10^3/uL Basophils # (0-0.4) x10^3/uL D-Dimer (0.0-0.50) mg/L Sodium 130 L (137-145) mmol/L Potassium 3.8 (3.5-5.1) mmol/L Chloride 98 (98-107) mmol/L Carbon Dioxide 23 (22-30) mmol/L Anion Gap 12.8 (5-15) MEQ/L BUN 14 (7-17) mg/dL Creatinine 0.62 (0.52-1.04) mg/dL Estimated GFR > 60.0 ML/MIN Glucose 145 H (74-106) mg/dL Lactic Acid (0.4-2.0) Calcium 8.1 L D (8.4-10.2) mg/dL Total Bilirubin 0.50 (0.2-1.3) mg/dL AST 23 (14-36) U/L ALT 17 (0-35) U/L Alkaline Phosphatase 54 (38-126) U/L Troponin I (0.000-0.034) ng/mL NT-Pro-B Natriuret Pep (<300) pg/mL Serum Total Protein 6.8 (6.3-8.2) g/dL Albumin 3.8 (3.5-5.0) g/dL Lipase (23-300) U/L TSH 3rd Generation (0.47-4.68) mIU/L Urine Color (Yellow) Urine Appearance (Clear) Urine pH (4.6-8.0) Ur Specific [place] (1.005-1.030) Urine Protein (Negative) Urine Glucose (UA) (Negative) mg/dL Urine Ketones (Negative) Urine Blood (Negative) Urine Nitrite (Negative) Urine Bilirubin (Negative) Urine Urobilinogen (0.2) mg/dL Ur Leukocyte Esterase (Negative) U Hyaline Cast (Auto) (0-2) /LPF Urine Microscopic RBC (0-5) /HPF Urine Microscopic WBC (0-5) /HPF Ur Epithelial Cells (None Seen) /HPF Urine Bacteria (None Seen) /HPF Urine Culture Reflexed (NO) Influenza Type A Ag (NEGATIVE) Influenza Type B Ag (NEGATIVE) RSV (PCR) (NEGATIVE) SARS-CoV-2 (PCR) (NEGATIVE) - Radiology Impressions Radiology Exams & Impressions: Radiology Procedures Category Date Time Status ABDOMEN AND PELVIS W CONTRAST [CT] Stat Exams 03/16/23 23:41 Completed CHEST 1 VIEW (PORTABLE) Stat Exams 03/16/23 22:19 Completed CHEST WITH CONTRAST [CT] Stat Exams 03/16/23 23:37 Completed - Other Procedures and Tests Respiratory Therapy 03/16/23 22:54 Respiratory Therapy Assessment DAILY 03/17/23 04:16 Oxygen Nasal Cannula 3 lpm 03/17/23 04:28 Respiratory MDI BID Assessment/Plan (1) Vomiting and diarrhea Current Visit: No Status: Acute Assessment & Plan: 1. Send C-diff 2. Zofran PRN 3. Hydration 4. Liquid diet Code(s): R11.10 - VOMITING, UNSPECIFIED; R19.7 - DIARRHEA, UNSPECIFIED (2) COPD (chronic obstructive pulmonary disease) Current Visit: Yes Status: Acute Assessment & Plan: Parth May stop steroids today if patient no longer wheezing (started in ED) Telemedicine Encounter - Telemedicine Encounter Telemedicine Encounter: The entirety of this encounter was performed via Telemedicine"
[2023-03-17] MEDS ORDERED: Advair Hfa 115/21 Common canister IH SCH ×3 (07:00→10:41)
[2023-03-17] MEDS ORDERED: NORVASC 5 MG PO SCH (10:00)
[2023-03-17] MEDS ORDERED: PROVENTIL 2.5 MG/3 ML NEB IH PRN (10:37)
[2023-03-17] MEDS: solu-MEDROL 60 MG, Sterile H2O 10 ml 2 ML IV SCH ×4 (10:42→10:44)
--- NOTE | 2023-03-17 12:52 | PCM.NOTE ---
Date and Time: 03/17/23 1248 Subjective Assessment: Met and examined patient beside. Endorses two loose stools overnight but no further episodes of nausea and vomiting. Patient currently on 3L NC, but reports she has not been short of breath. Patient does have diminished lung sounds bilaterally. CT of chest negative for cardiopulmonary process. CT of abdom en/pelvis consistent with infective/inflammatory process. - Review of Systems Constitutional: Fatigue Eyes: No Symptoms Ears, Nose, & Throat: No Symptoms Respiratory: No Symptoms Cardiac: No Symptoms Abdominal/Gastrointestinal: Diarrhea, Appetite Changes (poor appetite secondary to N/V) Genitourinary Symptoms: No Symptoms Objective Exam General Appearance: no apparent distress, lethargy Neurologic Exam: oriented x 3 Skin Exam: warm, dry Eye Exam: PERRL Respiratory Exam: diminished breath sounds Gastrointestinal/Abdomen Exam: other (hyperactive BS x 4 quads) OBJECTIVE DATA Vital Signs: Vital Signs - 24 hr Temp Pulse Resp BP BP Pulse Ox 03/17/23 11:40 94 L 03/17/23 11:26 97.2 F 88 16 155/55 94 L 03/17/23 10:39 83 20 96 03/17/23 07:12 97.1 F 80 17 117/55 94 L 03/17/23 06:43 84 18 94 L 03/17/23 03:20 84 20 94 L 03/17/23 02:31 97 03/17/23 02:00 98 H 20 116/72 95 03/17/23 01:40 89 20 115/59 95 03/17/23 01:39 93 H 18 94 L 03/17/23 01:32 88 25 H 115/59 95 03/17/23 01:00 90 26 H 112/43 91 L 03/17/23 00:44 96 H 18 106/47 95 03/17/23 00:43 93 H 25 H 93 L 03/17/23 00:40 97 H 21 106/47 96 03/17/23 00:35 93 L 03/17/23 00:01 86/34 03/17/23 00:00 123 H 25 H 89/42 90 L 03/16/23 23:30 123 H 20 110/56 90 L 03/16/23 23:00 128 H 24 117/57 94 L 03/16/23 22:38 97 03/16/23 22:36 121 H 18 95 03/16/23 22:30 124 H 18 159/97 96 03/16/23 22:17 122 H 30 H 165/92 91 L 03/16/23 22:00 151/77 87 L 03/16/23 21:30 166/82 94 L 03/16/23 21:00 114 H 146/68 97 03/16/23 20:30 115 H 140/78 140/78 95 03/16/23 20:00 119 H 163/83 98 03/16/23 19:48 133/76 94 L 03/16/23 19:37 98.7 F 117 H 22 147/93 96 03/16/23 19:35 96 03/16/23 19:33 147/93 93 L Pain Assessment - Last Documented Pain Intensity 0 Intake and Output: Intake & Output 03/15/23 03/16/23 03/17/23 03/18/23 11:59 11:59 11:59 11:59 Intake Total 100 Balance 100 Weight 87.4 kg Lab Results: Lab Results-Last 24 Hours 03/16/23 03/16/23 03/16/23 Range/Units 20:00 20:00 20:00 WBC 18.3 H (4.0-10.5) x10^3/uL RBC 5.30 (4.1-5.4) x10^6/uL Hgb 16.6 H (12.0-16.0) g/dL Hct 50.4 H (35-47) % MCV 95.1 (78-100) fL MCH 31.3 (26-32) pg MCHC 32.9 (32-36) g/dL RDW 14.0 (11.5-14.0) % Plt Count 251 (150-450) x10^3/uL MPV 11.2 H (7.5-11.0) fL Gran % 87.7 H (36.0-66.0) % Immature Gran % (Auto) 0.4 (0.00-0.4) % Nucleat RBC Rel Count 0.0 (0.00-0.1) % Eos # (Auto) 0 (0-0.5) x10^3/uL Immature Gran # (Auto) 0.08 H (0.00-0.03) x10^3u/L Absolute Lymphs (auto) 0.96 L (1.0-4.6) x10^3/uL Absolute Monos (auto) 1.15 (0.0-1.3) x10^3/uL Absolute Nucleated RBC 0.00 (0.00-0.01) x10^3u/L Lymphocytes % 5.3 L (24.0-44.0) % Monocytes % 6.3 (0.0-12.0) % Eosinophils % 0.0 (0.00-5.0) % Basophils % 0.3 (0.0-0.4) % Absolute Granulocytes 16.02 H (1.4-6.9) x10^3/uL Basophils # 0.06 (0-0.4) x10^3/uL D-Dimer (0.0-0.50) mg/L Sodium 132 L (137-145) mmol/L Potassium 4.5 (3.5-5.1) mmol/L Chloride 96 L (98-107) mmol/L Carbon Dioxide 27 (22-30) mmol/L Anion Gap 14.1 (5-15) MEQ/L BUN 15 (7-17) mg/dL Creatinine 0.74 (0.52-1.04) mg/dL Estimated GFR > 60.0 ML/MIN Glucose 155 H (74-106) mg/dL Lactic Acid (0.4-2.0) Calcium 9.6 (8.4-10.2) mg/dL Total Bilirubin 0.80 (0.2-1.3) mg/dL AST 29 (14-36) U/L ALT 20 (0-35) U/L Alkaline Phosphatase 64 (38-126) U/L Troponin I < 0.012 (0.000-0.034) ng/mL NT-Pro-B Natriuret Pep (<300) pg/mL Serum Total Protein 7.2 (6.3-8.2) g/dL Albumin 4.4 (3.5-5.0) g/dL Lipase 68 (23-300) U/L TSH 3rd Generation (0.47-4.68) mIU/L Urine Color (Yellow) Urine Appearance (Clear) Urine pH (4.6-8.0) Ur Specific [place] (1.005-1.030) Urine Protein (Negative) Urine Glucose (UA) (Negative) mg/dL Urine Ketones (Negative) Urine Blood (Negative) Urine Nitrite (Negative) Urine Bilirubin (Negative) Urine Urobilinogen (0.2) mg/dL Ur Leukocyte Esterase (Negative) U Hyaline Cast (Auto) (0-2) /LPF Urine Microscopic RBC (0-5) /HPF Urine Microscopic WBC (0-5) /HPF Ur Epithelial Cells (None Seen) /HPF Urine Bacteria (None Seen) /HPF Urine Culture Reflexed (NO) Influenza Type A Ag (NEGATIVE) Influenza Type B Ag (NEGATIVE) RSV (PCR) (NEGATIVE) SARS-CoV-2 (PCR) (NEGATIVE) 03/16/23 03/16/23 03/16/23 Range/Units 20:00 20:25 22:40 WBC (4.0-10.5) x10^3/uL RBC (4.1-5.4) x10^6/uL Hgb (12.0-16.0) g/dL Hct (35-47) % MCV (78-100) fL MCH (26-32) pg MCHC (32-36) g/dL RDW (11.5-14.0) % Plt Count (150-450) x10^3/uL MPV (7.5-11.0) fL Gran % (36.0-66.0) % Immature Gran % (Auto) (0.00-0.4) % Nucleat RBC Rel Count (0.00-0.1) % Eos # (Auto) (0-0.5) x10^3/uL Immature Gran # (Auto) (0.00-0.03) x10^3u/L Absolute Lymphs (auto) (1.0-4.6) x10^3/uL Absolute Monos (auto) (0.0-1.3) x10^3/uL Absolute Nucleated RBC (0.00-0.01) x10^3u/L Lymphocytes % (24.0-44.0) % Monocytes % (0.0-12.0) % Eosinophils % (0.00-5.0) % Basophils % (0.0-0.4) % Absolute Granulocytes (1.4-6.9) x10^3/uL Basophils # (0-0.4) x10^3/uL D-Dimer (0.0-0.50) mg/L Sodium (137-145) mmol/L Potassium (3.5-5.1) mmol/L Chloride (98-107) mmol/L Carbon Dioxide (22-30) mmol/L Anion Gap (5-15) MEQ/L BUN (7-17) mg/dL Creatinine (0.52-1.04) mg/dL Estimated GFR ML/MIN Glucose (74-106) mg/dL Lactic Acid 1.6 (0.4-2.0) Calcium (8.4-10.2) mg/dL Total Bilirubin (0.2-1.3) mg/dL AST (14-36) U/L ALT (0-35) U/L Alkaline Phosphatase (38-126) U/L Troponin I (0.000-0.034) ng/mL NT-Pro-B Natriuret Pep 541 (<300) pg/mL Serum Total Protein (6.3-8.2) g/dL Albumin (3.5-5.0) g/dL Lipase (23-300) U/L TSH 3rd Generation (0.47-4.68) mIU/L Urine Color (Yellow) Urine Appearance (Clear) Urine pH (4.6-8.0) Ur Specific [place] (1.005-1.030) Urine Protein (Negative) Urine Glucose (UA) (Negative) mg/dL Urine Ketones (Negative) Urine Blood (Negative) Urine Nitrite (Negative) Urine Bilirubin (Negative) Urine Urobilinogen (0.2) mg/dL Ur Leukocyte Esterase (Negative) U Hyaline Cast (Auto) (0-2) /LPF Urine Microscopic RBC (0-5) /HPF Urine Microscopic WBC (0-5) /HPF Ur Epithelial Cells (None Seen) /HPF Urine Bacteria (None Seen) /HPF Urine Culture Reflexed (NO) Influenza Type A Ag NEGATIVE (NEGATIVE) Influenza Type B Ag NEGATIVE (NEGATIVE) RSV (PCR) NEGATIVE (NEGATIVE) SARS-CoV-2 (PCR) NEGATIVE (NEGATIVE) 03/16/23 03/17/23 03/17/23 Range/Units 23:15 00:00 00:45 WBC (4.0-10.5) x10^3/uL RBC (4.1-5.4) x10^6/uL Hgb (12.0-16.0) g/dL Hct (35-47) % MCV (78-100) fL MCH (26-32) pg MCHC (32-36) g/dL RDW (11.5-14.0) % Plt Count (150-450) x10^3/uL MPV (7.5-11.0) fL Gran % (36.0-66.0) % Immature Gran % (Auto) (0.00-0.4) % Nucleat RBC Rel Count (0.00-0.1) % Eos # (Auto) (0-0.5) x10^3/uL Immature Gran # (Auto) (0.00-0.03) x10^3u/L Absolute Lymphs (auto) (1.0-4.6) x10^3/uL Absolute Monos (auto) (0.0-1.3) x10^3/uL Absolute Nucleated RBC (0.00-0.01) x10^3u/L Lymphocytes % (24.0-44.0) % Monocytes % (0.0-12.0) % Eosinophils % (0.00-5.0) % Basophils % (0.0-0.4) % Absolute Granulocytes (1.4-6.9) x10^3/uL Basophils # (0-0.4) x10^3/uL D-Dimer 1.59 H* (0.0-0.50) mg/L Sodium (137-145) mmol/L Potassium (3.5-5.1) mmol/L Chloride (98-107) mmol/L Carbon Dioxide (22-30) mmol/L Anion Gap (5-15) MEQ/L BUN (7-17) mg/dL Creatinine (0.52-1.04) mg/dL Estimated GFR ML/MIN Glucose (74-106) mg/dL Lactic Acid (0.4-2.0) Calcium (8.4-10.2) mg/dL Total Bilirubin (0.2-1.3) mg/dL AST (14-36) U/L ALT (0-35) U/L Alkaline Phosphatase (38-126) U/L Troponin I < 0.012 (0.000-0.034) ng/mL NT-Pro-B Natriuret Pep (<300) pg/mL Serum Total Protein (6.3-8.2) g/dL Albumin (3.5-5.0) g/dL Lipase (23-300) U/L TSH 3rd Generation 1.440 (0.47-4.68) mIU/L Urine Color (Yellow) Urine Appearance (Clear) Urine pH (4.6-8.0) Ur Specific [place] (1.005-1.030) Urine Protein (Negative) Urine Glucose (UA) (Negative) mg/dL Urine Ketones (Negative) Urine Blood (Negative) Urine Nitrite (Negative) Urine Bilirubin (Negative) Urine Urobilinogen (0.2) mg/dL Ur Leukocyte Esterase (Negative) U Hyaline Cast (Auto) (0-2) /LPF Urine Microscopic RBC (0-5) /HPF Urine Microscopic WBC (0-5) /HPF Ur Epithelial Cells (None Seen) /HPF Urine Bacteria (None Seen) /HPF Urine Culture Reflexed (NO) Influenza Type A Ag (NEGATIVE) Influenza Type B Ag (NEGATIVE) RSV (PCR) (NEGATIVE) SARS-CoV-2 (PCR) (NEGATIVE) 03/17/23 03/17/23 03/17/23 Range/Units 01:39 04:18 04:18 WBC 15.8 H (4.0-10.5) x10^3/uL RBC 4.75 (4.1-5.4) x10^6/uL Hgb 15.0 (12.0-16.0) g/dL Hct 44.1 (35-47) % MCV 92.8 (78-100) fL MCH 31.6 (26-32) pg MCHC 34.0 (32-36) g/dL RDW 14.2 H (11.5-14.0) % Plt Count 224 (150-450) x10^3/uL MPV 11.0 (7.5-11.0) fL Gran % (36.0-66.0) % Immature Gran % (Auto) (0.00-0.4) % Nucleat RBC Rel Count (0.00-0.1) % Eos # (Auto) (0-0.5) x10^3/uL Immature Gran # (Auto) (0.00-0.03) x10^3u/L Absolute Lymphs (auto) (1.0-4.6) x10^3/uL Absolute Monos (auto) (0.0-1.3) x10^3/uL Absolute Nucleated RBC (0.00-0.01) x10^3u/L Lymphocytes % (24.0-44.0) % Monocytes % (0.0-12.0) % Eosinophils % (0.00-5.0) % Basophils % (0.0-0.4) % Absolute Granulocytes (1.4-6.9) x10^3/uL Basophils # (0-0.4) x10^3/uL D-Dimer (0.0-0.50) mg/L Sodium (137-145) mmol/L Potassium (3.5-5.1) mmol/L Chloride (98-107) mmol/L Carbon Dioxide (22-30) mmol/L Anion Gap (5-15) MEQ/L BUN (7-17) mg/dL Creatinine (0.52-1.04) mg/dL Estimated GFR ML/MIN Glucose (74-106) mg/dL Lactic Acid (0.4-2.0) Calcium (8.4-10.2) mg/dL Total Bilirubin (0.2-1.3) mg/dL AST (14-36) U/L ALT (0-35) U/L Alkaline Phosphatase (38-126) U/L Troponin I < 0.012 (0.000-0.034) ng/mL NT-Pro-B Natriuret Pep (<300) pg/mL Serum Total Protein (6.3-8.2) g/dL Albumin (3.5-5.0) g/dL Lipase (23-300) U/L TSH 3rd Generation (0.47-4.68) mIU/L Urine Color Yellow (Yellow) Urine Appearance Clear (Clear) Urine pH 6.0 (4.6-8.0) Ur Specific [place] >=1.030 A (1.005-1.030) Urine Protein 30 (Negative) Urine Glucose (UA) Negative (Negative) mg/dL Urine Ketones Trace A (Negative) Urine Blood NHT (Negative) Urine Nitrite Negative (Negative) Urine Bilirubin Negative (Negative) Urine Urobilinogen 0.2 (0.2) mg/dL Ur Leukocyte Esterase Negative (Negative) U Hyaline Cast (Auto) 3-5 A (0-2) /LPF Urine Microscopic RBC 6-10 A (0-5) /HPF Urine Microscopic WBC 0-2 (0-5) /HPF Ur Epithelial Cells None Seen (None Seen) /HPF Urine Bacteria None Seen (None Seen) /HPF Urine Culture Reflexed NO (NO) Influenza Type A Ag (NEGATIVE) Influenza Type B Ag (NEGATIVE) RSV (PCR) (NEGATIVE) SARS-CoV-2 (PCR) (NEGATIVE) 03/17/23 Range/Units 04:18 WBC (4.0-10.5) x10^3/uL RBC (4.1-5.4) x10^6/uL Hgb (12.0-16.0) g/dL Hct (35-47) % MCV (78-100) fL MCH (26-32) pg MCHC (32-36) g/dL RDW (11.5-14.0) % Plt Count (150-450) x10^3/uL MPV (7.5-11.0) fL Gran % (36.0-66.0) % Immature Gran % (Auto) (0.00-0.4) % Nucleat RBC Rel Count (0.00-0.1) % Eos # (Auto) (0-0.5) x10^3/uL Immature Gran # (Auto) (0.00-0.03) x10^3u/L Absolute Lymphs (auto) (1.0-4.6) x10^3/uL Absolute Monos (auto) (0.0-1.3) x10^3/uL Absolute Nucleated RBC (0.00-0.01) x10^3u/L Lymphocytes % (24.0-44.0) % Monocytes % (0.0-12.0) % Eosinophils % (0.00-5.0) % Basophils % (0.0-0.4) % Absolute Granulocytes (1.4-6.9) x10^3/uL Basophils # (0-0.4) x10^3/uL D-Dimer (0.0-0.50) mg/L Sodium 130 L (137-145) mmol/L Potassium 3.8 (3.5-5.1) mmol/L Chloride 98 (98-107) mmol/L Carbon Dioxide 23 (22-30) mmol/L Anion Gap 12.8 (5-15) MEQ/L BUN 14 (7-17) mg/dL Creatinine 0.62 (0.52-1.04) mg/dL Estimated GFR > 60.0 ML/MIN Glucose 145 H (74-106) mg/dL Lactic Acid (0.4-2.0) Calcium 8.1 L D (8.4-10.2) mg/dL Total Bilirubin 0.50 (0.2-1.3) mg/dL AST 23 (14-36) U/L ALT 17 (0-35) U/L Alkaline Phosphatase 54 (38-126) U/L Troponin I (0.000-0.034) ng/mL NT-Pro-B Natriuret Pep (<300) pg/mL Serum Total Protein 6.8 (6.3-8.2) g/dL Albumin 3.8 (3.5-5.0) g/dL Lipase (23-300) U/L TSH 3rd Generation (0.47-4.68) mIU/L Urine Color (Yellow) Urine Appearance (Clear) Urine pH (4.6-8.0) Ur Specific [place] (1.005-1.030) Urine Protein (Negative) Urine Glucose (UA) (Negative) mg/dL Urine Ketones (Negative) Urine Blood (Negative) Urine Nitrite (Negative) Urine Bilirubin (Negative) Urine Urobilinogen (0.2) mg/dL Ur Leukocyte Esterase (Negative) U Hyaline Cast (Auto) (0-2) /LPF Urine Microscopic RBC (0-5) /HPF Urine Microscopic WBC (0-5) /HPF Ur Epithelial Cells (None Seen) /HPF Urine Bacteria (None Seen) /HPF Urine Culture Reflexed (NO) Influenza Type A Ag (NEGATIVE) Influenza Type B Ag (NEGATIVE) RSV (PCR) (NEGATIVE) SARS-CoV-2 (PCR) (NEGATIVE) Radiology Exams: Radiology Procedures Category Date Time Status ABDOMEN AND PELVIS W CONTRAST [CT] Stat Exams 03/16/23 23:41 Completed CHEST 1 VIEW (PORTABLE) Stat Exams 03/16/23 22:19 Completed CHEST WITH CONTRAST [CT] Stat Exams 03/16/23 23:37 Completed Assessment/Plan (1) COPD (chronic obstructive pulmonary disease) Current Visit: Yes Status: Chronic Qualifiers: COPD type: COPD with acute exacerbation Qualified Code(s): J44.1 - Chronic obstructive pulmonary disease with (acute) exacerbation Assessment & Plan: -CT chest reviewed showing mild subpleural para septal emphysematous lung changes, stable since previous study with mild bibasal atelectatic lung changes, new since previous study. No acute cardiopulmonary abnormality is seen. 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
[2023-03-17] MEDS ORDERED: [UNRECOGNIZED DRUG - OTHER] IH SCH (14:15)
[2023-03-17 14:23] LABS: 027 TOX PROD PRESUMPTIVE NEGATIVE (NEGATIVE); TOXIGENIC C. DIFF ORG NEGATIVE (NEGATIVE)
[2023-03-17] MEDS: Zestril 5 MG PO SCH (14:46)
[2023-03-17 15:29] LABS: ANION GAP 16.9 MEQ/L (5-15); BLOOD UREA NITROGEN 14 mg/dL (7-17); CHLORIDE 99 mmol/L (98-107); Calcium 8.3 mg/dL (8.4-10.2); Carbon Dioxide 18 mmol/L (22-30); Cholesterol 181 mg/dL (50-200); Creatinine 1 0.63 mg/dL (0.52-1.04); EST GLOMERULAR FILTRATION RATE > 60.0 ML/MIN; Glucose 142 mg/dL (74-106); HDL CHOLESTEROL 43 mg/dL (40-60); LDL, DIRECT 106 mg/dL (30-100); Risk Ratio 4.2; SODIUM 130 mmol/L (137-145); TRIGLYCERIDE 81 mg/dL (30-150)
[2023-03-17 17:45] LABS: ANION GAP 14.1 MEQ/L (5-15); BLOOD UREA NITROGEN 13 mg/dL (7-17); CHLORIDE 101 mmol/L (98-107); Calcium 8.3 mg/dL (8.4-10.2); Carbon Dioxide 22 mmol/L (22-30); Creatinine 1 0.54 mg/dL (0.52-1.04); EST GLOMERULAR FILTRATION RATE > 60.0 ML/MIN; Glucose 208 mg/dL (74-106); Potassium 3.6 mmol/L (3.5-5.1); SODIUM 134 mmol/L (137-145)
[2023-03-17 21:48] LABS: BLOOD UREA NITROGEN 17 mg/dL (7-17); CHLORIDE 101 mmol/L (98-107); Calcium 8.5 mg/dL (8.4-10.2); Carbon Dioxide 21 mmol/L (22-30); Creatinine 1 0.58 mg/dL (0.52-1.04); EST GLOMERULAR FILTRATION RATE > 60.0 ML/MIN; Glucose 235 mg/dL (74-106); Potassium 3.3 mmol/L (3.5-5.1); SODIUM 135 mmol/L (137-145)
[2023-03-17] MEDS: NORVASC 5 MG PO SCH (22:04)
[2023-03-18 01:54] LABS: ANION GAP 12.9 MEQ/L (5-15); BLOOD UREA NITROGEN 16 mg/dL (7-17); CHLORIDE 103 mmol/L (98-107); Calcium 8.3 mg/dL (8.4-10.2); Carbon Dioxide 23 mmol/L (22-30); Creatinine 1 0.52 mg/dL (0.52-1.04); EST GLOMERULAR FILTRATION RATE > 60.0 ML/MIN; Glucose 151 mg/dL (74-106); Potassium 3.5 mmol/L (3.5-5.1); SODIUM 136 mmol/L (137-145)
[2023-03-18] MEDS: Sodium Chloride 0.9% 1000 ML 1,000 ML IV SCH ×2 (02:43→05:49)
[2023-03-18 04:33] LABS: ANION GAP 12.2 MEQ/L (5-15); BLOOD UREA NITROGEN 15 mg/dL (7-17); CHLORIDE 104 mmol/L (98-107); Calcium 8.1 mg/dL (8.4-10.2); Carbon Dioxide 23 mmol/L (22-30); EST GLOMERULAR FILTRATION RATE > 60.0 ML/MIN; Glucose 139 mg/dL (74-106); Potassium 3.4 mmol/L (3.5-5.1); SODIUM 136 mmol/L (137-145)
--- NOTE | 2023-03-18 05:27 | PCM.NOTE ---
Date and Time: 03/18/23 0524 OBJECTIVE DATA Vital Signs: Vital Signs - 24 hr Temp Pulse Resp BP Pulse Ox 03/18/23 04:00 97.5 F 72 18 119/63 94 L 03/18/23 00:00 97.8 F 80 18 133/78 97 03/17/23 20:00 97.8 F 88 18 130/67 98 03/17/23 18:39 92 H 97 03/17/23 16:00 97.1 F 84 18 122/60 92 L 03/17/23 11:40 94 L 03/17/23 11:26 97.2 F 88 16 155/55 94 L 03/17/23 10:39 83 20 96 03/17/23 07:12 97.1 F 80 17 117/55 94 L 03/17/23 06:43 84 18 94 L Pain Assessment - Last Documented Pain Intensity 0 Intake and Output: Intake & Output 03/15/23 03/16/23 03/17/23 03/18/23 11:59 11:59 11:59 11:59 Intake Total 100 340 Balance 100 340 Weight 87.4 kg Lab Results: Lab Results-Last 24 Hours 03/17/23 03/17/23 03/17/23 Range/Units 04:18 04:25 13:30 Sodium 130 L (137-145) mmol/L Potassium 4.0 (3.5-5.1) mmol/L Chloride 99 (98-107) mmol/L Carbon Dioxide 18 L (22-30) mmol/L Anion Gap 16.9 H (5-15) MEQ/L BUN 14 (7-17) mg/dL Creatinine 0.63 (0.52-1.04) mg/dL Estimated GFR > 60.0 ML/MIN Glucose 142 H (74-106) mg/dL Calcium 8.3 L (8.4-10.2) mg/dL Troponin I < 0.012 (0.000-0.034) ng/mL Triglycerides 81 (30-150) mg/dL Cholesterol 181 (50-200) mg/dL LDL Cholesterol 106 H (30-100) mg/dL HDL Cholesterol 43 (40-60) mg/dL Heart Disease Risk Ratio 4.2 Urine Sodium (30-90) mmol/L C. difficile Screen NEGATIVE (NEGATIVE) C.difficile [id number] PRESUMPTIVE NEGATIVE (NEGATIVE) 03/17/23 03/17/23 03/17/23 Range/Units 14:40 17:28 21:30 Sodium 134 L 135 L (137-145) mmol/L Potassium 3.6 3.3 L (3.5-5.1) mmol/L Chloride 101 101 (98-107) mmol/L Carbon Dioxide 22 21 L (22-30) mmol/L Anion Gap 14.1 16.0 H (5-15) MEQ/L BUN 13 17 (7-17) mg/dL Creatinine 0.54 0.58 (0.52-1.04) mg/dL Estimated GFR > 60.0 > 60.0 ML/MIN Glucose 208 H 235 H (74-106) mg/dL Calcium 8.3 L 8.5 (8.4-10.2) mg/dL Troponin I (0.000-0.034) ng/mL Triglycerides (30-150) mg/dL Cholesterol (50-200) mg/dL LDL Cholesterol (30-100) mg/dL HDL Cholesterol (40-60) mg/dL Heart Disease Risk Ratio Urine Sodium 150 H (30-90) mmol/L C. difficile Screen (NEGATIVE) C.difficile [id number] (NEGATIVE) 03/18/23 03/18/23 Range/Units 01:42 04:14 Sodium 136 L 136 L (137-145) mmol/L Potassium 3.5 3.4 L (3.5-5.1) mmol/L Chloride 103 104 (98-107) mmol/L Carbon Dioxide 23 23 (22-30) mmol/L Anion Gap 12.9 12.2 (5-15) MEQ/L BUN 16 15 (7-17) mg/dL Creatinine 0.52 0.50 L (0.52-1.04) mg/dL Estimated GFR > 60.0 > 60.0 ML/MIN Glucose 151 H 139 H (74-106) mg/dL Calcium 8.3 L 8.1 L (8.4-10.2) mg/dL Troponin I (0.000-0.034) ng/mL Triglycerides (30-150) mg/dL Cholesterol (50-200) mg/dL LDL Cholesterol (30-100) mg/dL HDL Cholesterol (40-60) mg/dL Heart Disease Risk Ratio Urine Sodium (30-90) mmol/L C. difficile Screen (NEGATIVE) C.difficile [id number] (NEGATIVE) Radiology Exams: Radiology Procedures Category Date Time Status ABDOMEN AND PELVIS W CONTRAST [CT] Stat Exams 03/16/23 23:41 Completed CHEST 1 VIEW (PORTABLE) Stat Exams 03/16/23 22:19 Completed CHEST WITH CONTRAST [CT] Stat Exams 03/16/23 23:37 Completed Assessment/Plan (1) Nausea vomiting and diarrhea Current Visit: Yes Status: Acute Code(s): R11.2 - NAUSEA WITH VOMITING, UNSPECIFIED; R19.7 - DIARRHEA, UNSPECIFIED (2) Leukocytosis Current Visit: Yes Status: Acute Code(s): D72.829 - ELEVATED WHITE BLOOD CELL COUNT, UNSPECIFIED (3) Hyponatremia Current Visit: Yes Status: Acute Code(s): E87.1 - HYPO-OSMOLALITY AND HYPONATREMIA (4) Generalized weakness Current Visit: Yes Status: Acute Code(s): R53.1 - WEAKNESS (5) Hypertension Current Visit: No Status: Chronic Code(s): I10 - ESSENTIAL (PRIMARY) HYPERTENSION (6) COPD (chronic obstructive pulmonary disease) Current Visit: Yes Status: Chronic Qualifiers: COPD type: COPD with acute exacerbation Qualified Code(s): J44.1 - Chronic obstructive pulmonary disease with (acute) exacerbation (7) Calcified granuloma of lung Current Visit: Yes Status: Chronic Code(s): J84.10 - PULMONARY FIBROSIS, UNSPECIFIED Telemedicine Encounter - Telemedicine Encounter Telemedicine Encounter: The entirety of this encounter was performed via Telemedicine"
[2023-03-18 05:47] LABS: Absolute Neutrophil Ct (ANC) 17.84 x10^3/uL (1.4-6.9); BASOPHIL % 0.1 % (0.0-0.4); Basophil (Absolute #) 0.02 x10^3/uL (0-0.4); Eosinophil (Absolute #) 0 x10^3/uL (0-0.5); Hematocrit 42.5 % (35-47); Hemoglobin 13.7 g/dL (12.0-16.0); IMMATURE GRAN # 0.07 x10^3u/L (0.00-0.03); IMMATURE GRAN % 0.4 % (0.00-0.4); Lymphocyte (Absolute #) 0.62 x10^3/uL (1.0-4.6); Lymphocytes % 3.1 % (24.0-44.0); Mean Cell Volume 96.6 fL (78-100); Mean Corpuscular Hemoglobin 31.1 pg (26-32); Mean Corpuscular Hgb Concent. 32.2 g/dL (32-36); Mean Platelet Volume 11.6 fL (7.5-11.0); Monocyte (Absolute #) 1.18 x10^3/uL (0.0-1.3); Neutrophil % 90.4 % (36.0-66.0); Platelet Count 226 x10^3/uL (150-450); Red Cell Distribution Width 13.9 % (11.5-14.0); White Blood Count 19.7 x10^3/uL (4.0-10.5)
[2023-03-18] MEDS: Klor Con PO SCH (08:59)
[2023-03-18] MEDS: Zestril 5 MG PO SCH (08:59)
--- NOTE | 2023-03-18 10:37 | PCM.DS ---
Discharge Summary Date of Admission: 03/17/23 02:24 Date of Discharge: 03/18/2023 Admitting Physician: BETY GARCIA MD Primary Care Provider: ELIZABETH BELLO <MARCO A JACOBS - Last Filed: 03/18/23 10:57> Date of Admission: 03/17/23 02:24 Admitting Physician: BETY GARCIA MD Primary Care Provider: ELIZABETH BELLO <JEREMY MCCLAIN - Last Filed: 03/18/23 14:04> Allergies <MARCO A JACOBS - Last Filed: 03/18/23 10:57> <CHARLEYINJEREMY - Last Filed: 03/18/23 14:04> Allergies moxifloxacin HCl [From Avelox] Allergy (Severe, Verified 03/17/23 03:29) Hives oseltamivir [From Tamiflu] Allergy (Severe, Verified 03/16/23 19:34) Swelling of Face Sulfa (Sulfonamide Antibiotics) Allergy (Mild, Verified 03/17/23 03:30) Hives codeine Allergy (Verified 03/17/23 03:30) Hives Penicillins Allergy (Verified 03/17/23 03:30) [facility] Hospital Summary - Hospital Course Hospital Course: Ms. Bhatia is a 77-year-old female with a pmhx of COPD and hypertension admitted under observation 03/17/23 for nausea, vomiting, diarrhea, hyponatremia, and leukocytosis after presenting to the ED with complaints of nausea vomiting and diarrhea with onset 03/16/23. Upon arrival to ED the patient was observed to be dehydrated with noted dry oral mucous membranes. Patient had a resting tachycardia, with EKG findings consistent with sinus tachycardia, likely due to hypovolemia. Additionally while in ED patient developed hypoxia with oxygen saturation dipping into the 80's and was placed on 3 L nasal cannula, RA at baseline. D-dimer was ordered, resulted as positive and subsequently a CTA was ordered, which was negative for PE. Chronic findings were observed on the CTA including emphysema. Patient does have a history of COPD. ER work-up also in cluded CBC, CMP, troponin, UA, TSH, lactic acid, COVID test, lipase, and blood culture. CBC revealed a leukocytosis with a WBC of 18,000. Patient was also mildly hyponatremic with sodium levels at 130 on admission secondary to hypovolemia. COVID test negative as well as Flu A/B/RSV. TSH ordered as patient had a baseline tachycardia and resulted as normal. Lactic acid within normal range as well. Blood cultures prelim is negative. Urinalysis negative for infection. CT abdomen pelvis revealed a inflamed distal ileum cecum and proximal ascending colon. This inflamed bowel likely contributed to the leukocytosis as well. Unclear whether the inflamed bowel is secondary to an infectious versus inflammatory etiology. CDIff negative. During hospital course, patient received IV hydration correcting her sodium levels. Overnight nausea and vomiting resolved. She is now able to tolerate a regular diet, is at her baseline RA, and vitals remain stable. Her WBC remains elevated, which is most likely reactive to the solu-medrol, nausea, and vomiting rather than a bacterial etiology. Patient will discharge home today with advisement to follow up with Dr. Bello in one week. I have spent > 45 minutes planning and coordinating safe discharge of this patient. - Vitals & Intake/Output Vital Signs: Vital Signs Temperature 96.8 F 03/18/23 07:43 Pulse Rate 87 03/18/23 07:43 Respiratory Rate 12 03/18/23 07:43 Blood Pressure 108/51 03/18/23 07:43 O2 Sat by Pulse Oximetry 92 L 03/18/23 07:43 Intake & Output: Intake & Output 03/15/23 03/16/23 03/17/23 03/18/23 11:59 11:59 11:59 11:59 Intake Total 100 1420 Balance 100 1420 Weight 87.4 kg - Lab Result Diagrams: 03/18/23 04:14 03/18/23 04:14 Lab Results-Last 24 Hrs: Lab Results-Last 24 Hours 03/17/23 03/17/23 03/17/23 Range/Units 04:25 13:30 14:40 WBC (4.0-10.5) x10^3/uL RBC (4.1-5.4) x10^6/uL Hgb (12.0-16.0) g/dL Hct (35-47) % MCV (78-100) fL MCH (26-32) pg MCHC (32-36) g/dL RDW (11.5-14.0) % Plt Count (150-450) x10^3/uL MPV (7.5-11.0) fL Gran % (36.0-66.0) % Immature Gran % (Auto) (0.00-0.4) % Nucleat RBC Rel Count (0.00-0.1) % Eos # (Auto) (0-0.5) x10^3/uL Immature Gran # (Auto) (0.00-0.03) x10^3u/L Absolute Lymphs (auto) (1.0-4.6) x10^3/uL Absolute Monos (auto) (0.0-1.3) x10^3/uL Absolute Nucleated RBC (0.00-0.01) x10^3u/L Lymphocytes % (24.0-44.0) % Monocytes % (0.0-12.0) % Eosinophils % (0.00-5.0) % Basophils % (0.0-0.4) % Absolute Granulocytes (1.4-6.9) x10^3/uL Basophils # (0-0.4) x10^3/uL Sodium 130 L (137-145) mmol/L Potassium 4.0 (3.5-5.1) mmol/L Chloride 99 (98-107) mmol/L Carbon Dioxide 18 L (22-30) mmol/L Anion Gap 16.9 H (5-15) MEQ/L BUN 14 (7-17) mg/dL Creatinine 0.63 (0.52-1.04) mg/dL Estimated GFR > 60.0 ML/MIN Glucose 142 H (74-106) mg/dL Calcium 8.3 L (8.4-10.2) mg/dL Triglycerides 81 (30-150) mg/dL Cholesterol 181 (50-200) mg/dL LDL Cholesterol 106 H (30-100) mg/dL HDL Cholesterol 43 (40-60) mg/dL Heart Disease Risk Ratio 4.2 Urine Sodium 150 H (30-90) mmol/L C. difficile Screen NEGATIVE (NEGATIVE) C.difficile 027-NAP1-B1 PRESUMPTIVE NEGATIVE (NEGATIVE) 03/17/23 03/17/23 03/18/23 Range/Units 17:28 21:30 01:42 WBC (4.0-10.5) x10^3/uL RBC (4.1-5.4) x10^6/uL Hgb (12.0-16.0) g/dL Hct (35-47) % MCV (78-100) fL MCH (26-32) pg MCHC (32-36) g/dL RDW (11.5-14.0) % Plt Count (150-450) x10^3/uL MPV (7.5-11.0) fL Gran % (36.0-66.0) % Immature Gran % (Auto) (0.00-0.4) % Nucleat RBC Rel Count (0.00-0.1) % Eos # (Auto) (0-0.5) x10^3/uL Immature Gran # (Auto) (0.00-0.03) x10^3u/L Absolute Lymphs (auto) (1.0-4.6) x10^3/uL Absolute Monos (auto) (0.0-1.3) x10^3/uL Absolute Nucleated RBC (0.00-0.01) x10^3u/L Lymphocytes % (24.0-44.0) % Monocytes % (0.0-12.0) % Eosinophils % (0.00-5.0) % Basophils % (0.0-0.4) % Absolute Granulocytes (1.4-6.9) x10^3/uL Basophils # (0-0.4) x10^3/uL Sodium 134 L 135 L 136 L (137-145) mmol/L Potassium 3.6 3.3 L 3.5 (3.5-5.1) mmol/L Chloride 101 101 103 (98-107) mmol/L Carbon Dioxide 22 21 L 23 (22-30) mmol/L Anion Gap 14.1 16.0 H 12.9 (5-15) MEQ/L BUN 13 17 16 (7-17) mg/dL Creatinine 0.54 0.58 0.52 (0.52-1.04) mg/dL Estimated GFR > 60.0 > 60.0 > 60.0 ML/MIN Glucose 208 H 235 H 151 H (74-106) mg/dL Calcium 8.3 L 8.5 8.3 L (8.4-10.2) mg/dL Triglycerides (30-150) mg/dL Cholesterol (50-200) mg/dL LDL Cholesterol (30-100) mg/dL HDL Cholesterol (40-60) mg/dL Heart Disease Risk Ratio Urine Sodium (30-90) mmol/L C. difficile Screen (NEGATIVE) C.difficile 027-NAP1-B1 (NEGATIVE) 03/18/23 03/18/23 Range/Units 04:14 04:14 WBC 19.7 H (4.0-10.5) x10^3/uL RBC 4.40 (4.1-5.4) x10^6/uL Hgb 13.7 (12.0-16.0) g/dL Hct 42.5 (35-47) % MCV 96.6 (78-100) fL MCH 31.1 (26-32) pg MCHC 32.2 (32-36) g/dL RDW 13.9 (11.5-14.0) % Plt Count 226 (150-450) x10^3/uL MPV 11.6 H (7.5-11.0) fL Gran % 90.4 H (36.0-66.0) % Immature Gran % (Auto) 0.4 (0.00-0.4) % Nucleat RBC Rel Count 0.0 (0.00-0.1) % Eos # (Auto) 0 (0-0.5) x10^3/uL Immature Gran # (Auto) 0.07 H (0.00-0.03) x10^3u/L Absolute Lymphs (auto) 0.62 L (1.0-4.6) x10^3/uL Absolute Monos (auto) 1.18 (0.0-1.3) x10^3/uL Absolute Nucleated RBC 0.00 (0.00-0.01) x10^3u/L Lymphocytes % 3.1 L (24.0-44.0) % Monocytes % 6.0 (0.0-12.0) % Eosinophils % 0.0 (0.00-5.0) % Basophils % 0.1 (0.0-0.4) % Absolute Granulocytes 17.84 H (1.4-6.9) x10^3/uL Basophils # 0.02 (0-0.4) x10^3/uL Sodium 136 L (137-145) mmol/L Potassium 3.4 L (3.5-5.1) mmol/L Chloride 104 (98-107) mmol/L Carbon Dioxide 23 (22-30) mmol/L Anion Gap 12.2 (5-15) MEQ/L BUN 15 (7-17) mg/dL Creatinine 0.50 L (0.52-1.04) mg/dL Estimated GFR > 60.0 ML/MIN Glucose 139 H (74-106) mg/dL Calcium 8.1 L (8.4-10.2) mg/dL Triglycerides (30-150) mg/dL Cholesterol (50-200) mg/dL LDL Cholesterol (30-100) mg/dL HDL Cholesterol (40-60) mg/dL Heart Disease Risk Ratio Urine Sodium (30-90) mmol/L C. difficile Screen (NEGATIVE) C.difficile 027-NAP1-B1 (NEGATIVE) Micro Results-Entire Visit: Microbiology 03/16/23 20:00 Blood Culture - Preliminary Blood 03/16/23 23:15 Blood Culture - Preliminary Blood - Radiology Exams Ordered Rad Exams-Entire Visit: Radiology Procedures Category Date Time Status ABDOMEN AND PELVIS W CONTRAST [CT] Stat Exams 03/16/23 23:41 Completed CHEST 1 VIEW (PORTABLE) Stat Exams 03/16/23 22:19 Completed CHEST WITH CONTRAST [CT] Stat Exams 03/16/23 23:37 Completed - Procedures and Test Procedures and Tests throughout Hospitalization: Therapy Orders & Screens 03/16/23 22:54 Respiratory Therapy Assessment DAILY Comment: 03/17/23 04:16 Oxygen Nasal Cannula 3 lpm Comment: Diagnosis: Nausea vomiting diarrhea, dehydration, COPD exacerbation, hypoxia 03/17/23 04:28 Respiratory MDI BID Comment: Diagnosis: Nausea vomiting diarrhea, dehydration, COPD exacerbation, hypoxia 03/17/23 10:40 RT Screen per Nursing Assess ONCE Comment: Protocol Order Physician Instructions: Greater than 3 points order RT Admission Screen Reason For Exam: Triggered on Admission Diagnosis: Nausea vomiting diarrhea, dehydration, COPD exacerbation, hypoxia Diagnosis: Nausea vomiting diarrhea, dehydration, COPD exacerbation, hypoxia Pneumonia: No Home O2: No Asthma: No CHF: Yes Home CPAP/BIPAP: No Home Nebs/MDI: Yes Total Points: 8 <MARCO A JACOBS - Last Filed: 03/18/23 10:57> - Vitals & Intake/Output Vital Signs: Vital Signs Temperature 97.7 F 03/18/23 11:27 Pulse Rate 71 03/18/23 11:27 Respiratory Rate 16 03/18/23 11:27 Blood Pressure 129/60 03/18/23 11:27 O2 Sat by Pulse Oximetry 95 03/18/23 11:27 Intake & Output: Intake & Output 03/16/23 03/17/23 03/18/23 03/19/23 11:59 11:59 11:59 11:59 Intake Total 100 1420 Balance 100 1420 Weight 87.4 kg 87 kg - Lab Result Diagrams: 03/18/23 04:14 03/18/23 04:14 Lab Results-Last 24 Hrs: Lab Results-Last 24 Hours 03/17/23 03/17/23 03/17/23 Range/Units 04:25 13:30 14:40 WBC (4.0-10.5) x10^3/uL RBC (4.1-5.4) x10^6/uL Hgb (12.0-16.0) g/dL Hct (35-47) % MCV (78-100) fL MCH (26-32) pg MCHC (32-36) g/dL RDW (11.5-14.0) % Plt Count (150-450) x10^3/uL MPV (7.5-11.0) fL Gran % (36.0-66.0) % Immature Gran % (Auto) (0.00-0.4) % Nucleat RBC Rel Count (0.00-0.1) % Eos # (Auto) (0-0.5) x10^3/uL Immature Gran # (Auto) (0.00-0.03) x10^3u/L Absolute Lymphs (auto) (1.0-4.6) x10^3/uL Absolute Monos (auto) (0.0-1.3) x10^3/uL Absolute Nucleated RBC (0.00-0.01) x10^3u/L Lymphocytes % (24.0-44.0) % Monocytes % (0.0-12.0) % Eosinophils % (0.00-5.0) % Basophils % (0.0-0.4) % Absolute Granulocytes (1.4-6.9) x10^3/uL Basophils # (0-0.4) x10^3/uL Sodium 130 L (137-145) mmol/L Potassium 4.0 (3.5-5.1) mmol/L Chloride 99 (98-107) mmol/L Carbon Dioxide 18 L (22-30) mmol/L Anion Gap 16.9 H (5-15) MEQ/L BUN 14 (7-17) mg/dL Creatinine 0.63 (0.52-1.04) mg/dL Estimated GFR > 60.0 ML/MIN Glucose 142 H (74-106) mg/dL Calcium 8.3 L (8.4-10.2) mg/dL Triglycerides 81 (30-150) mg/dL Cholesterol 181 (50-200) mg/dL LDL Cholesterol 106 H (30-100) mg/dL HDL Cholesterol 43 (40-60) mg/dL Heart Disease Risk Ratio 4.2 Urine Sodium 150 H (30-90) mmol/L C. difficile Screen NEGATIVE (NEGATIVE) C.difficile 027-NAP1-B1 PRESUMPTIVE NEGATIVE (NEGATIVE) 03/17/23 03/17/23 03/18/23 Range/Units 17:28 21:30 01:42 WBC (4.0-10.5) x10^3/uL RBC (4.1-5.4) x10^6/uL Hgb (12.0-16.0) g/dL Hct (35-47) % MCV (78-100) fL MCH (26-32) pg MCHC (32-36) g/dL RDW (11.5-14.0) % Plt Count (150-450) x10^3/uL MPV (7.5-11.0) fL Gran % (36.0-66.0) % Immature Gran % (Auto) (0.00-0.4) % Nucleat RBC Rel Count (0.00-0.1) % Eos # (Auto) (0-0.5) x10^3/uL Immature Gran # (Auto) (0.00-0.03) x10^3u/L Absolute Lymphs (auto) (1.0-4.6) x10^3/uL Absolute Monos (auto) (0.0-1.3) x10^3/uL Absolute Nucleated RBC (0.00-0.01) x10^3u/L Lymphocytes % (24.0-44.0) % Monocytes % (0.0-12.0) % Eosinophils % (0.00-5.0) % Basophils % (0.0-0.4) % Absolute Granulocytes (1.4-6.9) x10^3/uL Basophils # (0-0.4) x10^3/uL Sodium 134 L 135 L 136 L (137-145) mmol/L Potassium 3.6 3.3 L 3.5 (3.5-5.1) mmol/L Chloride 101 101 103 (98-107) mmol/L Carbon Dioxide 22 21 L 23 (22-30) mmol/L Anion Gap 14.1 16.0 H 12.9 (5-15) MEQ/L BUN 13 17 16 (7-17) mg/dL Creatinine 0.54 0.58 0.52 (0.52-1.04) mg/dL Estimated GFR > 60.0 > 60.0 > 60.0 ML/MIN Glucose 208 H 235 H 151 H (74-106) mg/dL Calcium 8.3 L 8.5 8.3 L (8.4-10.2) mg/dL Triglycerides (30-150) mg/dL Cholesterol (50-200) mg/dL LDL Cholesterol (30-100) mg/dL HDL Cholesterol (40-60) mg/dL Heart Disease Risk Ratio Urine Sodium (30-90) mmol/L C. difficile Screen (NEGATIVE) C.difficile 027-NAP1-B1 (NEGATIVE) 03/18/23 03/18/23 Range/Units 04:14 04:14 WBC 19.7 H (4.0-10.5) x10^3/uL RBC 4.40 (4.1-5.4) x10^6/uL Hgb 13.7 (12.0-16.0) g/dL Hct 42.5 (35-47) % MCV 96.6 (78-100) fL MCH 31.1 (26-32) pg MCHC 32.2 (32-36) g/dL RDW 13.9 (11.5-14.0) % Plt Count 226 (150-450) x10^3/uL MPV 11.6 H (7.5-11.0) fL Gran % 90.4 H (36.0-66.0) % Immature Gran % (Auto) 0.4 (0.00-0.4) % Nucleat RBC Rel Count 0.0 (0.00-0.1) % Eos # (Auto) 0 (0-0.5) x10^3/uL Immature Gran # (Auto) 0.07 H (0.00-0.03) x10^3u/L Absolute Lymphs (auto) 0.62 L (1.0-4.6) x10^3/uL Absolute Monos (auto) 1.18 (0.0-1.3) x10^3/uL Absolute Nucleated RBC 0.00 (0.00-0.01) x10^3u/L Lymphocytes % 3.1 L (24.0-44.0) % Monocytes % 6.0 (0.0-12.0) % Eosinophils % 0.0 (0.00-5.0) % Basophils % 0.1 (0.0-0.4) % Absolute Granulocytes 17.84 H (1.4-6.9) x10^3/uL Basophils # 0.02 (0-0.4) x10^3/uL Sodium 136 L (137-145) mmol/L Potassium 3.4 L (3.5-5.1) mmol/L Chloride 104 (98-107) mmol/L Carbon Dioxide 23 (22-30) mmol/L Anion Gap 12.2 (5-15) MEQ/L BUN 15 (7-17) mg/dL Creatinine 0.50 L (0.52-1.04) mg/dL Estimated GFR > 60.0 ML/MIN Glucose 139 H (74-106) mg/dL Calcium 8.1 L (8.4-10.2) mg/dL Triglycerides (30-150) mg/dL Cholesterol (50-200) mg/dL LDL Cholesterol (30-100) mg/dL HDL Cholesterol (40-60) mg/dL Heart Disease Risk Ratio Urine Sodium (30-90) mmol/L C. difficile Screen (NEGATIVE) C.difficile 027-NAP1-B1 (NEGATIVE) Micro Results-Entire Visit: Microbiology 03/16/23 20:00 Blood Culture - Preliminary Blood 03/16/23 23:15 Blood Culture - Preliminary Blood - Radiology Exams Ordered Rad Exams-Entire Visit: Radiology Procedures Category Date Time Status ABDOMEN AND PELVIS W CONTRAST [CT] Stat Exams 03/16/23 23:41 Completed CHEST 1 VIEW (PORTABLE) Stat Exams 03/16/23 22:19 Completed CHEST WITH CONTRAST [CT] Stat Exams 03/16/23 23:37 Completed - Procedures and Test Procedures and Tests throughout Hospitalization: Therapy Orders & Screens 03/16/23 22:54 Respiratory Therapy Assessment DAILY Comment: 03/17/23 04:16 Oxygen Nasal Cannula 3 lpm Comment: Diagnosis: Nausea vomiting diarrhea, dehydration, COPD exacerbation, hypoxia 03/17/23 04:28 Respiratory MDI BID Comment: Diagnosis: Nausea vomiting diarrhea, dehydration, COPD exacerbation, hypoxia 03/17/23 10:40 RT Screen per Nursing Assess ONCE Comment: Protocol Order Physician Instructions: Greater than 3 points order RT Admission Screen Reason For Exam: Triggered on Admission Diagnosis: Nausea vomiting diarrhea, dehydration, COPD exacerbation, hypoxia Diagnosis: Nausea vomiting diarrhea, dehydration, COPD exacerbation, hypoxia Pneumonia: No Home O2: No Asthma: No CHF: Yes Home CPAP/BIPAP: No Home Nebs/MDI: Yes Total Points: 8 <JEREMY MCCLAIN - Last Filed: 03/18/23 14:04> Discharge Exam General Appearance: no apparent distress Neurologic Exam: oriented x 3 Eye Exam: PERRL Ears, Nose, Throat Exam: moist mucous membranes Respiratory Exam: normal breath sounds Cardiovascular Exam: regular rate/rhythm Gastrointestinal/Abdomen Exam: soft Extremity Exam: normal inspection Skin Exam: normal color <MARCO A JACOBS - Last Filed: 03/18/23 10:57> Final Diagnosis/Problem List - Final Discharge Diagnosis/Problem (1) Nausea vomiting and diarrhea Current Visit: Yes Status: Resolved Code(s): R11.2 - NAUSEA WITH VOMITING, UNSPECIFIED; R19.7 - DIARRHEA, UNSPECIFIED (2) Leukocytosis Current Visit: Yes Status: Acute Code(s): D72.829 - ELEVATED WHITE BLOOD CELL COUNT, UNSPECIFIED (3) Hyponatremia Current Visit: Yes Status: Resolved Code(s): E87.1 - HYPO-OSMOLALITY AND HYPONATREMIA (5) Generalized weakness Current Visit: Yes Status: Resolved Code(s): R53.1 - WEAKNESS (6) Hypertension Current Visit: No Status: Chronic Code(s): I10 - ESSENTIAL (PRIMARY) HYPERTENSION (7) COPD (chronic obstructive pulmonary disease) Current Visit: Yes Status: Chronic (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 I agree with the assessment, and treatment plan as described in her original note. Please see below for my summary of findings and any additional assessment and plan, as well as any meaningful corrections or explanations of their note. My portion of visit was conducted entirely via telemedicine, to which patient consented. Note, patient was to be discharged today. However, still having further difficulty with GI symptoms, difficulty tolerating her food today. We will cancel discharge and plan to observe for at least 1 more day. Jeremy Mcclain MD, PhD Internal Medicine Hospitalist [facility] <JEREMY MCCLAIN - Last Filed: 03/18/23 14:04> <MARCO A JACOBS - Last Filed: 03/18/23 10:57> <JEREMY MCCLAIN - Last Filed: 03/18/23 14:04> - Discharge Disposition: Home, Self-Care Condition: Stable Prescriptions: New Potassium Chloride Tab* [Klor Con] 40 meq PO DAILY 2 Days #2 tablet Continue Fluticasone/Vilanterol [Breo Ellipta 100-25 Mcg INH] 1 each IH UD Amlodipine Besylate 5 mg [Norvasc 5 mg] 5 mg PO QHS Lisinopril 5 mg [Zestril 5 MG] 5 mg PO DAILY Ibandronate Sodium [Boniva] 150 mg PO UD Outpatient Orders: BMP Time Frame: 3 Days, Facility: [facility], Location: LABORATORY Follow up with: ELIZABETH BELLO MD [Primary Care Provider] - LIBBY BERMUDEZ [ACTIVE STAFF] -
--- NOTE | 2023-03-18 13:36 | PCM.NOTE ---
Date and Time: 03/18/23 1330 Subjective Assessment: Met and examined patient bedside. Plan was for discharge today but patient now endorsing abdominal pain with cramping. Additionally, she reports four loose stools since this morning. No episodes of nausea or vomiting since admission and able to tolerate a regular diet. Will keep under observation overnight with possible discharge in the morning. <MARCO A JACOBS - Last Filed: 03/18/23 13:54> Date and Time: 03/18/23 1407 <JEREMY MCCLAIN - Last Filed: 03/18/23 14:08> - Review of Systems Constitutional: No Symptoms Eyes: No Symptoms Ears, Nose, & Throat: No Symptoms Respiratory: No Symptoms, Other (RA, weaned from 3LNC) Abdominal/Gastrointestinal: Abdominal Pain (cramping in characteristic), Other (multiple episodes of loose stool) Genitourinary Symptoms: No Symptoms Musculoskeletal: No Symptoms Skin: No Symptoms All Other Systems: Reviewed and Negative <MARCO A JACOBS - Last Filed: 03/18/23 13:54> Objective Exam General Appearance: no apparent distress Neurologic Exam: oriented x 3 Skin Exam: normal color Eye Exam: PERRL Ears, Nose, Throat Exam: normal ENT inspection Neck Exam: normal inspection Respiratory Exam: normal breath sounds Cardiovascular Exam: regular rate/rhythm Extremity Exam: normal inspection <MARCO A JACOBS - Last Filed: 03/18/23 13:54> OBJECTIVE DATA Vital Signs: Vital Signs - 24 hr Temp Pulse Resp BP Pulse Ox 03/18/23 11:27 97.7 F 71 16 129/60 95 03/18/23 07:43 96.8 F 87 12 108/51 92 L 03/18/23 07:25 80 18 93 L 03/18/23 04:00 97.5 F 72 18 119/63 94 L 03/18/23 00:00 97.8 F 80 18 133/78 97 03/17/23 20:00 97.8 F 88 18 130/67 98 03/17/23 18:39 92 H 97 03/17/23 16:00 97.1 F 84 18 122/60 92 L Pain Assessment - Last Documented Pain Intensity 0 Intake and Output: Intake & Output 03/16/23 03/17/23 03/18/23 03/19/23 11:59 11:59 11:59 11:59 Intake Total 100 1420 Balance 100 1420 Weight 87.4 kg 87 kg Lab Results: Lab Results-Last 24 Hours 03/17/23 03/17/23 03/17/23 Range/Units 04:25 13:30 14:40 WBC (4.0-10.5) x10^3/uL RBC (4.1-5.4) x10^6/uL Hgb (12.0-16.0) g/dL Hct (35-47) % MCV (78-100) fL MCH (26-32) pg MCHC (32-36) g/dL RDW (11.5-14.0) % Plt Count (150-450) x10^3/uL MPV (7.5-11.0) fL Gran % (36.0-66.0) % Immature Gran % (Auto) (0.00-0.4) % Nucleat RBC Rel Count (0.00-0.1) % Eos # (Auto) (0-0.5) x10^3/uL Immature Gran # (Auto) (0.00-0.03) x10^3u/L Absolute Lymphs (auto) (1.0-4.6) x10^3/uL Absolute Monos (auto) (0.0-1.3) x10^3/uL Absolute Nucleated RBC (0.00-0.01) x10^3u/L Lymphocytes % (24.0-44.0) % Monocytes % (0.0-12.0) % Eosinophils % (0.00-5.0) % Basophils % (0.0-0.4) % Absolute Granulocytes (1.4-6.9) x10^3/uL Basophils # (0-0.4) x10^3/uL Sodium 130 L (137-145) mmol/L Potassium 4.0 (3.5-5.1) mmol/L Chloride 99 (98-107) mmol/L Carbon Dioxide 18 L (22-30) mmol/L Anion Gap 16.9 H (5-15) MEQ/L BUN 14 (7-17) mg/dL Creatinine 0.63 (0.52-1.04) mg/dL Estimated GFR > 60.0 ML/MIN Glucose 142 H (74-106) mg/dL Calcium 8.3 L (8.4-10.2) mg/dL Triglycerides 81 (30-150) mg/dL Cholesterol 181 (50-200) mg/dL LDL Cholesterol 106 H (30-100) mg/dL HDL Cholesterol 43 (40-60) mg/dL Heart Disease Risk Ratio 4.2 Urine Sodium 150 H (30-90) mmol/L C. difficile Screen NEGATIVE (NEGATIVE) C.difficile 027-NAP1-B1 PRESUMPTIVE NEGATIVE (NEGATIVE) 03/17/23 03/17/23 03/18/23 Range/Units 17:28 21:30 01:42 WBC (4.0-10.5) x10^3/uL RBC (4.1-5.4) x10^6/uL Hgb (12.0-16.0) g/dL Hct (35-47) % MCV (78-100) fL MCH (26-32) pg MCHC (32-36) g/dL RDW (11.5-14.0) % Plt Count (150-450) x10^3/uL MPV (7.5-11.0) fL Gran % (36.0-66.0) % Immature Gran % (Auto) (0.00-0.4) % Nucleat RBC Rel Count (0.00-0.1) % Eos # (Auto) (0-0.5) x10^3/uL Immature Gran # (Auto) (0.00-0.03) x10^3u/L Absolute Lymphs (auto) (1.0-4.6) x10^3/uL Absolute Monos (auto) (0.0-1.3) x10^3/uL Absolute Nucleated RBC (0.00-0.01) x10^3u/L Lymphocytes % (24.0-44.0) % Monocytes % (0.0-12.0) % Eosinophils % (0.00-5.0) % Basophils % (0.0-0.4) % Absolute Granulocytes (1.4-6.9) x10^3/uL Basophils # (0-0.4) x10^3/uL Sodium 134 L 135 L 136 L (137-145) mmol/L Potassium 3.6 3.3 L 3.5 (3.5-5.1) mmol/L Chloride 101 101 103 (98-107) mmol/L Carbon Dioxide 22 21 L 23 (22-30) mmol/L Anion Gap 14.1 16.0 H 12.9 (5-15) MEQ/L BUN 13 17 16 (7-17) mg/dL Creatinine 0.54 0.58 0.52 (0.52-1.04) mg/dL Estimated GFR > 60.0 > 60.0 > 60.0 ML/MIN Glucose 208 H 235 H 151 H (74-106) mg/dL Calcium 8.3 L 8.5 8.3 L (8.4-10.2) mg/dL Triglycerides (30-150) mg/dL Cholesterol (50-200) mg/dL LDL Cholesterol (30-100) mg/dL HDL Cholesterol (40-60) mg/dL Heart Disease Risk Ratio Urine Sodium (30-90) mmol/L C. difficile Screen (NEGATIVE) C.difficile 027-NAP1-B1 (NEGATIVE) 03/18/23 03/18/23 Range/Units 04:14 04:14 WBC 19.7 H (4.0-10.5) x10^3/uL RBC 4.40 (4.1-5.4) x10^6/uL Hgb 13.7 (12.0-16.0) g/dL Hct 42.5 (35-47) % MCV 96.6 (78-100) fL MCH 31.1 (26-32) pg MCHC 32.2 (32-36) g/dL RDW 13.9 (11.5-14.0) % Plt Count 226 (150-450) x10^3/uL MPV 11.6 H (7.5-11.0) fL Gran % 90.4 H (36.0-66.0) % Immature Gran % (Auto) 0.4 (0.00-0.4) % Nucleat RBC Rel Count 0.0 (0.00-0.1) % Eos # (Auto) 0 (0-0.5) x10^3/uL Immature Gran # (Auto) 0.07 H (0.00-0.03) x10^3u/L Absolute Lymphs (auto) 0.62 L (1.0-4.6) x10^3/uL Absolute Monos (auto) 1.18 (0.0-1.3) x10^3/uL Absolute Nucleated RBC 0.00 (0.00-0.01) x10^3u/L Lymphocytes % 3.1 L (24.0-44.0) % Monocytes % 6.0 (0.0-12.0) % Eosinophils % 0.0 (0.00-5.0) % Basophils % 0.1 (0.0-0.4) % Absolute Granulocytes 17.84 H (1.4-6.9) x10^3/uL Basophils # 0.02 (0-0.4) x10^3/uL Sodium 136 L (137-145) mmol/L Potassium 3.4 L (3.5-5.1) mmol/L Chloride 104 (98-107) mmol/L Carbon Dioxide 23 (22-30) mmol/L Anion Gap 12.2 (5-15) MEQ/L BUN 15 (7-17) mg/dL Creatinine 0.50 L (0.52-1.04) mg/dL Estimated GFR > 60.0 ML/MIN Glucose 139 H (74-106) mg/dL Calcium 8.1 L (8.4-10.2) mg/dL Triglycerides (30-150) mg/dL Cholesterol (50-200) mg/dL LDL Cholesterol (30-100) mg/dL HDL Cholesterol (40-60) mg/dL Heart Disease Risk Ratio Urine Sodium (30-90) mmol/L C. difficile Screen (NEGATIVE) C.difficile 027-NAP1-B1 (NEGATIVE) Radiology Exams: Radiology Procedures Category Date Time Status ABDOMEN AND PELVIS W CONTRAST [CT] Stat Exams 03/16/23 23:41 Completed CHEST 1 VIEW (PORTABLE) Stat Exams 03/16/23 22:19 Completed CHEST WITH CONTRAST [CT] Stat Exams 03/16/23 23:37 Completed Multi-Disciplinary Progress Notes: Multi-Disciplinary Progress Notes 03/18/23 09:29 Case Management Note by Stephanie Steven S/W PATIENT- SHE CONTINUES TO DENY ANY NEW NEEDS AT TIME OF DC. SHE PLANS TO DC HOME TO HER PLF. SHE REPORTS SHE HAS FAMILY THAT CAN ASSIST HER NEEDED Initialized on 03/18/23 09:29 - END OF NOTE <MARCO A JACOBS - Last Filed: 03/18/23 13:54> Vital Signs: Vital Signs - 24 hr Temp Pulse Resp BP Pulse Ox 03/18/23 11:27 97.7 F 71 16 129/60 95 03/18/23 07:43 96.8 F 87 12 108/51 92 L 03/18/23 07:25 80 18 93 L 03/18/23 04:00 97.5 F 72 18 119/63 94 L 03/18/23 00:00 97.8 F 80 18 133/78 97 03/17/23 20:00 97.8 F 88 18 130/67 98 03/17/23 18:39 92 H 97 03/17/23 16:00 97.1 F 84 18 122/60 92 L Pain Assessment - Last Documented Pain Intensity 0 Intake and Output: Intake & Output 03/16/23 03/17/23 03/18/23 03/19/23 11:59 11:59 11:59 11:59 Intake Total 100 1420 Balance 100 1420 Weight 87.4 kg 87 kg Lab Results: Lab Results-Last 24 Hours 03/17/23 03/17/23 03/17/23 Range/Units 04:25 13:30 14:40 WBC (4.0-10.5) x10^3/uL RBC (4.1-5.4) x10^6/uL Hgb (12.0-16.0) g/dL Hct (35-47) % MCV (78-100) fL MCH (26-32) pg MCHC (32-36) g/dL RDW (11.5-14.0) % Plt Count (150-450) x10^3/uL MPV (7.5-11.0) fL Gran % (36.0-66.0) % Immature Gran % (Auto) (0.00-0.4) % Nucleat RBC Rel Count (0.00-0.1) % Eos # (Auto) (0-0.5) x10^3/uL Immature Gran # (Auto) (0.00-0.03) x10^3u/L Absolute Lymphs (auto) (1.0-4.6) x10^3/uL Absolute Monos (auto) (0.0-1.3) x10^3/uL Absolute Nucleated RBC (0.00-0.01) x10^3u/L Lymphocytes % (24.0-44.0) % Monocytes % (0.0-12.0) % Eosinophils % (0.00-5.0) % Basophils % (0.0-0.4) % Absolute Granulocytes (1.4-6.9) x10^3/uL Basophils # (0-0.4) x10^3/uL Sodium 130 L (137-145) mmol/L Potassium 4.0 (3.5-5.1) mmol/L Chloride 99 (98-107) mmol/L Carbon Dioxide 18 L (22-30) mmol/L Anion Gap 16.9 H (5-15) MEQ/L BUN 14 (7-17) mg/dL Creatinine 0.63 (0.52-1.04) mg/dL Estimated GFR > 60.0 ML/MIN Glucose 142 H (74-106) mg/dL Calcium 8.3 L (8.4-10.2) mg/dL Triglycerides 81 (30-150) mg/dL Cholesterol 181 (50-200) mg/dL LDL Cholesterol 106 H (30-100) mg/dL HDL Cholesterol 43 (40-60) mg/dL Heart Disease Risk Ratio 4.2 Urine Sodium 150 H (30-90) mmol/L C. difficile Screen NEGATIVE (NEGATIVE) C.difficile 027-NAP1-B1 PRESUMPTIVE NEGATIVE (NEGATIVE) 03/17/23 03/17/23 03/18/23 Range/Units 17:28 21:30 01:42 WBC (4.0-10.5) x10^3/uL RBC (4.1-5.4) x10^6/uL Hgb (12.0-16.0) g/dL Hct (35-47) % MCV (78-100) fL MCH (26-32) pg MCHC (32-36) g/dL RDW (11.5-14.0) % Plt Count (150-450) x10^3/uL MPV (7.5-11.0) fL Gran % (36.0-66.0) % Immature Gran % (Auto) (0.00-0.4) % Nucleat RBC Rel Count (0.00-0.1) % Eos # (Auto) (0-0.5) x10^3/uL Immature Gran # (Auto) (0.00-0.03) x10^3u/L Absolute Lymphs (auto) (1.0-4.6) x10^3/uL Absolute Monos (auto) (0.0-1.3) x10^3/uL Absolute Nucleated RBC (0.00-0.01) x10^3u/L Lymphocytes % (24.0-44.0) % Monocytes % (0.0-12.0) % Eosinophils % (0.00-5.0) % Basophils % (0.0-0.4) % Absolute Granulocytes (1.4-6.9) x10^3/uL Basophils # (0-0.4) x10^3/uL Sodium 134 L 135 L 136 L (137-145) mmol/L Potassium 3.6 3.3 L 3.5 (3.5-5.1) mmol/L Chloride 101 101 103 (98-107) mmol/L Carbon Dioxide 22 21 L 23 (22-30) mmol/L Anion Gap 14.1 16.0 H 12.9 (5-15) MEQ/L BUN 13 17 16 (7-17) mg/dL Creatinine 0.54 0.58 0.52 (0.52-1.04) mg/dL Estimated GFR > 60.0 > 60.0 > 60.0 ML/MIN Glucose 208 H 235 H 151 H (74-106) mg/dL Calcium 8.3 L 8.5 8.3 L (8.4-10.2) mg/dL Triglycerides (30-150) mg/dL Cholesterol (50-200) mg/dL LDL Cholesterol (30-100) mg/dL HDL Cholesterol (40-60) mg/dL Heart Disease Risk Ratio Urine Sodium (30-90) mmol/L C. difficile Screen (NEGATIVE) C.difficile 027-NAP1-B1 (NEGATIVE) 03/18/23 03/18/23 Range/Units 04:14 04:14 WBC 19.7 H (4.0-10.5) x10^3/uL RBC 4.40 (4.1-5.4) x10^6/uL Hgb 13.7 (12.0-16.0) g/dL Hct 42.5 (35-47) % MCV 96.6 (78-100) fL MCH 31.1 (26-32) pg MCHC 32.2 (32-36) g/dL RDW 13.9 (11.5-14.0) % Plt Count 226 (150-450) x10^3/uL MPV 11.6 H (7.5-11.0) fL Gran % 90.4 H (36.0-66.0) % Immature Gran % (Auto) 0.4 (0.00-0.4) % Nucleat RBC Rel Count 0.0 (0.00-0.1) % Eos # (Auto) 0 (0-0.5) x10^3/uL Immature Gran # (Auto) 0.07 H (0.00-0.03) x10^3u/L Absolute Lymphs (auto) 0.62 L (1.0-4.6) x10^3/uL Absolute Monos (auto) 1.18 (0.0-1.3) x10^3/uL Absolute Nucleated RBC 0.00 (0.00-0.01) x10^3u/L Lymphocytes % 3.1 L (24.0-44.0) % Monocytes % 6.0 (0.0-12.0) % Eosinophils % 0.0 (0.00-5.0) % Basophils % 0.1 (0.0-0.4) % Absolute Granulocytes 17.84 H (1.4-6.9) x10^3/uL Basophils # 0.02 (0-0.4) x10^3/uL Sodium 136 L (137-145) mmol/L Potassium 3.4 L (3.5-5.1) mmol/L Chloride 104 (98-107) mmol/L Carbon Dioxide 23 (22-30) mmol/L Anion Gap 12.2 (5-15) MEQ/L BUN 15 (7-17) mg/dL Creatinine 0.50 L (0.52-1.04) mg/dL Estimated GFR > 60.0 ML/MIN Glucose 139 H (74-106) mg/dL Calcium 8.1 L (8.4-10.2) mg/dL Triglycerides (30-150) mg/dL Cholesterol (50-200) mg/dL LDL Cholesterol (30-100) mg/dL HDL Cholesterol (40-60) mg/dL Heart Disease Risk Ratio Urine Sodium (30-90) mmol/L C. difficile Screen (NEGATIVE) C.difficile 027-NAP1-B1 (NEGATIVE) Radiology Exams: Radiology Procedures Category Date Time Status ABDOMEN AND PELVIS W CONTRAST [CT] Stat Exams 03/16/23 23:41 Completed CHEST 1 VIEW (PORTABLE) Stat Exams 03/16/23 22:19 Completed CHEST WITH CONTRAST [CT] Stat Exams 03/16/23 23:37 Completed Multi-Disciplinary Progress Notes: Multi-Disciplinary Progress Notes 03/18/23 09:29 Case Management Note by Stephanie Steven S/W PATIENT- SHE CONTINUES TO DENY ANY NEW NEEDS AT TIME OF DC. SHE PLANS TO DC HOME TO HER PLF. SHE REPORTS SHE HAS FAMILY THAT CAN ASSIST HER NEEDED Initialized on 03/18/23 09:29 - END OF NOTE <JEREMY MCCLAIN - Last Filed: 03/18/23 14:08> Assessment/Plan (1) Nausea vomiting and diarrhea Current Visit: Yes Status: Resolved Assessment & Plan: Nausea/vomiting have resolved. However, patient does have complaints of multiple episodes of loose stool. -Zofran PRN -Add loperamide prn Code(s): R11.2 - NAUSEA WITH VOMITING, UNSPECIFIED; R19.7 - DIARRHEA, UNSPECIFIED (2) Leukocytosis Current Visit: Yes Status: Acute Assessment & Plan: Most likely multifocal and reactive with recent use of solu-medrol, nausea, vomiting, and inflamed bowel. -Blood cultures NTD, lactate wnl, urine negative -trend CBC -Continue bowel rest, ADAT -Zofran for N/V PRN Code(s): D72.829 - ELEVATED WHITE BLOOD CELL COUNT, UNSPECIFIED (3) Hyponatremia Current Visit: Yes Status: Resolved Assessment & Plan: Hypoosmolar hyponatremia secondary to hypovolemia from N/V/D -Improved with IVF, near baseline at 136, will d/c fluids and continue to monitor while IP Code(s): E87.1 - HYPO-OSMOLALITY AND HYPONATREMIA (4) Hypokalemia Current Visit: Yes Status: Acute Assessment & Plan: Secondary to GI loss, poor oral intake -Labs reviewed, potassium level mildly low at 3.4, will add oral potassium chloride at 40meq daily x 3 days Code(s): E87.6 - HYPOKALEMIA (5) Generalized weakness Current Visit: Yes Status: Resolved Code(s): R53.1 - WEAKNESS (6) Hypertension Current Visit: No Status: Chronic Assessment & Plan: -Stable, continue home meds amlodipine/lisinopril Code(s): I10 - ESSENTIAL (PRIMARY) HYPERTENSION (7) COPD (chronic obstructive pulmonary disease) Current Visit: Yes Status: Chronic Qualifiers: COPD type: COPD with acute exacerbation Qualified Code(s): J44.1 - Chronic obstructive pulmonary disease with (acute) exacerbation Assessment & Plan: -Does not appear to be in exacerbation -Stable on RA with spo2 @95% -Continue RT management with nebs/inh prn (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 Rivera Code(s): J84.10 - PULMONARY FIBROSIS, UNSPECIFIED <MARCO A JACOBS - Last Filed: 03/18/23 13:54> Telemedicine Encounter - Telemedicine Encounter Telemedicine Encounter: The entirety of this encounter was performed via Telemedicine" <MARCO A AJCOBS - Last Filed: 03/18/23 13:54> - Telemedicine Encounter Telemedicine Encounter: I have personally seen and examined patient and discussed care with Marco A Jacobs NP and reviewed pertinent clinical data including history, physical, and diagnostic findings. I agree with the assessment, and treatment plan as described in her original note. Please see below for my summary of findings and any additional assessment and plan, as well as any meaningful corrections or explanations of their note. My portion of visit was conducted entirely via telemedicine, to which patient consented. 77-year-old man, admitted with likely viral gastroenteritis. Improving today, and we were planning on discharge, but she had more difficulty with trying to eat foods, with increased abdominal pain. We will continue on mild diet and observe for 1 more night. Of note, patient has increased leukocytosis, likely secondary to high-dose steroids use yesterday. Jeremy Mcclain MD, PhD Internal Medicine Hospitalist [facility] <JEREMY MCCLAIN - Last Filed: 03/18/23 14:08>
[2023-03-18] MEDS ORDERED: Tums EX 750 MG PO SCH (18:30)
[2023-03-18] MEDS ORDERED: Tums EX 750 MG ONE (18:47)
[2023-03-18] MEDS ORDERED: Tums EX 750 MG PO PRN (18:53)
[2023-03-18] MEDS: Zofran 4 MG/2 ML VIAL IV PRN (20:24)
[2023-03-18] MEDS: NORVASC 5 MG PO SCH (22:02)
[2023-03-18] MEDS: TYLENOL 325 MG PO PRN (23:38)
--- NOTE | 2023-03-19 01:15 | XRAY ---
CLINICAL HISTORY:Severe abdominal pain COMPARISON:Review of CT scan of abdomen dated 03/16/2023. TECHNIQUE:X-ray examination of KUB areas is performed in 2 AP views. FINDINGS: The stomach, small bowel, and colon gas patterns are all normal and there is no free air around the falciform ligament. No definite radiopaque shadows could be depicted. Lumbar scoliosis with convexity towards the right side with moderate lumbar spondylosis. Osteoarthritic changes are seen in both hip joints. No definite acute osseous abnormality is seen. IMPRESSION: 1. An unremarkable x-ray of the abdomen with no definite radio-opaque shadows could be depicted along the anatomical course of the kidneys, ureters, and urinary bladder. 2. No radiographic features of intestinal obstruction. No features of intestinal obstruction were present during the previous CT scan. Electronically Signed by: Joe Sibley MD. (03/19/2023 00:14:14 STAFF NURSE [employer]WIFE)
[2023-03-19] MEDS: Zofran 4 MG/2 ML VIAL IV PRN ×2 (05:34→17:59)
[2023-03-19 05:53] LABS: Absolute Neutrophil Ct (ANC) 9.33 x10^3/uL (1.4-6.9); BASOPHIL % 0.2 % (0.0-0.4); Basophil (Absolute #) 0.02 x10^3/uL (0-0.4); Eosinophil (Absolute #) 0 x10^3/uL (0-0.5); Hematocrit 46.4 % (35-47); Hemoglobin 15.2 g/dL (12.0-16.0); IMMATURE GRAN # 0.07 x10^3u/L (0.00-0.03); IMMATURE GRAN % 0.6 % (0.00-0.4); Lymphocyte (Absolute #) 0.91 x10^3/uL (1.0-4.6); Lymphocytes % 7.8 % (24.0-44.0); Mean Cell Volume 95.1 fL (78-100); Mean Corpuscular Hemoglobin 31.1 pg (26-32); Mean Corpuscular Hgb Concent. 32.8 g/dL (32-36); Mean Platelet Volume 11.1 fL (7.5-11.0); Monocyte (Absolute #) 1.34 x10^3/uL (0.0-1.3); Monocytes % 11.5 % (0.0-12.0); Neutrophil % 79.9 % (36.0-66.0); Platelet Count 224 x10^3/uL (150-450); Red Blood Count 4.88 x10^6/uL (4.1-5.4); White Blood Count 11.7 x10^3/uL (4.0-10.5)
[2023-03-19 06:16] LABS: ALBUMIN 3.3 g/dL (3.5-5.0); ALKALINE PHOSPHATASE 61 U/L (38-126); BLOOD UREA NITROGEN 13 mg/dL (7-17); CHLORIDE 98 mmol/L (98-107); Calcium 7.7 mg/dL (8.4-10.2); Carbon Dioxide 24 mmol/L (22-30); Creatinine 1 0.62 mg/dL (0.52-1.04); EST GLOMERULAR FILTRATION RATE > 60.0 ML/MIN; Glucose 112 mg/dL (74-106); Potassium 3.4 mmol/L (3.5-5.1); SGOT/AST 23 U/L (14-36); SGPT/ALT 17 U/L (0-35); SODIUM 131 mmol/L (137-145); Total Protein 6.2 g/dL (6.3-8.2)
[2023-03-19] MEDS: Sodium Chloride 0.9% 1000 ML 1,000 ML IV SCH (06:37)
[2023-03-19] MEDS: Advair Hfa 115/21 Common canister IH SCH (07:39)
[2023-03-19] MEDS: IMODIUM 2 MG PO PRN ×5 (08:28→17:13)
[2023-03-19] MEDS: Zestril 5 MG PO SCH (09:57)
[2023-03-19] MEDS: Klor Con PO SCH (10:03)
[2023-03-19] MEDS: Pedialyte PO ONE ×2 (10:28→10:29)
[2023-03-19] MEDS: DICLOFENAC SODIUM TP SCH ×4 (10:29→23:20)
[2023-03-19] MEDS: TYLENOL 325 MG PO PRN (17:17)
[2023-03-19] MEDS ORDERED: TORAdol 30 mg Injection IV ONE (20:23)
[2023-03-19] MEDS: NORVASC 5 MG PO SCH (22:10)
[2023-03-20] MEDS: IMODIUM 2 MG PO PRN (02:12)
[2023-03-20] MEDS: Zofran 4 MG/2 ML VIAL IV PRN (02:13)
[2023-03-20] MEDS: DICLOFENAC SODIUM TP SCH ×4 (02:24→18:03)
[2023-03-20 05:43] LABS: Absolute Neutrophil Ct (ANC) 9.28 x10^3/uL (1.4-6.9); BASOPHIL % 0.3 % (0.0-0.4); Basophil (Absolute #) 0.04 x10^3/uL (0-0.4); Eosinophil % 0.1 % (0.00-5.0); Eosinophil (Absolute #) 0.01 x10^3/uL (0-0.5); Hematocrit 43.8 % (35-47); Hemoglobin 14.8 g/dL (12.0-16.0); IMMATURE GRAN # 0.07 x10^3u/L (0.00-0.03); IMMATURE GRAN % 0.6 % (0.00-0.4); Lymphocyte (Absolute #) 0.85 x10^3/uL (1.0-4.6); Lymphocytes % 7.1 % (24.0-44.0); Mean Cell Volume 92.6 fL (78-100); Mean Corpuscular Hemoglobin 31.3 pg (26-32); Mean Corpuscular Hgb Concent. 33.8 g/dL (32-36); Mean Platelet Volume 10.9 fL (7.5-11.0); Monocyte (Absolute #) 1.78 x10^3/uL (0.0-1.3); Monocytes % 14.8 % (0.0-12.0); Neutrophil % 77.1 % (36.0-66.0); Platelet Count 224 x10^3/uL (150-450); Red Blood Count 4.73 x10^6/uL (4.1-5.4); Red Cell Distribution Width 13.6 % (11.5-14.0)
[2023-03-20 06:00] LABS: ALBUMIN 3.2 g/dL (3.5-5.0); ALKALINE PHOSPHATASE 64 U/L (38-126); BLOOD UREA NITROGEN 17 mg/dL (7-17); CHLORIDE 96 mmol/L (98-107); Calcium 7.6 mg/dL (8.4-10.2); Carbon Dioxide 23 mmol/L (22-30); Creatinine 1 0.68 mg/dL (0.52-1.04); EST GLOMERULAR FILTRATION RATE > 60.0 ML/MIN; Glucose 104 mg/dL (74-106); Potassium 3.1 mmol/L (3.5-5.1); SGOT/AST 23 U/L (14-36); SGPT/ALT 17 U/L (0-35); SODIUM 129 mmol/L (137-145); Total Protein 5.9 g/dL (6.3-8.2)
--- NOTE | 2023-03-20 07:13 | PCM.NOTE ---
Date and Time: 03/19/23710 Subjective Assessment: Dizziness improved, taking in pedialyte; still with diarrhea; no appetite; will check orthostatics today - Review of Systems Eyes: No Symptoms Ears, Nose, & Throat: No Symptoms Respiratory: No Symptoms Cardiac: No Symptoms Abdominal/Gastrointestinal: Abdominal Pain, Diarrhea Genitourinary Symptoms: No Symptoms Objective Exam Neurologic Exam: alert, oriented x 3, cooperative Skin Exam: normal color Neck Exam: normal inspection Respiratory Exam: normal breath sounds Cardiovascular Exam: regular rate/rhythm Gastrointestinal/Abdomen Exam: soft OBJECTIVE DATA Vital Signs: Vital Signs - 24 hr Temp Pulse Resp BP Pulse Ox 03/20/23 04:00 85 18 106/53 86 L 03/20/23 02:29 98.5 F 03/20/23 00:00 77 122/53 86 L 03/19/23 20:00 97.5 F 72 20 109/54 92 L 03/19/23 19:40 77 22 93 L 03/19/23 15:53 99.6 F 75 16 100/48 94 L 03/19/23 14:36 81 86/49 03/19/23 14:35 83 90/55 03/19/23 14:34 76 90/51 03/19/23 11:33 99.6 F 79 19 119/56 89 L 03/19/23 07:43 82 18 90 L Pain Assessment - Last Documented Pain Intensity 6 Pain Scale Used 0-10 Pain Scale Intake and Output: Intake & Output 03/17/23 03/18/23 03/19/23 03/20/23 11:59 11:59 11:59 11:59 Intake Total 100 1420 1200 Output Total 2 Balance 100 1420 1198 Weight 87.4 kg 87 kg 87.7 kg Lab Results: Lab Results-Last 24 Hours 03/20/23 03/20/23 Range/Units 05:19 05:19 WBC 12.0 H (4.0-10.5) x10^3/uL RBC 4.73 (4.1-5.4) x10^6/uL Hgb 14.8 (12.0-16.0) g/dL Hct 43.8 (35-47) % MCV 92.6 (78-100) fL MCH 31.3 (26-32) pg MCHC 33.8 (32-36) g/dL RDW 13.6 (11.5-14.0) % Plt Count 224 (150-450) x10^3/uL MPV 10.9 (7.5-11.0) fL Gran % 77.1 H (36.0-66.0) % Immature Gran % (Auto) 0.6 H (0.00-0.4) % Nucleat RBC Rel Count 0.0 (0.00-0.1) % Eos # (Auto) 0.01 (0-0.5) x10^3/uL Immature Gran # (Auto) 0.07 H (0.00-0.03) x10^3u/L Absolute Lymphs (auto) 0.85 L (1.0-4.6) x10^3/uL Absolute Monos (auto) 1.78 H (0.0-1.3) x10^3/uL Absolute Nucleated RBC 0.00 (0.00-0.01) x10^3u/L Lymphocytes % 7.1 L (24.0-44.0) % Monocytes % 14.8 H (0.0-12.0) % Eosinophils % 0.1 (0.00-5.0) % Basophils % 0.3 (0.0-0.4) % Absolute Granulocytes 9.28 H (1.4-6.9) x10^3/uL Basophils # 0.04 (0-0.4) x10^3/uL Sodium 129 L (137-145) mmol/L Potassium 3.1 L (3.5-5.1) mmol/L Chloride 96 L (98-107) mmol/L Carbon Dioxide 23 (22-30) mmol/L Anion Gap 13.0 (5-15) MEQ/L BUN 17 (7-17) mg/dL Creatinine 0.68 (0.52-1.04) mg/dL Estimated GFR > 60.0 ML/MIN Glucose 104 (74-106) mg/dL Calcium 7.6 L (8.4-10.2) mg/dL Total Bilirubin 0.50 (0.2-1.3) mg/dL AST 23 (14-36) U/L ALT 17 (0-35) U/L Alkaline Phosphatase 64 (38-126) U/L Serum Total Protein 5.9 L (6.3-8.2) g/dL Albumin 3.2 L (3.5-5.0) g/dL Radiology Exams: Radiology Procedures Category Date Time Status KUB Stat Exams 03/18/23 23:33 Completed Assessment/Plan (1) Dehydration Current Visit: Yes Status: Acute Assessment & Plan: (1) Nausea vomiting and diarrhea Current Visit: Yes Status: Resolved Assessment & Plan: Nausea/vomiting have resolved. However, patient does have complaints of multiple episodes of loose stool. -Zofran PRN -Add loperamide prn Code(s): R11.2 - NAUSEA WITH VOMITING, UNSPECIFIED; R19.7 - DIARRHEA, UNSPECIFIED (2) Leukocytosis Current Visit: Yes Status: Acute Assessment & Plan: Most likely multifocal and reactive with recent use of solu-medrol, nausea, vomiting, and inflamed bowel. -Blood cultures NTD, lactate wnl, urine negative -trend CBC -Continue bowel rest, ADAT -Zofran for N/V PRN Code(s): D72.829 - ELEVATED WHITE BLOOD CELL COUNT, UNSPECIFIED (3) Hyponatremia Current Visit: Yes Status: Resolved Assessment & Plan: Hypoosmolar hyponatremia secondary to hypovolemia from N/V/D -Improved with IVF, near baseline at 136, will d/c fluids and continue to monitor while IP Code(s): E87.1 - HYPO-OSMOLALITY AND HYPONATREMIA (4) Hypokalemia Current Visit: Yes Status: Acute Assessment & Plan: Secondary to GI loss, poor oral intake -Labs reviewed, potassium level mildly low at 3.4, will add oral potassium c hloride at 40meq daily x 3 days Code(s): E87.6 - HYPOKALEMIA (5) Generalized weakness Current Visit: Yes Status: Resolved Code(s): R53.1 - WEAKNESS (6) Hypertension Current Visit: No Status: Chronic Assessment & Plan: -Stable, continue home meds amlodipine/lisinopril Code(s): I10 - ESSENTIAL (PRIMARY) HYPERTENSION (7) COPD (chronic obstructive pulmonary disease) Current Visit: Yes Status: Chronic Qualifiers: COPD type: COPD with acute exacerbation Qualified Code(s): J44.1 - Chronic obstructive pulmonary disease with (acute) exacerbation Assessment & Plan: -Does not appear to be in exacerbation -Stable on RA with spo2 @95% -Continue RT management with nebs/inh prn (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 Rivera Code(s): J84.10 - PULMONARY FIBROSIS, UNSPECIFIED Code(s): E86.0 - DEHYDRATION Telemedicine Encounter - Telemedicine Encounter Telemedicine Encounter: The entirety of this encounter was performed via Telemedicine"
--- NOTE | 2023-03-20 09:34 | PCM.NOTE ---
Date and Time: 03/20/23930 Subjective Assessment: Still with 8/10 cramping pain; does not want analgesia, wants heating pad; no diarrhoea since yesterday; tolerating toast; does not appear comfortable to go home; orthostatic negative yesterday - Review of Systems Eyes: No Symptoms Ears, Nose, & Throat: No Symptoms Respiratory: No Symptoms Cardiac: No Symptoms Abdominal/Gastrointestinal: Abdominal Pain Genitourinary Symptoms: No Symptoms Musculoskeletal: No Symptoms Skin: No Symptoms Neurological: No Symptoms Objective Exam General Appearance: mild distress Neurologic Exam: alert, oriented x 3, cooperative Skin Exam: normal color Neck Exam: normal inspection Respiratory Exam: normal breath sounds Cardiovascular Exam: regular rate/rhythm Gastrointestinal/Abdomen Exam: tenderness OBJECTIVE DATA Vital Signs: Vital Signs - 24 hr Temp Pulse Resp BP Pulse Ox 03/20/23 07:55 85 16 92 L 03/20/23 07:22 98.4 F 89 19 103/51 82 L 03/20/23 04:00 85 18 106/53 86 L 03/20/23 02:29 98.5 F 03/20/23 00:00 77 122/53 86 L 03/19/23 20:00 97.5 F 72 20 109/54 92 L 03/19/23 19:40 77 22 93 L 03/19/23 15:53 99.6 F 75 16 100/48 94 L 03/19/23 14:36 81 86/49 03/19/23 14:35 83 90/55 03/19/23 14:34 76 90/51 03/19/23 11:33 99.6 F 79 19 119/56 89 L Pain Assessment - Last Documented Pain Intensity 6 Pain Scale Used 0-10 Pain Scale Intake and Output: Intake & Output 03/17/23 03/18/23 03/19/23 03/20/23 11:59 11:59 11:59 11:59 Intake Total 100 1420 1200 Output Total 2 Balance 100 1420 1198 Weight 87.4 kg 87 kg 87.7 kg Lab Results: Lab Results-Last 24 Hours 03/20/23 03/20/23 Range/Units 05:19 05:19 WBC 12.0 H (4.0-10.5) x10^3/uL RBC 4.73 (4.1-5.4) x10^6/uL Hgb 14.8 (12.0-16.0) g/dL Hct 43.8 (35-47) % MCV 92.6 (78-100) fL MCH 31.3 (26-32) pg MCHC 33.8 (32-36) g/dL RDW 13.6 (11.5-14.0) % Plt Count 224 (150-450) x10^3/uL MPV 10.9 (7.5-11.0) fL Gran % 77.1 H (36.0-66.0) % Immature Gran % (Auto) 0.6 H (0.00-0.4) % Nucleat RBC Rel Count 0.0 (0.00-0.1) % Eos # (Auto) 0.01 (0-0.5) x10^3/uL Immature Gran # (Auto) 0.07 H (0.00-0.03) x10^3u/L Absolute Lymphs (auto) 0.85 L (1.0-4.6) x10^3/uL Absolute Monos (auto) 1.78 H (0.0-1.3) x10^3/uL Absolute Nucleated RBC 0.00 (0.00-0.01) x10^3u/L Lymphocytes % 7.1 L (24.0-44.0) % Monocytes % 14.8 H (0.0-12.0) % Eosinophils % 0.1 (0.00-5.0) % Basophils % 0.3 (0.0-0.4) % Absolute Granulocytes 9.28 H (1.4-6.9) x10^3/uL Basophils # 0.04 (0-0.4) x10^3/uL Sodium 129 L (137-145) mmol/L Potassium 3.1 L (3.5-5.1) mmol/L Chloride 96 L (98-107) mmol/L Carbon Dioxide 23 (22-30) mmol/L Anion Gap 13.0 (5-15) MEQ/L BUN 17 (7-17) mg/dL Creatinine 0.68 (0.52-1.04) mg/dL Estimated GFR > 60.0 ML/MIN Glucose 104 (74-106) mg/dL Calcium 7.6 L (8.4-10.2) mg/dL Total Bilirubin 0.50 (0.2-1.3) mg/dL AST 23 (14-36) U/L ALT 17 (0-35) U/L Alkaline Phosphatase 64 (38-126) U/L Serum Total Protein 5.9 L (6.3-8.2) g/dL Albumin 3.2 L (3.5-5.0) g/dL Radiology Exams: Radiology Procedures Category Date Time Status KUB Stat Exams 03/18/23 23:33 Completed Assessment/Plan (1) Dehydration Current Visit: Yes Status: Acute Assessment & Plan: (1) Dehydration Current Visit: Yes Status: Acute Assessment & Plan: (1) Nausea vomiting and diarrhea Current Visit: Yes Status: Resolved Assessment & Plan: Nausea/vomiting have resolved. However, patient does have complaints of multiple episodes of loose stool - none since yesterday orthostatics negative. -Zofran PRN -Add loperamide prn - will continue toast today and try to advance diet; does not want pain meds for cramping abdominal pain Code(s): R11.2 - NAUSEA WITH VOMITING, UNSPECIFIED; R19.7 - DIARRHEA, UNSPECIFIED (2) Leukocytosis Current Visit: Yes Status: Acute Assessment & Plan: Most likely multifocal and reactive with recent use of solu-medrol, nausea, vomiting, and inflamed bowel. -Blood cultures NTD, lactate wnl, urine negative -trend CBC -Continue bowel rest, ADAT -Zofran for N/V PRN Code(s): D72.829 - ELEVATED WHITE BLOOD CELL COUNT, UNSPECIFIED (3) Hyponatremia Current Visit: Yes Status: Resolved Assessment & Plan: Hypoosmolar hyponatremia secondary to hypovolemia from N/V/D -Improved with IVF, near baseline at 136, will d/c fluids and continue to monitor while IP Code(s): E87.1 - HYPO-OSMOLALITY AND HYPONATREMIA (4) Hypokalemia Current Visit: Yes Status: Acute Assessment & Plan: Secondary to GI loss, poor oral intake -Labs reviewed, potassium level mildly low at 3.4, will add oral potassium chloride at 40meq daily x 3 days Code(s): E87.6 - HYPOKALEMIA (5) Generalized weakness Current Visit: Yes Status: Resolved Code(s): R53.1 - WEAKNESS (6) Hypertension Current Visit: No Status: Chronic Assessment & Plan: -Stable, continue home meds amlodipine/lisinopril Code(s): I10 - ESSENTIAL (PRIMARY) HYPERTENSION (7) COPD (chronic obstructive pulmonary disease) Current Visit: Yes Status: Chronic Qualifiers: COPD type: COPD with acute exacerbation Qualified Code(s): J44.1 - Chronic obstructive pulmonary disease with (acute) exacerbation Assessment & Plan: -Does not appear to be in exacerbation -Stable on RA with spo2 @95% -Continue RT management with nebs/inh prn (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 Rivera Code(s): J84.10 - PULMONARY FIBROSIS, UNSPECIFIED Code(s): E86.0 - DEHYDRATION Code(s): E86.0 - DEHYDRATION Telemedicine Encounter - Telemedicine Encounter Telemedicine Encounter: The entirety of this encounter was performed via Telemedicine"
[2023-03-20] MEDS: Zestril 5 MG PO SCH (11:18)
[2023-03-20] MEDS: Klor Con PO SCH (11:19)
[2023-03-20 11:50] LABS: Slide Review 1 YES
[2023-03-20] MEDS: TYLENOL 325 MG PO PRN (16:08)
[2023-03-20] MEDS: NORVASC 5 MG PO SCH (22:03)
[2023-03-21] MEDS: DICLOFENAC SODIUM TP SCH ×3 (01:28→15:32)
[2023-03-21] MEDS: IMODIUM 2 MG PO PRN (03:53)
[2023-03-21 04:44] LABS: Absolute Neutrophil Ct (ANC) 4.96 x10^3/uL (1.4-6.9); BASOPHIL % 0.5 % (0.0-0.4); Basophil (Absolute #) 0.04 x10^3/uL (0-0.4); Eosinophil % 1.4 % (0.00-5.0); Eosinophil (Absolute #) 0.11 x10^3/uL (0-0.5); Hematocrit 42.9 % (35-47); Hemoglobin 14.3 g/dL (12.0-16.0); IMMATURE GRAN # 0.07 x10^3u/L (0.00-0.03); IMMATURE GRAN % 0.9 % (0.00-0.4); Lymphocyte (Absolute #) 1.26 x10^3/uL (1.0-4.6); Lymphocytes % 15.9 % (24.0-44.0); Mean Cell Volume 92.7 fL (78-100); Mean Corpuscular Hemoglobin 30.9 pg (26-32); Mean Corpuscular Hgb Concent. 33.3 g/dL (32-36); Monocyte (Absolute #) 1.46 x10^3/uL (0.0-1.3); Monocytes % 18.5 % (0.0-12.0); Neutrophil % 62.8 % (36.0-66.0); Platelet Count 228 x10^3/uL (150-450); Red Blood Count 4.63 x10^6/uL (4.1-5.4); Red Cell Distribution Width 13.5 % (11.5-14.0); White Blood Count 7.9 x10^3/uL (4.0-10.5)
[2023-03-21 04:51] LABS: ALBUMIN 3.2 g/dL (3.5-5.0); ALKALINE PHOSPHATASE 66 U/L (38-126); BLOOD UREA NITROGEN 19 mg/dL (7-17); CHLORIDE 94 mmol/L (98-107); Calcium 7.6 mg/dL (8.4-10.2); Carbon Dioxide 24 mmol/L (22-30); Creatinine 1 0.73 mg/dL (0.52-1.04); EST GLOMERULAR FILTRATION RATE > 60.0 ML/MIN; Glucose 97 mg/dL (74-106); SGOT/AST 20 U/L (14-36); SGPT/ALT 17 U/L (0-35); SODIUM 128 mmol/L (137-145); Total Protein 5.8 g/dL (6.3-8.2)
--- NOTE | 2023-03-21 05:31 | TM.IN ---
Tele-Medicine Incident Note - Incident Note Tel-Medicine Incident Note: 03/21/23 6360 Hypokalemia noted, but patient is declining repletion (oral or IV) due to her belief that potassium repletion contributed to her gastritis. She has been made aware about the risks of not repleting the potassium, including arrhythmia. Telemedicine Encounter - Telemedicine Encounter Telemedicine Encounter: The entirety of this encounter was performed via Telemedicine"
[2023-03-21] MEDS: Advair Hfa 115/21 Common canister IH SCH (07:50)
[2023-03-21] MEDS: Zestril 5 MG PO SCH (09:50)
[2023-03-21] MEDS: Sodium Chloride 0.9% 1000 ML 1,000 ML IV SCH (10:04)
[2023-03-21] MEDS: POTASSIUM CHLORIDE 20 mEq IN WATER 100ML 20 MEQ/100 ML BAG IV SCH ×2 (10:05→12:29)
--- NOTE | 2023-03-21 11:46 | PCM.DS ---
Discharge Summary Date of Admission: 03/17/23 02:24 Date of Discharge: 03/21/23 Admitting Physician: BETY GARCIA MD Primary Care Provider: ELIZABETH BELLO <MARCO A JACOBS - Last Filed: 03/21/23 11:46> Date of Admission: 03/17/23 02:24 Admitting Physician: BETY GARCIA MD Primary Care Provider: ELIZABETH BELLO <JEREMY MCCLAIN - Last Filed: 03/21/23 17:13> Allergies <MARCO A JACOBS - Last Filed: 03/21/23 11:46> <[email or web address] - Last Filed: 03/21/23 17:13> Allergies moxifloxacin HCl [From Avelox] Allergy (Severe, Verified 03/17/23 03:29) Hives oseltamivir [From Tamiflu] Allergy (Severe, Verified 03/16/23 19:34) Swelling of Face Sulfa (Sulfonamide Antibiotics) Allergy (Mild, Verified 03/17/23 03:30) Hives codeine Allergy (Verified 03/17/23 03:30) Hives Penicillins Allergy (Verified 03/17/23 03:30) [facility] Hospital Summary - Hospital Course Hospital Course: Ms. Bhatia is a 77-year-old female with a pmhx of COPD and hypertension admitted under observation 03/17/23 for nausea, vomiting, diarrhea, hyponatremia, and leukocytosis after presenting to the ED with complaints of nausea vomiting and diarrhea with onset 03/16/23. Upon arrival to ED the patient was observed to be dehydrated with noted dry oral mucous membranes. Patient had a resting tachycardia, with EKG findings consistent with sinus tachycardia, likely due to hypovolemia. Additionally while in ED patient developed hypoxia with oxygen saturation dipping into the 80's and was placed on 3 L nasal cannula, RA at baseline. D-dimer was ordered, resulted as positive and subsequently a CTA was ordered, which was negative for PE. Chronic findings were observed on the CTA including emphysema. Patient does have a history of COPD. ER work-up also incl uded CBC, CMP, troponin, UA, TSH, lactic acid, COVID test, lipase, and blood culture. CBC revealed a leukocytosis with a WBC of 18,000. Patient was also mildly hyponatremic with sodium levels at 130 on admission secondary to hypovolemia. COVID test negative as well as Flu A/B/RSV. TSH ordered as p atient had a baseline tachycardia and resulted as normal. Lactic acid within normal range as well. Blood cultures prelim is negative. Urinalysis negative for infection. CT abdomen pelvis revealed a inflamed distal ileum cecum and proximal ascending colon. This inflamed bowel likely contributed to the leukocytosis as well. Unclear whether the inflamed bowel is secondary to an infectious versus i nflammatory etiology. CDIff negative. During hospital course, patient received IV hydration correcting her sodium levels, and IV potassium for hypokalemia. Nausea and vomiting resolved. She is now able to tolerate a regular diet, is at her baseline RA, and vitals remain stable. Her WBC is now wnl. She does still have some episodes of loose stools for which immodium has been advised, no more than eight tabs per day. Patient will discharge home today with advisement to follow up with Dr. Bello in one week with BMP prior, order sent to [facility]. (1) Dehydration Current Visit: Yes Status: Acute Assessment & Plan: (1) Dehydration Current Visit: Yes Status: Acute Assessment & Plan: (1) Nausea vomiting and diarrhea Current Visit: Yes Status: Resolved Assessment & Plan: Nausea/vomiting have resolved. However, patient does have complaints of multiple episodes of loose stool - none since yesterday orthostatics negative. -Zofran PRN -Add loperamide prn - will continue toast today and try to advance diet; does not want pain meds for cramping abdominal pain Code(s): R11.2 - NAUSEA WITH VOMITING, UNSPECIFIED; R19.7 - DIARRHEA, UNSPECIFIED (2) Leukocytosis Current Visit: Yes Status: Acute Assessment & Plan: Most likely multifocal and reactive with recent use of solu-medrol, nausea, vomiting, and inflamed bowel. -Blood cultures NTD, lactate wnl, urine negative -trend CBC -Continue bowel rest, ADAT -Zofran for N/V PRN Code(s): D72.829 - ELEVATED WHITE BLOOD CELL COUNT, UNSPECIFIED (3) Hyponatremia Current Visit: Yes Status: Resolved Assessment & Plan: Hypoosmolar hyponatremia secondary to hypovolemia from N/V/D -Improved with IVF, near baseline at 136, will d/c fluids and continue to monitor while IP Code(s): E87.1 - HYPO-OSMOLALITY AND HYPONATREMIA (4) Hypokalemia Current Visit: Yes Status: Acute Assessment & Plan: Secondary to GI loss, poor oral intake -Labs reviewed, potassium level mildly low at 3.4, will add oral potassium chloride at 40meq daily x 3 days 03/21/23 -potassium replenished with 40meq IVPB Code(s): E87.6 - HYPOKALEMIA (5) Generalized weakness Current Visit: Yes Status: Resolved Code(s): R53.1 - WEAKNESS (6) Hypertension Current Visit: No Status: Chronic Assessment & Plan: -Stable, continue home meds amlodipine/lisinopril Code(s): I10 - ESSENTIAL (PRIMARY) HYPERTENSION (7) COPD (chronic obstructive pulmonary disease) Current Visit: Yes Status: Chronic Qualifiers: COPD type: COPD with acute exacerbation Qualified Code(s): J44.1 - Chronic obstructive pulmonary disease with (acute) exacerbation Assessment & Plan: -Does not appear to be in exacerbation -Stable on RA with spo2 @95% -Continue RT management with nebs/inh prn 03/21/23 -discussed home oxygen with patient due to desaturation, patient states she follows with Myriam BEAN and is always in the mid 80's - mid 90's and refuses home oxygen. Advised follow up with Dr. Miguel for re-evaluation for which patient is agreeable - Vitals & Intake/Output Vital Signs: Vital Signs Temperature 97.4 F 03/21/23 07:30 Pulse Rate 84 03/21/23 07:50 Respiratory Rate 16 03/21/23 07:50 Blood Pressure 109/57 03/21/23 07:30 O2 Sat by Pulse Oximetry 91 L 03/21/23 07:50 Intake & Output: Intake & Output 03/18/23 03/19/23 03/20/23 03/21/23 11:59 11:59 11:59 11:59 Intake Total 1420 1200 240 Output Total 2 Balance 1420 1198 240 Weight 87 kg 87.7 kg 87.7 kg 84.9 kg - Lab Result Diagrams: 03/21/23 04:18 03/21/23 04:18 Lab Results-Last 24 Hrs: Lab Results-Last 24 Hours 03/20/23 03/21/23 03/21/23 Range/Units 05:19 04:18 04:18 WBC 7.9 (4.0-10.5) x10^3/uL RBC 4.63 (4.1-5.4) x10^6/uL Hgb 14.3 (12.0-16.0) g/dL Hct 42.9 (35-47) % MCV 92.7 (78-100) fL MCH 30.9 (26-32) pg MCHC 33.3 (32-36) g/dL RDW 13.5 (11.5-14.0) % Plt Count 228 (150-450) x10^3/uL MPV 11.0 (7.5-11.0) fL Gran % 62.8 (36.0-66.0) % Immature Gran % (Auto) 0.9 H (0.00-0.4) % Nucleat RBC Rel Count 0.0 (0.00-0.1) % Eos # (Auto) 0.11 (0-0.5) x10^3/uL Immature Gran # (Auto) 0.07 H (0.00-0.03) x10^3u/L Absolute Lymphs (auto) 1.26 (1.0-4.6) x10^3/uL Absolute Monos (auto) 1.46 H (0.0-1.3) x10^3/uL Absolute Nucleated RBC 0.00 (0.00-0.01) x10^3u/L Lymphocytes % 15.9 L (24.0-44.0) % Monocytes % 18.5 H (0.0-12.0) % Eosinophils % 1.4 (0.00-5.0) % Basophils % 0.5 (0.0-0.4) % Absolute Granulocytes 4.96 (1.4-6.9) x10^3/uL Basophils # 0.04 (0-0.4) x10^3/uL Sodium 128 L (137-145) mmol/L Potassium 3.0 L* (3.5-5.1) mmol/L Chloride 94 L (98-107) mmol/L Carbon Dioxide 24 (22-30) mmol/L Anion Gap 13.0 (5-15) MEQ/L BUN 19 H (7-17) mg/dL Creatinine 0.73 (0.52-1.04) mg/dL Estimated GFR > 60.0 ML/MIN Glucose 97 (74-106) mg/dL Calcium 7.6 L (8.4-10.2) mg/dL Magnesium (1.6-2.3) mg/dL Total Bilirubin 0.60 (0.2-1.3) mg/dL AST 20 (14-36) U/L ALT 17 (0-35) U/L Alkaline Phosphatase 66 (38-126) U/L Serum Total Protein 5.8 L (6.3-8.2) g/dL Albumin 3.2 L (3.5-5.0) g/dL Slides for Path Review YES 03/21/23 Range/Units 05:08 WBC (4.0-10.5) x10^3/uL RBC (4.1-5.4) x10^6/uL Hgb (12.0-16.0) g/dL Hct (35-47) % MCV (78-100) fL MCH (26-32) pg MCHC (32-36) g/dL RDW (11.5-14.0) % Plt Count (150-450) x10^3/uL MPV (7.5-11.0) fL Gran % (36.0-66.0) % Immature Gran % (Auto) (0.00-0.4) % Nucleat RBC Rel Count (0.00-0.1) % Eos # (Auto) (0-0.5) x10^3/uL Immature Gran # (Auto) (0.00-0.03) x10^3u/L Absolute Lymphs (auto) (1.0-4.6) x10^3/uL Absolute Monos (auto) (0.0-1.3) x10^3/uL Absolute Nucleated RBC (0.00-0.01) x10^3u/L Lymphocytes % (24.0-44.0) % Monocytes % (0.0-12.0) % Eosinophils % (0.00-5.0) % Basophils % (0.0-0.4) % Absolute Granulocytes (1.4-6.9) x10^3/uL Basophils # (0-0.4) x10^3/uL Sodium (137-145) mmol/L Potassium (3.5-5.1) mmol/L Chloride (98-107) mmol/L Carbon Dioxide (22-30) mmol/L Anion Gap (5-15) MEQ/L BUN (7-17) mg/dL Creatinine (0.52-1.04) mg/dL Estimated GFR ML/MIN Glucose (74-106) mg/dL Calcium (8.4-10.2) mg/dL Magnesium 2.1 (1.6-2.3) mg/dL Total Bilirubin (0.2-1.3) mg/dL AST (14-36) U/L ALT (0-35) U/L Alkaline Phosphatase (38-126) U/L Serum Total Protein (6.3-8.2) g/dL Albumin (3.5-5.0) g/dL Slides for Path Review Micro Results-Entire Visit: Microbiology 03/16/23 20:00 Blood Culture - Final Blood 03/16/23 23:15 Blood Culture - Final Blood - Procedures and Test Procedures and Tests throughout Hospitalization: Therapy Orders & Screens 03/16/23 22:54 Respiratory Therapy Assessment DAILY Comment: 03/17/23 04:16 Oxygen Nasal Cannula 3 lpm Comment: Diagnosis: Nausea vomiting diarrhea, dehydration, COPD exacerbation, hypoxia 03/17/23 04:28 Respiratory MDI BID Comment: Diagnosis: Nausea vomiting diarrhea, dehydration, COPD exacerbation, hypoxia 03/17/23 10:40 RT Screen per Nursing Assess ONCE Comment: Protocol Order Physician Instructions: Greater than 3 points order RT Admission Screen Reason For Exam: Triggered on Admission Diagnosis: Nausea vomiting diarrhea, dehydration, COPD exacerbation, hypoxia Diagnosis: Nausea vomiting diarrhea, dehydration, COPD exacerbation, hypoxia Pneumonia: No Home O2: No Asthma: No CHF: Yes Home CPAP/BIPAP: No Home Nebs/MDI: Yes Total Points: 8 <MARCO A JACOBS - Last Filed: 03/21/23 11:46> - Vitals & Intake/Output Vital Signs: Vital Signs Temperature 97.9 F 03/21/23 15:53 Pulse Rate 78 03/21/23 15:53 Respiratory Rate 18 03/21/23 15:53 Blood Pressure 125/58 03/21/23 15:53 O2 Sat by Pulse Oximetry 90 L 03/21/23 15:53 Intake & Output: Intake & Output 03/19/23 03/20/23 03/21/23 03/22/23 11:59 11:59 11:59 11:59 Intake Total 1200 240 240 Output Total 2 Balance 1198 240 240 Weight 87.7 kg 87.7 kg 84.9 kg - Lab Result Diagrams: 03/21/23 04:18 03/21/23 04:18 Lab Results-Last 24 Hrs: Lab Results-Last 24 Hours 03/21/23 03/21/23 03/21/23 Range/Units 04:18 04:18 05:08 WBC 7.9 (4.0-10.5) x10^3/uL RBC 4.63 (4.1-5.4) x10^6/uL Hgb 14.3 (12.0-16.0) g/dL Hct 42.9 (35-47) % MCV 92.7 (78-100) fL MCH 30.9 (26-32) pg MCHC 33.3 (32-36) g/dL RDW 13.5 (11.5-14.0) % Plt Count 228 (150-450) x10^3/uL MPV 11.0 (7.5-11.0) fL Gran % 62.8 (36.0-66.0) % Immature Gran % (Auto) 0.9 H (0.00-0.4) % Nucleat RBC Rel Count 0.0 (0.00-0.1) % Eos # (Auto) 0.11 (0-0.5) x10^3/uL Immature Gran # (Auto) 0.07 H (0.00-0.03) x10^3u/L Absolute Lymphs (auto) 1.26 (1.0-4.6) x10^3/uL Absolute Monos (auto) 1.46 H (0.0-1.3) x10^3/uL Absolute Nucleated RBC 0.00 (0.00-0.01) x10^3u/L Lymphocytes % 15.9 L (24.0-44.0) % Monocytes % 18.5 H (0.0-12.0) % Eosinophils % 1.4 (0.00-5.0) % Basophils % 0.5 (0.0-0.4) % Absolute Granulocytes 4.96 (1.4-6.9) x10^3/uL Basophils # 0.04 (0-0.4) x10^3/uL Sodium 128 L (137-145) mmol/L Potassium 3.0 L* (3.5-5.1) mmol/L Chloride 94 L (98-107) mmol/L Carbon Dioxide 24 (22-30) mmol/L Anion Gap 13.0 (5-15) MEQ/L BUN 19 H (7-17) mg/dL Creatinine 0.73 (0.52-1.04) mg/dL Estimated GFR > 60.0 ML/MIN Glucose 97 (74-106) mg/dL Calcium 7.6 L (8.4-10.2) mg/dL Magnesium 2.1 (1.6-2.3) mg/dL Total Bilirubin 0.60 (0.2-1.3) mg/dL AST 20 (14-36) U/L ALT 17 (0-35) U/L Alkaline Phosphatase 66 (38-126) U/L Serum Total Protein 5.8 L (6.3-8.2) g/dL Albumin 3.2 L (3.5-5.0) g/dL Micro Results-Entire Visit: Microbiology 03/16/23 20:00 Blood Culture - Final Blood 03/16/23 23:15 Blood Culture - Final Blood - Procedures and Test Procedures and Tests throughout Hospitalization: Therapy Orders & Screens 03/16/23 22:54 Respiratory Therapy Assessment DAILY Comment: 03/17/23 04:16 Oxygen Nasal Cannula 3 lpm Comment: Diagnosis: Nausea vomiting diarrhea, dehydration, COPD exacerbation, hypoxia 03/17/23 04:28 Respiratory MDI BID Comment: Diagnosis: Nausea vomiting diarrhea, dehydration, COPD exacerbation, hypoxia 03/17/23 10:40 RT Screen per Nursing Assess ONCE Comment: Protocol Order Physician Instructions: Greater than 3 points order RT Admission Screen Reason For Exam: Triggered on Admission Diagnosis: Nausea vomiting diarrhea, dehydration, COPD exacerbation, hypoxia Diagnosis: Nausea vomiting diarrhea, dehydration, COPD exacerbation, hypoxia Pneumonia: No Home O2: No Asthma: No CHF: Yes Home CPAP/BIPAP: No Home Nebs/MDI: Yes Total Points: 8 <,JEREMY - Last Filed: 03/21/23 17:13> Discharge Exam General Appearance: no apparent distress Neurologic Exam: oriented x 3 Eye Exam: PERRL Respiratory Exam: normal breath sounds Cardiovascular Exam: regular rate/rhythm Gastrointestinal/Abdomen Exam: soft, normal bowel sounds Extremity Exam: normal inspection Skin Exam: normal color, warm, dry <MARCO A JACOBS - Last Filed: 03/21/23 11:46> Final Diagnosis/Problem List - Final Discharge Diagnosis/Problem (1) Nausea vomiting and diarrhea Current Visit: Yes Status: Resolved Code(s): R11.2 - NAUSEA WITH VOMITING, UNSPECIFIED; R19.7 - DIARRHEA, UNSPECIFIED (2) Leukocytosis Current Visit: Yes Status: Acute Code(s): D72.829 - ELEVATED WHITE BLOOD CELL COUNT, UNSPECIFIED (3) Hyponatremia Current Visit: Yes Status: Resolved Code(s): E87.1 - HYPO-OSMOLALITY AND HYPONATREMIA (4) Hypokalemia Current Visit: Yes Status: Acute Code(s): E87.6 - HYPOKALEMIA (5) Generalized weakness Current Visit: Yes Status: Resolved Code(s): R53.1 - WEAKNESS (6) Hypertension Current Visit: No Status: Chronic Code(s): I10 - ESSENTIAL (PRIMARY) HYPERTENSION (7) COPD (chronic obstructive pulmonary disease) Current Visit: Yes Status: Chronic (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 I agree with the assessment, and treatment plan as descri bed in her original note. Please see below for my summary of findings and any additional assessment and plan, as well as any meaningful corrections or explanations of their note. My portion of visit was conducted entirely via telemedicine. 77-year-old woman, admitted with nausea, vomiting, and diarrhea, felt to have gastroenteritis. C. difficile assay was negative. She was tolerating diet prior to discharge. She was initially refusing potassium supplementation, but was eventually agreeable to IV potassium. However, she declined going home with oral potassium until she follows up with Dr. Bello, as she feels she cannot tolerate the oral tablets as they give her more gastritis. She also declined home oxygen, said that her oxygen levels are was around 88%, and she will follow-up with Dr. Rivera to discuss it further. Jeremy Mcclain MD, PhD Internal Medicine Hospitalist [facility] <JEREMY MCCLAIN - Last Filed: 03/21/23 17:13> <MARCO A JACOBS - Last Filed: 03/21/23 11:46> <JEREMY MCCLAIN - Last Filed: 03/21/23 17:13> - Discharge Disposition: Home, Self-Care Condition: Stable Prescriptions: New Potassium Chloride Tab* [Klor Con] 40 meq PO DAILY 2 Days #2 tablet Loperamide HCl 2 mg [Imodium 2 mg] 2 mg PO Q2H PRN 7 Days #24 cap PRN Reason: Diarrhea Continue Fluticasone/Vilanterol [Breo Ellipta 100-25 Mcg INH] 1 each IH UD Amlodipine Besylate 5 mg [Norvasc 5 mg] 5 mg PO QHS Lisinopril 5 mg [Zestril 5 MG] 5 mg PO DAILY Ibandronate Sodium [Boniva] 150 mg PO UD Outpatient Orders: BMP Time Frame: 3 Days, Facility: [facility]. Hosp, Location: LABORATORY Instructions: Hypokalemia (DC) Follow up with: LIBBY RIVERA [ACTIVE STAFF] - 03/28/23 2:30 pm (Appointment at [facility]) ELIZABETH BELLO MD [Primary Care Provider] - 04/01/23 9:15 am ([place] Office)
[2023-03-21 15:56] VITALS: BP 125/58; PULSE 78; RESP 18; TEMP 97.9; O2SAT 90
== END 2023-03-21 18:19 | disposition home or self-care (01) ==
LOC: ED 19:27 → MED SURG 03-17 02:24
PROVIDERS: ADMIT Student in an Organized Health Care Education/Training Program; ATTEND Student in an Organized Health Care Education/Training Program
DX: R11.2 Nausea with vomiting, unspecified (principal); R19.7 Diarrhea, unspecified; D72.829 Elevated white blood cell count, unspecified; E87.1 Hypo-osmolality and hyponatremia; R53.1 Weakness; I10 Essential (primary) hypertension; J44.9 Chronic obstructive pulmonary disease, unspecified; J84.10 Pulmonary fibrosis, unspecified; E87.6 Hypokalemia; E86.0 Dehydration; Z79.899 Other long term (current) drug therapy; Z20.828 Contact with and (suspected) exposure to other viral communicable diseases
CPT/HCPCS: 0241U; 36000; 36415; 71045; 71260; 74018; 74177; 80048; 80053; 80061; 81001; 83605; 83690; 83721; 83735; 83880; 83930; 84132; 84300; 84443; 84484; 85025; 85027; 85379; 87040; 87493; 93005; 93041; 94640; 94760; 94762; 96360; 96361; 96374; 99285; P9612; Q3014; J1885; J2405; J2930; J3480; J7609; A9270-GY

== ENCOUNTER 2023-07-15 18:17 | Observation (INO) | payer MEDICARE ==
[2023-07-15] MEDS ORDERED: PYRIDIUM 200 MG PO ONE (18:43)
[2023-07-15] MEDS ORDERED: PYRIDIUM 200 MG ONE (18:45)
--- NOTE | 2023-07-15 18:50 | ERPHSYRPT ---
- History of Present Illness Source: patient, other (Friend) Exam Limitations: no limitations Patient Subjective Stated Complaint: PT states "I have a horrible UTI." Triage Nursing Assessment: Pt presented alert and oriented X 3, skin pwd. Pt moaning and grunting holding her groing and moaning. Physician History: Patient is a 77-year-old female who has had dysuria for for 1 week. She also has increased frequency and moderate suprapubic pain. Patient saw Dr. Bello Earlier this week and was started on Cipro on Tuesday, Tuesday and Tuesday. She denies fever, nausea, diarrhea, and hematuria. Patient has multiple medical allergies. Patient was accompanied to the ER by a friend. Timing/Duration: other (1 week) Activites at Onset: none Quality: pressure (Suprapubic pressure) Onset Location: suprapubic Pain Radiation: none Modifying Factors: Improves With: urinating (Worse with urination) Associated Symptoms: denies symptoms Allergies/Adverse Reactions: moxifloxacin HCl [From Avelox] Allergy (Severe, Verified 03/17/23 03:29) Hives oseltamivir [From Tamiflu] Allergy (Severe, Verified 03/16/23 19:34) Swelling of Face Sulfa (Sulfonamide Antibiotics) Allergy (Mild, Verified 03/17/23 03:30) Hives codeine Allergy (Verified 03/17/23 03:30) Hives Penicillins Allergy (Verified 03/17/23 03:30) Hives Home Medications: Fluticasone/Vilanterol [Breo Ellipta 100-25 Mcg Inhalr] 1 each IH UD 11/16/16 [History] Amlodipine Besylate 5 mg [Norvasc 5 mg] 5 mg PO QHS 07/22/22 [History] Ibandronate Sodium [Boniva] 150 mg PO UD 07/22/22 [History] Lisinopril 5 mg [Zestril 5 MG] 5 mg PO DAILY 07/22/22 [History] Ciprofloxacin [Cipro 500 MG] 500 mg PO UD 07/15/23 [History] Hx Tetanus, Diphtheria Vaccination/Date Given: No Hx Influenza Vaccination/Date Given: No Hx Pneumococcal Vaccination/Date Given: No Travel Risk - International Travel Have you traveled outside of the country in past 3 weeks: No - Coronavirus Screening Are you exhibiting any of the following symptoms?: No Close contact with a COVID-19 positive Pt in past 14-21 Days: No - Vaccine Status Have you recieved a Covid-19 vaccination: Yes Collection Team Lead: Moderna - Vaccination Dates Date of 2cond Vaccination (if applicable): 2020 - Review of Systems Constitutional: No Symptoms Eyes: No Symptoms Ears, Nose, & Throat: No Symptoms Respiratory: No Symptoms Cardiac: No Symptoms Abdominal/Gastrointestinal: Abdominal Pain (Suprapubic pressure.) Genitourinary Symptoms: Dysuria, Frequency, Urgency Musculoskeletal: No Symptoms Skin: No Symptoms Neurological: No Symptoms Psychological: No Symptoms Endocrine: No Symptoms Hematologic/Lymphatic: No Symptoms Immunological/Allergic: No Symptoms - Past Medical History Pertinent Past Medical History: Yes Neurological History: No Pertinent History ENT History: No Pertinent History Cardiac History: Hypertension Respiratory History: COPD Endocrine Medical History: No Pertinent History Musculoskeletal History: No Pertinent History GI Medical History: No Pertinent History History: No Pertinent History Psycho-Social History: No Pertinent History Female Reproductive Disorders: No Pertinent History - Past Surgical History Past Surgical History: Yes Neuro Surgical History: No Pertinent History Cardiac: No Pertinent History Respiratory: No Pertinent History Gastrointestinal: No Pertinent History Genitourinary: No Pertinent History Musculoskeletal: Other Female Surgical History: Hysterectomy Other Surgical History: knee scope - Social History Smoking Status: Former smoker How long have you smoked: 46 Exposure to second hand smoke: No Drug Use: none Patient Lives Alone: No - Nursing Vital Signs Nursing Vital Signs: Initial Vital Signs Temperature 97.8 F 07/15/23 18:19 Pulse Rate 91 H 07/15/23 18:19 Respiratory Rate 22 07/15/23 18:19 Blood Pressure 146/73 07/15/23 18:19 O2 Sat by Pulse Oximetry 93 L 07/15/23 18:19 Pain Scale Pain Intensity 9 Mildly hypertensive. Borderline sats. - Physical Exam General Appearance: no apparent distress (Patient looks like she is uncomfortable but in no apparent distress.) Eye Exam: PERRL/EOMI, eyes nml inspection Ears, Nose, Throat Exam: normal ENT inspection, TMs normal, pharynx normal, moist mucous membranes Neck Exam: normal inspection, non-tender, supple, full range of motion, No meningismus, No mass, No Brudzinski, No Kernig's, No carotid bruit Respiratory Exam: normal breath sounds, lungs clear, airway intact Cardiovascular Exam: regular rate/rhythm, normal heart sounds, normal peripheral pulses, capillary refill <2 sec, No murmur Gastrointestinal/Abdomen Exam: soft, normal bowel sounds, tenderness (Mild suprapubic tenderness to palpation without guarding or rebound.) Pelvic Exam: other (Mild erythema of the labia majora and minora without any obvious skin breakdown or yeast.) Back Exam: normal inspection, normal range of motion, No CVA tenderness, No vertebral tenderness Extremity Exam: normal inspection, normal range of motion Neurologic Exam: alert, oriented x 3, cooperative, erector operator II-XII nml as tested, normal mood/affect, nml station & gait, sensation nml Skin Exam: normal color, warm, dry Lymphatic Exam: No adenopathy SpO2 Interpretation: borderline oxygenation SpO2: 93 O2 Delivery: Room Air - CT Exams Abdomen/Pelvis CT Interpretation: Discussed w/radiologist (CT abdomen pelvis without contrast- air bubble and urinary bladder iatrogenic versus gas-forming bacteria/stable small hiatal hernia/nonobstructing left renal punctate calculus and scattered diverticulosis.) Ordered Tests: Active Orders 24 hr Category Date Time Status IV Insertion STAT Care 07/15/23 19:13 Active ABDOMEN AND PELVIS W/0 CONTRAS [CT] Stat Exams 07/15/23 19:47 Taken CBC W DIFF Stat Lab 07/15/23 19:25 Completed CMP Stat Lab 07/15/23 19:25 Completed CULTURE,URINE Stat Lab 07/15/23 18:42 Received Lactic Acid Stat Lab 07/15/23 19:27 Completed UA W/RFX UR CULTURE Stat Lab 07/15/23 18:42 Completed Transfer Order Routine Transfer 07/15/23 Ordered Medication Summary Generic Name Dose Route Start Last Admin Trade Name Freq PRN Reason Stop Dose Admin Amlodipine Besylate 5 mg 07/16/23 22:00 Amlodipine Besylate 5 Mg Tablet PO 08/15/23 21:59 QHS MATTHEW Lisinopril 5 mg 07/16/23 10:00 Lisinopril 5 Mg Tablet PO 08/15/23 09:59 DAILY MATTHEW Loperamide HCl 2 mg 07/15/23 22:19 Loperamide Hcl 2 Mg Capsule PO 08/14/23 22:18 Q2H PRN DIARRHEA Non-Formulary Medication 1 each 07/15/23 22:30 Fluticasone/Vilanterol [Breo Ellipta 100-25 Mcg Inhalr] IH 08/14/23 22:29 UD MATTHEW Non-Formulary Medication 150 mg 07/15/23 22:30 Ibandronate Sodium [Boniva] PO 08/14/23 22:29 UD MATTHEW Potassium Chloride 40 meq 07/16/23 10:00 Potassium Chloride Tab 10 Meq Tab PO 08/15/23 09:59 DAILY MATTHEW Discontinued Medications Generic Name Dose Route Start Last Admin Trade Name Freq PRN Reason Stop Dose Admin Fentanyl Citrate 25 mcg 07/15/23 19:45 07/15/23 19:51 Fentanyl Citrate 100 Mcg/2 Ml* Vial IV 07/15/23 19:46 25 mcg STAT ONE Administration Fentanyl Citrate Confirm 07/15/23 19:49 Fentanyl Citrate 100 Mcg/2 Ml* Vial Administered 07/15/23 19:50 Dose 100 mcg .ROUTE .STK-MED ONE Fentanyl Citrate 50 mcg 07/15/23 20:26 07/15/23 20:31 Fentanyl Citrate 100 Mcg/2 Ml* Vial IV 07/15/23 20:27 50 mcg STAT ONE Administration Fentanyl Citrate Confirm 07/15/23 20:29 Fentanyl Citrate 100 Mcg/2 Ml* Vial Administered 07/15/23 20:30 Dose 100 mcg .ROUTE .STK-MED ONE Ceftriaxone Sodium/Dextrose 1 g in 50 mls @ 100 mls/hr 07/15/23 19:46 07/15/23 20:23 Rocephin 1 Gm-D5w 50 Ml Bag IV 07/15/23 20:15 Infused STAT STA Infusion Ceftriaxone Sodium/Dextrose Confirm 07/15/23 19:49 Rocephin 1 Gm-D5w 50 Ml Bag Administered 07/15/23 19:50 Dose 1 g in 50 mls @ ud IV .STK-MED ONE Ketorolac Tromethamine 15 mg 07/15/23 21:58 07/15/23 22:04 Ketorolac Tromethamine 30 Mg/Ml Inj IV 07/15/23 21:59 15 mg STAT ONE Administration Ketorolac Tromethamine Confirm 07/15/23 22:02 Ketorolac Tromethamine 30 Mg/Ml Inj Administered 07/15/23 22:03 Dose 30 mg .ROUTE .STK-MED ONE Lorazepam 1 mg 07/15/23 21:15 07/15/23 21:20 Lorazepam 2 Mg/1 Ml 2 Mg Vial IV 07/15/23 21:16 1 mg STAT ONE Administration Lorazepam Confirm 07/15/23 21:19 Lorazepam 2 Mg/1 Ml 2 Mg Vial Administered 07/15/23 21:20 Dose 2 mg .ROUTE .STK-MED ONE Ondansetron HCl 4 mg 07/15/23 19:45 07/15/23 19:51 Ondansetron Hcl 4 Mg/2 Ml Vial IV 07/15/23 19:46 4 mg STAT ONE Administration Ondansetron HCl Confirm 07/15/23 19:48 Ondansetron Hcl 4 Mg/2 Ml Vial Administered 07/15/23 19:49 Dose 4 mg .ROUTE .STK-MED ONE Phenazopyridine HCl 200 mg 07/15/23 18:43 07/15/23 18:47 Phenazopyridine Hcl 200 Mg Tablet PO 07/15/23 18:44 200 mg STAT ONE Administration Phenazopyridine HCl Confirm 07/15/23 18:45 Phenazopyridine Hcl 200 Mg Tablet Administered 07/15/23 18:46 Dose 200 mg .ROUTE .STK-MED ONE Lab/Rad Data: Laboratory Result Diagrams 07/15/23 19:25 07/15/23 19:25 Laboratory Results 07/15/23 07/15/23 07/15/23 Range/Units 19:27 19:25 19:25 WBC 12.2 H (4.0-10.5) x10^3/uL RBC 4.87 (4.1-5.4) x10^6/uL Hgb 15.0 (12.0-16.0) g/dL Hct 45.7 (35-47) % MCV 93.8 (78-100) fL MCH 30.8 (26-32) pg MCHC 32.8 (32-36) g/dL RDW 13.2 (11.5-14.0) % Plt Count 316 (150-450) x10^3/uL MPV 10.2 (7.5-11.0) fL Gran % 65.2 (36.0-66.0) % Immature Gran % (Auto) 0.9 H (0.00-0.4) % Nucleat RBC Rel Count 0.0 (0.00-0.1) % Eos # (Auto) 0.14 (0-0.5) x10^3/uL Immature Gran # (Auto) 0.11 H (0.00-0.03) x10^3u/L Absolute Lymphs (auto) 2.78 (1.0-4.6) x10^3/uL Absolute Monos (auto) 1.13 (0.0-1.3) x10^3/uL Absolute Nucleated RBC 0.00 (0.00-0.01) x10^3u/L Lymphocytes % 22.9 L (24.0-44.0) % Monocytes % 9.3 (0.0-12.0) % Eosinophils % 1.2 (0.00-5.0) % Basophils % 0.5 (0.0-0.4) % Absolute Granulocytes 7.94 H (1.4-6.9) x10^3/uL Basophils # 0.06 (0-0.4) x10^3/uL Sodium 129 L (137-145) mmol/L Potassium 4.0 (3.5-5.1) mmol/L Chloride 97 L (98-107) mmol/L Carbon Dioxide 23 (22-30) mmol/L Anion Gap 13.0 (5-15) MEQ/L BUN 19 H (7-17) mg/dL Creatinine 0.63 (0.52-1.04) mg/dL Estimated GFR 90.7 ML/MIN Glucose 101 (74-106) mg/dL Lactic Acid 1.1 (0.4-2.0) Calcium 9.0 (8.4-10.2) mg/dL Total Bilirubin 0.40 (0.2-1.3) mg/dL AST 28 (14-36) U/L ALT 21 (0-35) U/L Alkaline Phosphatase 80 (38-126) U/L Serum Total Protein 7.5 (6.3-8.2) g/dL Albumin 4.2 (3.5-5.0) g/dL Urine Color (Yellow) Urine Appearance (Clear) Urine pH (4.6-8.0) Ur Specific [place] (1.005-1.030) Urine Protein (Negative) Urine Glucose (UA) (Negative) mg/dL Urine Ketones (Negative) Urine Blood (Negative) Urine Nitrite (Negative) Urine Bilirubin (Negative) Urine Urobilinogen (0.2) mg/dL Ur Leukocyte Esterase (Negative) U Hyaline Cast (Auto) (0-2) /LPF Urine Microscopic RBC (0-5) /HPF Urine Microscopic WBC (0-5) /HPF Ur Epithelial Cells (None Seen) /HPF Urine Bacteria (None Seen) /HPF Urine Culture Reflexed (NO) 07/15/23 Range/Units 18:42 WBC (4.0-10.5) x10^3/uL RBC (4.1-5.4) x10^6/uL Hgb (12.0-16.0) g/dL Hct (35-47) % MCV (78-100) fL MCH (26-32) pg MCHC (32-36) g/dL RDW (11.5-14.0) % Plt Count (150-450) x10^3/uL MPV (7.5-11.0) fL Gran % (36.0-66.0) % Immature Gran % (Auto) (0.00-0.4) % Nucleat RBC Rel Count (0.00-0.1) % Eos # (Auto) (0-0.5) x10^3/uL Immature Gran # (Auto) (0.00-0.03) x10^3u/L Absolute Lymphs (auto) (1.0-4.6) x10^3/uL Absolute Monos (auto) (0.0-1.3) x10^3/uL Absolute Nucleated RBC (0.00-0.01) x10^3u/L Lymphocytes % (24.0-44.0) % Monocytes % (0.0-12.0) % Eosinophils % (0.00-5.0) % Basophils % (0.0-0.4) % Absolute Granulocytes (1.4-6.9) x10^3/uL Basophils # (0-0.4) x10^3/uL Sodium (137-145) mmol/L Potassium (3.5-5.1) mmol/L Chloride (98-107) mmol/L Carbon Dioxide (22-30) mmol/L Anion Gap (5-15) MEQ/L BUN (7-17) mg/dL Creatinine (0.52-1.04) mg/dL Estimated GFR ML/MIN Glucose (74-106) mg/dL Lactic Acid (0.4-2.0) Calcium (8.4-10.2) mg/dL Total Bilirubin (0.2-1.3) mg/dL AST (14-36) U/L ALT (0-35) U/L Alkaline Phosphatase (38-126) U/L Serum Total Protein (6.3-8.2) g/dL Albumin (3.5-5.0) g/dL Urine Color Yellow (Yellow) Urine Appearance Turbid A (Clear) Urine pH 5.5 (4.6-8.0) Ur Specific [place] 1.020 (1.005-1.030) Urine Protein 300 A (Negative) Urine Glucose (UA) Negative (Negative) mg/dL Urine Ketones Trace A (Negative) Urine Blood Moderate A (Negative) Urine Nitrite Positive A (Negative) Urine Bilirubin Negative (Negative) Urine Urobilinogen 1.0 A (0.2) mg/dL Ur Leukocyte Esterase Large A (Negative) U Hyaline Cast (Auto) NONE SEEN (0-2) /LPF Urine Microscopic RBC 3-5 (0-5) /HPF Urine Microscopic WBC >100 A (0-5) /HPF Ur Epithelial Cells None Seen (None Seen) /HPF Urine Bacteria Many A (None Seen) /HPF Urine Culture Reflexed YES (NO) - Progress Progress: improved Progress Note: 07/15/23 21:59 Nursing note and vital signs reviewed. No food or housing insecurities noted. All lab results reviewed and shared with patient. Additional history per son. CT result reviewed and shared with patient. Patient given 1 g IV Rocephin for her urinary tract infection. Patient also given fentanyl 25 mcg / 4 mg IV Zofran with subsequent 50 mcg IV fentanyl with minimal relief of her pain. 1 mg IV Ativan also given. 15 mg IV Toradol given before transfer to floor. Admit per Dr. Matamoros. Patient with observational admit due to marked suprapubic pain which is uncontro lled with narcotic medications. Antibiotics given: Yes Discussed with Dr.: Other Counseled pt/family regarding: lab results, diagnosis, rad results Medical Desision Making - Independent Historian Additional History obtained from: Child - Discussion of managment Care discussed with:: hospitalist Reviewed:: Test results Agreed on:: place in obs Will see patient: in hospital - Diagnostic Testing Diagnostic test were ordered, analyzed, and reviewed by me: Yes Radiological Interpretation: Reviewed by me - Risk of complications The pt has a high risk of morbidity or mortality based on: Drug therapy requiring intensive monitoring for toxicity - Departure Departure Disposition: Observation Clinical Impression: UTI (urinary tract infection) Condition: Stable Critical Care Time: No Referrals: ELIZABETH BELLO MD [Primary Care Provider] - Follow up/PCP as directed
[2023-07-15 18:56] LABS: Appearance Turbid (Clear); Bilirubin Negative (Negative); Blood Moderate (Negative); Glucose, Urine Negative (Negative); Ketones Trace (Negative); Leukocyte Esterase Large (Negative); Nitrite Positive (Negative); Ph 5.5 (4.6-8.0); Protein,Urine Dip 300 (Negative)
[2023-07-15 19:06] LABS: ADD URINE CULTURE? YES (NO); Bacteria Many /HPF (None Seen); Epithelial Cells None Seen /HPF (None Seen); Hyaline Casts NONE SEEN /LPF (0-2); WBC >100 /HPF (0-5)
[2023-07-15 19:30] LABS: Absolute Neutrophil Ct (ANC) 7.94 x10^3/uL (1.4-6.9); BASOPHIL % 0.5 % (0.0-0.4); Basophil (Absolute #) 0.06 x10^3/uL (0-0.4); Eosinophil % 1.2 % (0.00-5.0); Eosinophil (Absolute #) 0.14 x10^3/uL (0-0.5); Hematocrit 45.7 % (35-47); IMMATURE GRAN # 0.11 x10^3u/L (0.00-0.03); IMMATURE GRAN % 0.9 % (0.00-0.4); Lymphocyte (Absolute #) 2.78 x10^3/uL (1.0-4.6); Lymphocytes % 22.9 % (24.0-44.0); Mean Cell Volume 93.8 fL (78-100); Mean Corpuscular Hemoglobin 30.8 pg (26-32); Mean Corpuscular Hgb Concent. 32.8 g/dL (32-36); Mean Platelet Volume 10.2 fL (7.5-11.0); Monocyte (Absolute #) 1.13 x10^3/uL (0.0-1.3); Monocytes % 9.3 % (0.0-12.0); Neutrophil % 65.2 % (36.0-66.0); Platelet Count 316 x10^3/uL (150-450); Red Blood Count 4.87 x10^6/uL (4.1-5.4); Red Cell Distribution Width 13.2 % (11.5-14.0); White Blood Count 12.2 x10^3/uL (4.0-10.5)
[2023-07-15] MEDS ORDERED: Zofran 4 MG/2 ML VIAL IV ONE (19:45)
[2023-07-15] MEDS ORDERED: SUBLIMAZE 100 MCG/2 ML IV ONE ×2 (19:45→20:26)
[2023-07-15 19:46] LABS: ALBUMIN 4.2 g/dL (3.5-5.0); BILIRUBIN,TOTAL 0.4 mg/dL (0.2-1.3); Creatinine 1 0.63 mg/dL (0.52-1.04); EST GLOMERULAR FILTRATION RATE 90.7 ML/MIN; Total Protein 7.5 g/dL (6.3-8.2)
[2023-07-15] MEDS ORDERED: ROCEPHIN 1 Gm-D5w 50 ml Bag** 1 G/50 ML IVPB IV STA (19:46)
[2023-07-15] MEDS ORDERED: Zofran 4 MG/2 ML VIAL ONE (19:48)
[2023-07-15] MEDS ORDERED: SUBLIMAZE 100 MCG/2 ML ONE ×2 (19:49→20:29)
[2023-07-15] MEDS ORDERED: ROCEPHIN 1 Gm-D5w 50 ml Bag** 1 G/50 ML IVPB IV ONE (19:49)
[2023-07-15] MEDS ORDERED: Ativan 2 MG/1 ML VIAL IV ONE (21:15)
[2023-07-15] MEDS ORDERED: Ativan 2 MG/1 ML VIAL ONE (21:19)
[2023-07-15] MEDS ORDERED: TORAdol 30 mg Injection IV ONE (21:58)
[2023-07-15] MEDS ORDERED: TORAdol 30 mg Injection ONE (22:02)
[2023-07-15] MEDS ORDERED: IMODIUM 2 MG PO PRN (22:19)
[2023-07-15] MEDS ORDERED: TYLENOL 325 MG PO PRN (22:20)
[2023-07-15] MEDS ORDERED: Zofran 4 MG/2 ML VIAL IV PRN (22:24)
[2023-07-15] MEDS ORDERED: Ativan 0.5 MG PO PRN (22:25)
[2023-07-15] MEDS ORDERED: [UNRECOGNIZED DRUG - OTHER] IH SCH (22:30)
--- NOTE | 2023-07-15 22:31 | PCM.HP ---
History of Present Illness - Chief Complaint Chief Complaint: UTI History of Present Illness: is a 77 year old female with history of HTN, Osteoporosis, COPD presented tonight with flank pain and groin pain. She was here earlier in the week with UTI complaints - sent home with cipro to be taken MWF but felt no better. Came in with continue and worsening pevlic pain. ER performed pelvic exam, saw only superficial excoriation in the vaginal area - no other acute finding. ER gave pain meds and Ativan, but pt remains in distress due to "pain". So she is coming in for UTI with intractable pain. Denies fever, chills, hematuria, SOB, chest pain, nausea, vomiting or diarrhea I am seeing her via telemedicine - Review of Systems Constitutional: No Symptoms Eyes: No Symptoms Ears, Nose, & Throat: No Symptoms Respiratory: No Symptoms Cardiac: No Symptoms Abdominal/Gastrointestinal: No Symptoms Genitourinary Symptoms: Dysuria, Flank Pain, Other (vaginal/groin pain) Musculoskeletal: No Symptoms Skin: No Symptoms Neurological: No Symptoms Psychological: No Symptoms Endocrine: No Symptoms Hematologic/Lymphatic: No Symptoms Immunological/Allergic: No Symptoms Medications & Allergies Home Medications: Home Medication List Fluticasone/Vilanterol [Breo Ellipta 100-25 Mcg Inhalr] 1 each IH UD 11/16/16 [History Confirmed 07/15/23] Amlodipine Besylate 5 mg [Norvasc 5 mg] 5 mg PO QHS 07/22/22 [History Confirmed 07/15/23] Ibandronate Sodium [Boniva] 150 mg PO UD 07/22/22 [History Confirmed 07/15/23] Lisinopril 5 mg [Zestril 5 MG] 5 mg PO DAILY 07/22/22 [History Confirmed 07/15/23] Potassium Chloride Tab* [Klor Con] 40 meq PO DAILY 2 Days #2 tablet 03/18/23 [Rx Confirmed 07/15/23] Loperamide HCl 2 mg [Imodium 2 mg] 2 mg PO Q2H PRN 7 Days #24 cap 03/21/23 [Rx Confirmed 07/15/23] Ciprofloxacin [Cipro 500 MG] 500 mg PO UD 07/15/23 [History Confirmed 07/15/23] Allergies/Adverse Reactions: Allergies Allergy/AdvReac Type Severity Reaction Status Date / Time moxifloxacin HCl Allergy Severe Hives Verified 03/17/23 03:29 [From Avelox] oseltamivir [From Tamiflu] Allergy Severe Swelling Verified 03/16/23 19:34 of Face Sulfa (Sulfonamide Allergy Mild Hives Verified 03/17/23 03:30 Antibiotics) codeine Allergy Hives Verified 03/17/23 03:30 Penicillins Allergy Hives Verified 03/17/23 03:30 - Past Medical History Past Medical History: Yes Neurological History: No Pertinent History ENT History: No Pertinent History Cardiac History: Hypertension Respiratory History: COPD Endocrine Medical History: No Pertinent History Musculoskelatal History: No Pertinent History GI Medical History: No Pertinent History History: No Pertinent History Pyscho-Social History: No Pertinent History Reproductive Disorders: No Pertinent History - Past Surgical History Past Surgical History: Yes Neuro Surgical History: No Pertinent History Cardiac History: No Pertinent History Respiratory Surgery: No Pertinent History GI Surgical History: No Pertinent History Genitourinary Surgical Hx: No Pertinent History Musculskeletal Surgical Hx: Other Female Surgical History: Hysterectomy Other Surgical History: knee scope - Social History Smoking Status: Former smoker How long have you smoked: 46 Exposure to second hand smoke: No Alcohol: None Drug Use: none Significant Family History: no pertinent family hx - Physical Exam Vital Signs: Vital Signs - 24 hr Temp Pulse Resp BP BP Pulse Ox 07/15/23 22:22 93 L 07/15/23 22:00 70 18 133/73 93 L 07/15/23 21:30 73 20 121/68 94 L 07/15/23 21:00 79 114/40 95 07/15/23 20:37 110/57 07/15/23 20:30 130/63 95 07/15/23 20:29 95 07/15/23 20:20 95 07/15/23 20:11 94 L 07/15/23 19:30 106 H 23 114/65 96 07/15/23 19:20 105 H 17 140/86 96 07/15/23 19:19 92 L 07/15/23 19:06 92 L 07/15/23 18:19 97.8 F 91 H 22 146/73 93 L General Appearance: moderate distress Neurologic Exam: alert, oriented x 3, cooperative Eye Exam: PERRL/EOMI, eyes nml inspection Ears, Nose, Throat Exam: normal ENT inspection Neck Exam: normal inspection, non-tender, supple, full range of motion Respiratory Exam: normal breath sounds, lungs clear Cardiovascular Exam: regular rate/rhythm, normal heart sounds Gastrointestinal/Abdomen Exam: soft, normal bowel sounds Pelvic Exam: deferred Rectal Exam: deferred Extremity Exam: normal inspection, normal range of motion Skin Exam: normal color, warm, dry Results - Labs Lab/Micro Results: Lab Results-Last 24 Hours 07/15/23 07/15/23 07/15/23 Range/Units 18:42 19:25 19:25 WBC 12.2 H (4.0-10.5) x10^3/uL RBC 4.87 (4.1-5.4) x10^6/uL Hgb 15.0 (12.0-16.0) g/dL Hct 45.7 (35-47) % MCV 93.8 (78-100) fL MCH 30.8 (26-32) pg MCHC 32.8 (32-36) g/dL RDW 13.2 (11.5-14.0) % Plt Count 316 (150-450) x10^3/uL MPV 10.2 (7.5-11.0) fL Gran % 65.2 (36.0-66.0) % Immature Gran % (Auto) 0.9 H (0.00-0.4) % Nucleat RBC Rel Count 0.0 (0.00-0.1) % Eos # (Auto) 0.14 (0-0.5) x10^3/uL Immature Gran # (Auto) 0.11 H (0.00-0.03) x10^3u/L Absolute Lymphs (auto) 2.78 (1.0-4.6) x10^3/uL Absolute Monos (auto) 1.13 (0.0-1.3) x10^3/uL Absolute Nucleated RBC 0.00 (0.00-0.01) x10^3u/L Lymphocytes % 22.9 L (24.0-44.0) % Monocytes % 9.3 (0.0-12.0) % Eosinophils % 1.2 (0.00-5.0) % Basophils % 0.5 (0.0-0.4) % Absolute Granulocytes 7.94 H (1.4-6.9) x10^3/uL Basophils # 0.06 (0-0.4) x10^3/uL Sodium 129 L (137-145) mmol/L Potassium 4.0 (3.5-5.1) mmol/L Chloride 97 L (98-107) mmol/L Carbon Dioxide 23 (22-30) mmol/L Anion Gap 13.0 (5-15) MEQ/L BUN 19 H (7-17) mg/dL Creatinine 0.63 (0.52-1.04) mg/dL Estimated GFR 90.7 ML/MIN Glucose 101 (74-106) mg/dL Lactic Acid (0.4-2.0) Calcium 9.0 (8.4-10.2) mg/dL Total Bilirubin 0.40 (0.2-1.3) mg/dL AST 28 (14-36) U/L ALT 21 (0-35) U/L Alkaline Phosphatase 80 (38-126) U/L Serum Total Protein 7.5 (6.3-8.2) g/dL Albumin 4.2 (3.5-5.0) g/dL Urine Color Yellow (Yellow) Urine Appearance Turbid A (Clear) Urine pH 5.5 (4.6-8.0) Ur Specific [place] 1.020 (1.005-1.030) Urine Protein 300 A (Negative) Urine Glucose (UA) Negative (Negative) mg/dL Urine Ketones Trace A (Negative) Urine Blood Moderate A (Negative) Urine Nitrite Positive A (Negative) Urine Bilirubin Negative (Negative) Urine Urobilinogen 1.0 A (0.2) mg/dL Ur Leukocyte Esterase Large A (Negative) U Hyaline Cast (Auto) NONE SEEN (0-2) /LPF Urine Microscopic RBC 3-5 (0-5) /HPF Urine Microscopic WBC >100 A (0-5) /HPF Ur Epithelial Cells None Seen (None Seen) /HPF Urine Bacteria Many A (None Seen) /HPF Urine Culture Reflexed YES (NO) 07/15/23 Range/Units 19:27 WBC (4.0-10.5) x10^3/uL RBC (4.1-5.4) x10^6/uL Hgb (12.0-16.0) g/dL Hct (35-47) % MCV (78-100) fL MCH (26-32) pg MCHC (32-36) g/dL RDW (11.5-14.0) % Plt Count (150-450) x10^3/uL MPV (7.5-11.0) fL Gran % (36.0-66.0) % Immature Gran % (Auto) (0.00-0.4) % Nucleat RBC Rel Count (0.00-0.1) % Eos # (Auto) (0-0.5) x10^3/uL Immature Gran # (Auto) (0.00-0.03) x10^3u/L Absolute Lymphs (auto) (1.0-4.6) x10^3/uL Absolute Monos (auto) (0.0-1.3) x10^3/uL Absolute Nucleated RBC (0.00-0.01) x10^3u/L Lymphocytes % (24.0-44.0) % Monocytes % (0.0-12.0) % Eosinophils % (0.00-5.0) % Basophils % (0.0-0.4) % Absolute Granulocytes (1.4-6.9) x10^3/uL Basophils # (0-0.4) x10^3/uL Sodium (137-145) mmol/L Potassium (3.5-5.1) mmol/L Chloride (98-107) mmol/L Carbon Dioxide (22-30) mmol/L Anion Gap (5-15) MEQ/L BUN (7-17) mg/dL Creatinine (0.52-1.04) mg/dL Estimated GFR ML/MIN Glucose (74-106) mg/dL Lactic Acid 1.1 (0.4-2.0) Calcium (8.4-10.2) mg/dL Total Bilirubin (0.2-1.3) mg/dL AST (14-36) U/L ALT (0-35) U/L Alkaline Phosphatase (38-126) U/L Serum Total Protein (6.3-8.2) g/dL Albumin (3.5-5.0) g/dL Urine Color (Yellow) Urine Appearance (Clear) Urine pH (4.6-8.0) Ur Specific [place] (1.005-1.030) Urine Protein (Negative) Urine Glucose (UA) (Negative) mg/dL Urine Ketones (Negative) Urine Blood (Negative) Urine Nitrite (Negative) Urine Bilirubin (Negative) Urine Urobilinogen (0.2) mg/dL Ur Leukocyte Esterase (Negative) U Hyaline Cast (Auto) (0-2) /LPF Urine Microscopic RBC (0-5) /HPF Urine Microscopic WBC (0-5) /HPF Ur Epithelial Cells (None Seen) /HPF Urine Bacteria (None Seen) /HPF Urine Culture Reflexed (NO) - Radiology Impressions Radiology Exams & Impressions: Radiology Procedures Category Date Time Status ABDOMEN AND PELVIS W/0 CONTRAS [CT] Stat Exams 07/15/23 19:47 Taken Assessment/Plan (1) UTI (urinary tract infection) Current Visit: Yes Status: Acute Assessment & Plan: UA noted, urine culture pending. Rocephin 1gm IV daily. Await culture to guide oral ABX. CT abd/pelvic suggests air bubble in bladder - but no mass or stone. Code(s): N39.0 - URINARY TRACT INFECTION, SITE NOT SPECIFIED (2) Pelvic pain in female Current Visit: Yes Status: Acute Assessment & Plan: UTI causing the pt pain. ER did pelvic exam - only shows excoriation of the external vaginal area - no yeast or other sign of abnormalities. She has been "grabbing" at the area, so likely causing irritation from constant contact. Counseled on avoiding this, and pain med prn. And CT abd/pelvic shows air bubble in urinary bladder. Code(s): R10.2 - PELVIC AND PERINEAL PAIN (3) Leukocytosis Current Visit: No Status: Acute Assessment & Plan: WBC 12.2, likely 2/2 stress and UTI. Monitor as we treat UTI Code(s): D72.829 - ELEVATED WHITE BLOOD CELL COUNT, UNSPECIFIED (4) Hyponatremia Current Visit: No Status: Resolved Assessment & Plan: Na 129 - could be SIADH from acute pain, and or poor oral intake + continue fluid intake. NS at 100ml/hr, monitor Code(s): E87.1 - HYPO-OSMOLALITY AND HYPONATREMIA (5) Essential (primary) hypertension Current Visit: Yes Status: Acute Assessment & Plan: Can resume home BP meds. Monitor BP trend and make adjustment as needed Code(s): I10 - ESSENTIAL (PRIMARY) HYPERTENSION (6) COPD (chronic obstructive pulmonary disease) Current Visit: No Status: Chronic Qualifiers: COPD type: COPD with acute exacerbation Qualified Code(s): J44.1 - Chronic obstructive pulmonary disease with (acute) exacerbation Assessment & Plan: No active issue. Continue home med - ellipta Telemedicine Encounter - Telemedicine Encounter Telemedicine Encounter: The entirety of this encounter was performed via Telemedicine" The pt gave me verbal consent to have this telemedicine visit
[2023-07-15] MEDS: Sodium Chloride 0.9% 1000 ML 1,000 ML IV SCH (23:30)
[2023-07-15] MEDS: Hydromorphone 1 mg/ml Injection IV PRN (23:48)
--- NOTE | 2023-07-16 05:10 | PCM.NOTE ---
Date and Time: 07/16/23 0509 Subjective Assessment: History of Present Illness: is a 77 year old female with history of HTN, Osteoporosis, COPD pre sented tonight with flank pain and groin pain. She was here earlier in the week with UTI complaints - sent home with cipro to be taken MWF but felt no better. Came in with continue and worsening pevlic pain. ER performed pelvic exam, saw only superficial excoriation in the vaginal area - no other acute finding. ER gave pain meds and Ativan, but pt remains in distress due to "pain". So she is coming in for UTI with intractable pain. 07/16: Met with patient bedside. Endorses improvement of pelvic pain overall. States she does have pain and burning with urination as well as vaginitis which has im proved with barrier cream. WBC count is up this morning and patient with 102 temp. Sodium levels have improved with IVF which we will continue. - Review of Systems Constitutional: Fever Eyes: No Symptoms Ears, Nose, & Throat: No Symptoms Respiratory: Wheezing Cardiac: No Symptoms Abdominal/Gastrointestinal: Abdominal Pain Genitourinary Symptoms: Dysuria, Frequency, Vaginal Itching Musculoskeletal: No Symptoms Skin: No Symptoms Neurological: No Symptoms Psychological: No Symptoms Endocrine: No Symptoms Objective Exam General Appearance: mild distress Neurologic Exam: alert, oriented x 3, cooperative Eye Exam: PERRL Ears, Nose, Throat Exam: normal ENT inspection Neck Exam: normal inspection Respiratory Exam: crackles/rales, wheezing Cardiovascular Exam: regular rate/rhythm, normal heart sounds Gastrointestinal/Abdomen Exam: soft, normal bowel sounds, tenderness Extremity Exam: normal inspection Back Exam: normal inspection Pelvic Exam: other (vaginal excoriation) OBJECTIVE DATA Vital Signs: Vital Signs - 24 hr Temp Pulse Resp BP BP Pulse Ox 07/16/23 04:00 99.3 F 117 H 20 142/60 89 L 07/15/23 23:50 97.6 F 76 20 140/63 92 L 07/15/23 22:44 97.6 F 76 20 140/63 92 L 07/15/23 22:22 93 L 07/15/23 22:00 70 18 133/73 93 L 07/15/23 21:30 73 20 121/68 94 L 07/15/23 21:00 79 114/40 95 07/15/23 20:37 110/57 07/15/23 20:30 130/63 95 07/15/23 20:29 95 07/15/23 20:20 95 07/15/23 20:11 94 L 07/15/23 19:30 106 H 23 114/65 96 07/15/23 19:20 105 H 17 140/86 96 07/15/23 19:19 92 L 07/15/23 19:06 92 L 07/15/23 18:19 97.8 F 91 H 22 146/73 93 L Pain Assessment - Last Documented Pain Intensity 6 Pain Scale Used 0-10 Pain Scale Intake and Output: Intake & Output 07/13/23 07/14/23 07/15/23 07/16/23 11:59 11:59 11:59 11:59 Intake Total 484 Balance 484 Weight 89.2 kg Lab Results: Lab Results-Last 24 Hours 07/15/23 07/15/23 07/15/23 Range/Units 18:42 19:25 19:25 WBC 12.2 H (4.0-10.5) x10^3/uL RBC 4.87 (4.1-5.4) x10^6/uL Hgb 15.0 (12.0-16.0) g/dL Hct 45.7 (35-47) % MCV 93.8 (78-100) fL MCH 30.8 (26-32) pg MCHC 32.8 (32-36) g/dL RDW 13.2 (11.5-14.0) % Plt Count 316 (150-450) x10^3/uL MPV 10.2 (7.5-11.0) fL Gran % 65.2 (36.0-66.0) % Immature Gran % (Auto) 0.9 H (0.00-0.4) % Nucleat RBC Rel Count 0.0 (0.00-0.1) % Eos # (Auto) 0.14 (0-0.5) x10^3/uL Immature Gran # (Auto) 0.11 H (0.00-0.03) x10^3u/L Absolute Lymphs (auto) 2.78 (1.0-4.6) x10^3/uL Absolute Monos (auto) 1.13 (0.0-1.3) x10^3/uL Absolute Nucleated RBC 0.00 (0.00-0.01) x10^3u/L Lymphocytes % 22.9 L (24.0-44.0) % Monocytes % 9.3 (0.0-12.0) % Eosinophils % 1.2 (0.00-5.0) % Basophils % 0.5 (0.0-0.4) % Absolute Granulocytes 7.94 H (1.4-6.9) x10^3/uL Basophils # 0.06 (0-0.4) x10^3/uL Sodium 129 L (137-145) mmol/L Potassium 4.0 (3.5-5.1) mmol/L Chloride 97 L (98-107) mmol/L Carbon Dioxide 23 (22-30) mmol/L Anion Gap 13.0 (5-15) MEQ/L BUN 19 H (7-17) mg/dL Creatinine 0.63 (0.52-1.04) mg/dL Estimated GFR 90.7 ML/MIN Glucose 101 (74-106) mg/dL Lactic Acid (0.4-2.0) Calcium 9.0 (8.4-10.2) mg/dL Total Bilirubin 0.40 (0.2-1.3) mg/dL AST 28 (14-36) U/L ALT 21 (0-35) U/L Alkaline Phosphatase 80 (38-126) U/L Serum Total Protein 7.5 (6.3-8.2) g/dL Albumin 4.2 (3.5-5.0) g/dL Urine Color Yellow (Yellow) Urine Appearance Turbid A (Clear) Urine pH 5.5 (4.6-8.0) Ur Specific [place] 1.020 (1.005-1.030) Urine Protein 300 A (Negative) Urine Glucose (UA) Negative (Negative) mg/dL Urine Ketones Trace A (Negative) Urine Blood Moderate A (Negative) Urine Nitrite Positive A (Negative) Urine Bilirubin Negative (Negative) Urine Urobilinogen 1.0 A (0.2) mg/dL Ur Leukocyte Esterase Large A (Negative) U Hyaline Cast (Auto) NONE SEEN (0-2) /LPF Urine Microscopic RBC 3-5 (0-5) /HPF Urine Microscopic WBC >100 A (0-5) /HPF Ur Epithelial Cells None Seen (None Seen) /HPF Urine Bacteria Many A (None Seen) /HPF Urine Culture Reflexed YES (NO) 07/15/23 Range/Units 19:27 WBC (4.0-10.5) x10^3/uL RBC (4.1-5.4) x10^6/uL Hgb (12.0-16.0) g/dL Hct (35-47) % MCV (78-100) fL MCH (26-32) pg MCHC (32-36) g/dL RDW (11.5-14.0) % Plt Count (150-450) x10^3/uL MPV (7.5-11.0) fL Gran % (36.0-66.0) % Immature Gran % (Auto) (0.00-0.4) % Nucleat RBC Rel Count (0.00-0.1) % Eos # (Auto) (0-0.5) x10^3/uL Immature Gran # (Auto) (0.00-0.03) x10^3u/L Absolute Lymphs (auto) (1.0-4.6) x10^3/uL Absolute Monos (auto) (0.0-1.3) x10^3/uL Absolute Nucleated RBC (0.00-0.01) x10^3u/L Lymphocytes % (24.0-44.0) % Monocytes % (0.0-12.0) % Eosinophils % (0.00-5.0) % Basophils % (0.0-0.4) % Absolute Granulocytes (1.4-6.9) x10^3/uL Basophils # (0-0.4) x10^3/uL Sodium (137-145) mmol/L Potassium (3.5-5.1) mmol/L Chloride (98-107) mmol/L Carbon Dioxide (22-30) mmol/L Anion Gap (5-15) MEQ/L BUN (7-17) mg/dL Creatinine (0.52-1.04) mg/dL Estimated GFR ML/MIN Glucose (74-106) mg/dL Lactic Acid 1.1 (0.4-2.0) Calcium (8.4-10.2) mg/dL Total Bilirubin (0.2-1.3) mg/dL AST (14-36) U/L ALT (0-35) U/L Alkaline Phosphatase (38-126) U/L Serum Total Protein (6.3-8.2) g/dL Albumin (3.5-5.0) g/dL Urine Color (Yellow) Urine Appearance (Clear) Urine pH (4.6-8.0) Ur Specific [place] (1.005-1.030) Urine Protein (Negative) Urine Glucose (UA) (Negative) mg/dL Urine Ketones (Negative) Urine Blood (Negative) Urine Nitrite (Negative) Urine Bilirubin (Negative) Urine Urobilinogen (0.2) mg/dL Ur Leukocyte Esterase (Negative) U Hyaline Cast (Auto) (0-2) /LPF Urine Microscopic RBC (0-5) /HPF Urine Microscopic WBC (0-5) /HPF Ur Epithelial Cells (None Seen) /HPF Urine Bacteria (None Seen) /HPF Urine Culture Reflexed (NO) Radiology Exams: Radiology Procedures Category Date Time Status ABDOMEN AND PELVIS W/0 CONTRAS [CT] Stat Exams 07/15/23 19:47 Taken Assessment/Plan (1) UTI (urinary tract infection) Current Visit: Yes Status: Acute Assessment & Plan: UA noted, urine culture pending. Rocephin 1gm IV daily. Await culture to guide oral ABX. CT abd/pelvic suggests air bubble in bladder - but no mass or stone. Code(s): N39.0 - URINARY TRACT INFECTION, SITE NOT SPECIFIED 2: -Ucult pending, continue ceftriaxone for now, add pyridium/diflucan x 1 dose (2) Pelvic pain in female Current Visit: Yes Status: Acute Assessment & Plan: UTI causing the pt pain. ER did pelvic exam - only shows excoriation of the external vaginal area - no yeast or other sign of abnormalities. She has been "grabbing" at the area, so likely causing irritation from constant contact. Counseled on avoiding this, and pain med prn. And CT abd/pelvic shows air bubble in urinary bladder. 122: -Continue barrier cream Code(s): R10.2 - PELVIC AND PERINEAL PAIN (3) Leukocytosis Current Visit: No Status: Acute Assessment & Plan: WBC 12.2, likely 2/2 stress and UTI. Monitor as we treat UTI 07/16: WBC trending up, will continue to monitor, continue ceftriaxone Code(s): D72.829 - ELEVATED WHITE BLOOD CELL COUNT, UNSPECIFIED (4) Hyponatremia Current Visit: No Status: Resolved Assessment & Plan: Na 129 - could be SIADH from acute pain, and or poor oral intake + continue fluid intake. NS at 100ml/hr, monitor 07/16: -Improving, will continue IVF Code(s): E87.1 - HYPO-OSMOLALITY AND HYPONATREMIA (5) Essential (primary) hypertension Current Visit: Yes Status: Acute Assessment & Plan: Can resume home BP meds. Monitor BP trend and make adjustment as needed Code(s): I10 - ESSENTIAL (PRIMARY) HYPERTENSION (6) COPD (chronic obstructive pulmonary disease) Current Visit: No Status: Chronic Qualifiers: COPD type: COPD with acute exacerbation Qualified Code(s): J44.1 - Chronic obstructive pulmonary disease with (acute) exacerbation Assessment & Plan: No active issue. Continue home med - ellipta 07/16: -add duoneb Code(s): N39.0 - URINARY TRACT INFECTION, SITE NOT SPECIFIED (2) Leukocytosis Current Visit: No Status: Acute Code(s): D72.829 - ELEVATED WHITE BLOOD CELL COUNT, UNSPECIFIED (3) Pelvic pain in female Current Visit: Yes Status: Acute Code(s): R10.2 - PELVIC AND PERINEAL PAIN (4) Essential (primary) hypertension Current Visit: Yes Status: Acute Code(s): I10 - ESSENTIAL (PRIMARY) HYPERTENSION (5) COPD (chronic obstructive pulmonary disease) Current Visit: No Status: Chronic Qualifiers: COPD type: COPD with acute exacerbation Qualified Code(s): J44.1 - Chronic obstructive pulmonary disease with (acute) exacerbation (6) Hyponatremia Current Visit: No Status: Resolved Code(s): E87.1 - HYPO-OSMOLALITY AND HYPONATREMIA
[2023-07-16 05:56] LABS: Absolute Neutrophil Ct (ANC) 19.47 x10^3/uL (1.4-6.9); BASOPHIL % 0.3 % (0.0-0.4); Basophil (Absolute #) 0.07 x10^3/uL (0-0.4); Eosinophil % 0.5 % (0.00-5.0); Hematocrit 46.5 % (35-47); Hemoglobin 14.6 g/dL (12.0-16.0); IMMATURE GRAN # 0.11 x10^3u/L (0.00-0.03); IMMATURE GRAN % 0.5 % (0.00-0.4); Lymphocyte (Absolute #) 1.19 x10^3/uL (1.0-4.6); Lymphocytes % 5.4 % (24.0-44.0); Mean Cell Volume 95.9 fL (78-100); Mean Corpuscular Hemoglobin 30.1 pg (26-32); Mean Corpuscular Hgb Concent. 31.4 g/dL (32-36); Mean Platelet Volume 10.3 fL (7.5-11.0); Monocytes % 4.1 % (0.0-12.0); Neutrophil % 89.2 % (36.0-66.0); Platelet Count 310 x10^3/uL (150-450); Red Blood Count 4.85 x10^6/uL (4.1-5.4); Red Cell Distribution Width 13.4 % (11.5-14.0); White Blood Count 21.8 x10^3/uL (4.0-10.5)
[2023-07-16 06:30] LABS: ANION GAP 14.4 MEQ/L (5-15); Calcium 8.1 mg/dL (8.4-10.2); Creatinine 1 0.69 mg/dL (0.52-1.04); EST GLOMERULAR FILTRATION RATE 88.8 ML/MIN; Potassium 4.3 mmol/L (3.5-5.1)
[2023-07-16] MEDS ORDERED: Advair Hfa 115/21 Common canister IH SCH (07:00)
--- NOTE | 2023-07-16 07:21 | XRAY ---
Indication: Suprapubic pain. Multiple contiguous axial images obtained through the abdomen and pelvis without contrast. Comparison: March 16, 2023 Lung bases again demonstrates subpleural cystic changes and scattered fibrosis/scarring. No infiltrate or effusion. Heart not enlarged. Stable small hiatal hernia. Noncontrasted stomach and bowel loops appear nonobstructed. There remains scattered descending/sigmoid diverticulosis without diverticulitis. Again small left renal cyst, nonobstructing left renal punctate calculus, and hysterectomy. Urinary bladder demonstrates new intraluminal air bubble either iatrogenic from recent catheterization versus gas-forming infection. No free fluid/air. Remaining liver, gallbladder, pancreas, spleen, adrenal glands, kidneys, ureters, and bladder are unremarkable for noncontrast exam. Stable mild scattered aortoiliac calcifications without AAA. Osseous structures intact again with osteopenia, mild degenerative changes throughout the spine, moderate dextrorotoscoliosis centered at L2, and moderate degenerative changes both hips. Impression: 1. New urinary bladder air bubble either iatrogenic versus gas-forming infection. 2. Again chronic findings including pulmonary fibrosis/scarring, hiatal hernia, colonic diverticulosis, left renal cyst, nonobstructing left renal micro-calculus, arteriosclerotic disease, and chronic bony findings.
[2023-07-16] MEDS ORDERED: DIFLUCAN PO ONE (09:48)
[2023-07-16] MEDS ORDERED: DUONEB 0.5-3 MG/3 ml Neb IH PRN (09:52)
[2023-07-16] MEDS ORDERED: Klor Con PO SCH (10:00)
[2023-07-16] MEDS: Sodium Chloride 0.9% 1000 ML 1,000 ML IV SCH ×2 (10:17→19:08)
[2023-07-16] MEDS: Vitamin B-6 (Pyridoxine) 100 MG PO SCH ×2 (10:19→16:21)
[2023-07-16] MEDS: Zestril 5 MG PO SCH (10:20)
[2023-07-16] MEDS: HEPARIN 5000 UNITS/0.5 ML (HIGH RISK MED) SQ SCH ×2 (10:20→21:25)
[2023-07-16] MEDS: Hydromorphone 1 mg/ml Injection IV PRN ×2 (12:34→23:46)
[2023-07-16] MEDS: TYLENOL 325 MG PO PRN (18:20)
[2023-07-16] MEDS: NORVASC 5 MG PO SCH (21:25)
[2023-07-16] MEDS: PYRIDIUM 200 MG PO SCH (21:25)
[2023-07-16] MEDS: ROCEPHIN 1 Gm-D5w 50 ml Bag** 1 G/50 ML IVPB IV SCH (21:26)
[2023-07-17] MEDS: Sodium Chloride 0.9% 1000 ML 1,000 ML IV SCH ×2 (04:17→14:09)
[2023-07-17] MEDS: Hydromorphone 1 mg/ml Injection IV PRN (04:17)
--- NOTE | 2023-07-17 05:14 | PCM.NOTE ---
Date and Time: 07/17/23 0514 Subjective Assessment: is a 77 year old female with history of HTN, Osteoporosis, COPD presented tonight with flank pain and groin pain. She was here earlier in the week with UTI complaints - sent home with cipro to be taken MWF but felt no better. Came in with continue and worsening pevlic pain. ER performed pelvic e xam, saw only superficial excoriation in the vaginal area - no other acute finding. ER gave pain meds and Ativan, but pt remains in distress due to "pain". So she is coming in for UTI with intractable pain. 07/16: Met with patient bedside. Endorses improvement of pelvic pain overall. States she does have pain and burning with urination as well as vaginitis which has improved with barrier cream. WBC count is up this morning and patient with 102 temp. Sodium levels have improved with IVF which we will continue. 07/17: Met with patient bedside. Patient febrile overnight. Feeling better today. Dy suria has improved, no longer having burning with urination. Vaginitis improved. WBC is trending down. U-cult with ecoli. Will continue with ceftriaxone, patient with multiple allergies and is tolerating well. Plan to discharge in the morning. - Review of Systems Constitutional: Fever Eyes: No Symptoms Ears, Nose, & Throat: No Symptoms Respiratory: No Symptoms Cardiac: No Symptoms Abdominal/Gastrointestinal: No Symptoms Genitourinary Symptoms: Dysuria, Vaginal Itching Musculoskeletal: No Symptoms Skin: No Symptoms Neurological: No Symptoms Psychological: No Symptoms Endocrine: No Symptoms Immunological/Allergic: No Symptoms Objective Exam General Appearance: no apparent distress Neurologic Exam: alert, oriented x 3, cooperative Skin Exam: normal color Eye Exam: PERRL Ears, Nose, Throat Exam: normal ENT inspection Neck Exam: normal inspection Lymphatic Exam: adenopathy Respiratory Exam: wheezing Cardiovascular Exam: regular rate/rhythm, normal heart sounds Gastrointestinal/Abdomen Exam: soft, normal bowel sounds Extremity Exam: normal inspection Back Exam: normal inspection Pelvic Exam: deferred Rectal Exam: deferred OBJECTIVE DATA Vital Signs: Vital Signs - 24 hr Temp Pulse Resp BP Pulse Ox 07/16/23 23:34 98.3 F 114 H 20 141/66 92 L 07/16/23 21:20 76 103/49 91 L 07/16/23 20:42 86 18 91 L 07/16/23 20:00 98.7 F 77 18 92/42 88 L 07/16/23 16:00 98.0 F 79 17 105/50 92 L 07/16/23 12:00 97.6 F 19 108/52 90 L 07/16/23 11:19 99 H 18 90 L 07/16/23 08:00 102.2 F 104 H 17 131/58 95 Pain Assessment - Last Documented Pain Intensity 0 Pain Scale Used 0-10 Pain Scale Intake and Output: Intake & Output 07/14/23 07/15/23 07/16/23 07/17/23 11:59 11:59 11:59 11:59 Intake Total 484 240 Output Total 1750 Balance 484 -1510 Weight 89.2 kg Lab Results: Lab Results-Last 24 Hours 07/16/23 07/16/23 Range/Units 05:43 05:43 WBC 21.8 H (4.0-10.5) x10^3/uL RBC 4.85 (4.1-5.4) x10^6/uL Hgb 14.6 (12.0-16.0) g/dL Hct 46.5 (35-47) % MCV 95.9 (78-100) fL MCH 30.1 (26-32) pg MCHC 31.4 L (32-36) g/dL RDW 13.4 (11.5-14.0) % Plt Count 310 (150-450) x10^3/uL MPV 10.3 (7.5-11.0) fL Gran % 89.2 H (36.0-66.0) % Immature Gran % (Auto) 0.5 H (0.00-0.4) % Nucleat RBC Rel Count 0.0 (0.00-0.1) % Eos # (Auto) 0.10 (0-0.5) x10^3/uL Immature Gran # (Auto) 0.11 H (0.00-0.03) x10^3u/L Absolute Lymphs (auto) 1.19 (1.0-4.6) x10^3/uL Absolute Monos (auto) 0.90 (0.0-1.3) x10^3/uL Absolute Nucleated RBC 0.00 (0.00-0.01) x10^3u/L Lymphocytes % 5.4 L (24.0-44.0) % Monocytes % 4.1 (0.0-12.0) % Eosinophils % 0.5 (0.00-5.0) % Basophils % 0.3 (0.0-0.4) % Absolute Granulocytes 19.47 H (1.4-6.9) x10^3/uL Basophils # 0.07 (0-0.4) x10^3/uL Sodium 130 L (137-145) mmol/L Potassium 4.3 (3.5-5.1) mmol/L Chloride 100 (98-107) mmol/L Carbon Dioxide 21 L (22-30) mmol/L Anion Gap 14.4 (5-15) MEQ/L BUN 22 H (7-17) mg/dL Creatinine 0.69 (0.52-1.04) mg/dL Estimated GFR 88.8 ML/MIN Glucose 109 H (74-106) mg/dL Calcium 8.1 L (8.4-10.2) mg/dL Radiology Exams: Radiology Procedures Category Date Time Status ABDOMEN AND PELVIS W/0 CONTRAS [CT] Stat Exams 07/15/23 19:47 Completed Assessment/Plan (1) UTI (urinary tract infection) Current Visit: Yes Status: Acute Assessment & Plan: UA noted, urine culture pending. Rocephin 1gm IV daily. Await culture to guide oral ABX. CT abd/pelvic suggests air bubble in bladder - but no mass or stone. Code(s): N39.0 - URINARY TRACT INFECTION, SITE NOT SPECIFIED 07/16: -Ucult pending, continue ceftriaxone for now, add pyridium/diflucan x 1 dose 3: -One more day of pyridium -U-cult with ecoli, continue ceftriaxone, switch to oral for discharge tomorrow (2) Pelvic pain in female Current Visit: Yes Status: Acute Assessment & Plan: UTI causing the pt pain. ER did pelvic exam - only shows excoriation of the external vaginal area - no yeast or other sign of abnormalities. She has been "grabbing" at the area, so likely causing irritation from constant contact. Counseled on avoiding this, and pain med prn. And CT abd/pelvic shows air bubble in urinary bladder. 122: -Continue barrier cream Code(s): R10.2 - PELVIC AND PERINEAL PAIN (3) Leukocytosis Current Visit: No Status: Acute Assessment & Plan: WBC 12.2, likely 2/2 stress and UTI. Monitor as we treat UTI 07/16: WBC trending up, will continue to monitor, continue ceftriaxone 07/17: -Improving, continue IV abx x 1 more day Code(s): D72.829 - ELEVATED WHITE BLOOD CELL COUNT, UNSPECIFIED (4) Hyponatremia Current Visit: No Status: Resolved Assessment & Plan: Na 129 - could be SIADH from acute pain, and or poor oral intake + continue fluid intake. NS at 100ml/hr, monitor 07/16: -Improving, will continue IVF 07/17: -improving at 134 Code(s): E87.1 - HYPO-OSMOLALITY AND HYPONATREMIA (5) Essential (primary) hypertension Current Visit: Yes Status: Acute Assessment & Plan: Can resume home BP meds. Monitor BP trend and make adjustment as needed Code(s): I10 - ESSENTIAL (PRIMARY) HYPERTENSION (6) COPD (chronic obstructive pulmonary disease) Current Visit: No Status: Chronic Qualifiers: COPD type: COPD with acute exacerbation Qualified Code(s): J44.1 - Chronic obstructive pulmonary disease with (acute) exacerbation Assessment & Plan: No active issue. Continue home med - ellipta 07/16: -add duoneb Code(s): N39.0 - URINARY TRACT INFECTION, SITE NOT SPECIFIED (2) Leukocytosis Current Visit: No Status: Acute Code(s): D72.829 - ELEVATED WHITE BLOOD CELL COUNT, UNSPECIFIED (3) Pelvic pain in female Current Visit: Yes Status: Acute Code(s): R10.2 - PELVIC AND PERINEAL PAIN (4) Essential (primary) hypertension Current Visit: Yes Status: Acute Code(s): I10 - ESSENTIAL (PRIMARY) HYPERTENSION (5) COPD (chronic obstructive pulmonary disease) Current Visit: No Status: Chronic Qualifiers: COPD type: COPD with acute exacerbation Qualified Code(s): J44.1 - Chronic obstructive pulmonary disease with (acute) exacerbation (6) Hyponatremia Current Visit: No Status: Resolved Code(s): E87.1 - HYPO-OSMOLALITY AND HYPONATREMIA
[2023-07-17] MEDS: TYLENOL 325 MG PO PRN ×2 (06:06→22:20)
[2023-07-17 06:15] LABS: Absolute Neutrophil Ct (ANC) 10.43 x10^3/uL (1.4-6.9); BASOPHIL % 0.2 % (0.0-0.4); Basophil (Absolute #) 0.03 x10^3/uL (0-0.4); Eosinophil % 0.8 % (0.00-5.0); Hematocrit 41.4 % (35-47); Hemoglobin 13.2 g/dL (12.0-16.0); IMMATURE GRAN # 0.06 x10^3u/L (0.00-0.03); IMMATURE GRAN % 0.5 % (0.00-0.4); Lymphocyte (Absolute #) 1.42 x10^3/uL (1.0-4.6); Lymphocytes % 11.1 % (24.0-44.0); Mean Cell Volume 97.4 fL (78-100); Mean Corpuscular Hemoglobin 31.1 pg (26-32); Mean Corpuscular Hgb Concent. 31.9 g/dL (32-36); Mean Platelet Volume 10.8 fL (7.5-11.0); Monocytes % 5.5 % (0.0-12.0); Neutrophil % 81.9 % (36.0-66.0); Platelet Count 241 x10^3/uL (150-450); Red Blood Count 4.25 x10^6/uL (4.1-5.4); Red Cell Distribution Width 13.8 % (11.5-14.0); White Blood Count 12.7 x10^3/uL (4.0-10.5)
[2023-07-17 06:43] LABS: ALBUMIN 3.4 g/dL (3.5-5.0); ANION GAP 11.3 MEQ/L (5-15); BILIRUBIN,TOTAL 0.4 mg/dL (0.2-1.3); Calcium 7.5 mg/dL (8.4-10.2); Creatinine 1 0.49 mg/dL (0.52-1.04); EST GLOMERULAR FILTRATION RATE 96.4 ML/MIN; Potassium 3.8 mmol/L (3.5-5.1); Total Protein 6.3 g/dL (6.3-8.2)
[2023-07-17] MEDS: Advair Hfa 115/21 Common canister IH SCH (10:05)
[2023-07-17] MEDS: Zestril 5 MG PO SCH (10:48)
[2023-07-17] MEDS: PYRIDIUM 200 MG PO SCH ×3 (10:48→22:17)
[2023-07-17] MEDS: HEPARIN 5000 UNITS/0.5 ML (HIGH RISK MED) SQ SCH ×2 (10:49→22:17)
[2023-07-17] MEDS: ROCEPHIN 1 Gm-D5w 50 ml Bag** 1 G/50 ML IVPB IV SCH (22:17)
[2023-07-17] MEDS: NORVASC 5 MG PO SCH (22:17)
[2023-07-18] MEDS: Sodium Chloride 0.9% 1000 ML 1,000 ML IV SCH (00:59)
[2023-07-18 04:58] LABS: Absolute Neutrophil Ct (ANC) 5.56 x10^3/uL (1.4-6.9); BASOPHIL % 0.4 % (0.0-0.4); Basophil (Absolute #) 0.03 x10^3/uL (0-0.4); Eosinophil % 1.6 % (0.00-5.0); Eosinophil (Absolute #) 0.14 x10^3/uL (0-0.5); Hematocrit 40.5 % (35-47); Hemoglobin 12.6 g/dL (12.0-16.0); IMMATURE GRAN # 0.06 x10^3u/L (0.00-0.03); IMMATURE GRAN % 0.7 % (0.00-0.4); Lymphocyte (Absolute #) 1.87 x10^3/uL (1.0-4.6); Mean Cell Volume 98.1 fL (78-100); Mean Corpuscular Hemoglobin 30.5 pg (26-32); Mean Corpuscular Hgb Concent. 31.1 g/dL (32-36); Mean Platelet Volume 10.4 fL (7.5-11.0); Monocyte (Absolute #) 0.84 x10^3/uL (0.0-1.3); Monocytes % 9.9 % (0.0-12.0); Neutrophil % 65.4 % (36.0-66.0); Platelet Count 241 x10^3/uL (150-450); Red Blood Count 4.13 x10^6/uL (4.1-5.4); Red Cell Distribution Width 13.6 % (11.5-14.0); White Blood Count 8.5 x10^3/uL (4.0-10.5)
[2023-07-18 05:29] LABS: ALBUMIN 2.8 g/dL (3.5-5.0); ANION GAP 6.6 MEQ/L (5-15); BILIRUBIN,TOTAL 0.3 mg/dL (0.2-1.3); Calcium 7.4 mg/dL (8.4-10.2); Creatinine 1 0.43 mg/dL (0.52-1.04); EST GLOMERULAR FILTRATION RATE 99.5 ML/MIN; Potassium 3.6 mmol/L (3.5-5.1); Total Protein 5.3 g/dL (6.3-8.2)
[2023-07-18 07:08] VITALS: RESP 18
[2023-07-18] MEDS: Advair Hfa 115/21 Common canister IH SCH (08:29)
[2023-07-18] MEDS ORDERED: DULCOLAX 5 MG PO ONE (08:41)
--- NOTE | 2023-07-18 09:39 | PCM.DS ---
Discharge Summary Date of Admission: 07/15/23 22:42 Date of Discharge: 07/18/23 Admitting Physician: KITA BELCHER DO Primary Care Provider: EUGENIA,ELIZABETH Allergies Allergies moxifloxacin HCl [From Avelox] Allergy (Severe, Verified 03/17/23 03:29) Hives oseltamivir [From Tamiflu] Allergy (Severe, Verified 03/16/23 19:34) Swelling of Face Sulfa (Sulfonamide Antibiotics) Allergy (Mild, Verified 03/17/23 03:30) Hives codeine Allergy (Verified 03/17/23 03:30) Hives Penicillins Allergy (Verified 03/17/23 03:30) [facility] Summary - Hospital Course Hospital Course: is a 77 year old female with history of HTN, Osteoporosis, COPD pres ented with flank pain and groin pain. She was here earlier in the week with UTI complaints - sent home with cipro to be taken MWF but felt no better. Came in with continued and worsening pevlic pain. ER performed pelvic exam, saw only superficial excoriation in the vaginal area - no other acute finding. ER gave pain meds and Ativan, but pt remained in distress due to "pain". She was admitted for UTI with intractable pain. Pelvic pain improved throughout stay. She continues to have some discomfort with urination and pyridium prescribed. Vaginitis pain has improved with barrier cream. Stool softener ordered this morning she was able to have a small BM. She states she feels ready to go home today. Pt received Rocephin IV IP, will continue cefuroxime OP. t - Vitals & Intake/Output Vital Signs: Vital Signs Temperature 99.2 F 07/18/23 07:08 Pulse Rate 78 07/18/23 08:37 Respiratory Rate 18 07/18/23 08:37 Blood Pressure 109/55 07/18/23 07:08 O2 Sat by Pulse Oximetry 91 L 07/18/23 08:37 Intake & Output: Intake & Output 07/15/23 07/16/23 07/17/23 07/18/23 11:59 11:59 11:59 11:59 Intake Total 309 809 2451 Output Total 1750 3050 Balance 484 -1510 806 Weight 89.2 kg - Lab Result Diagrams: 07/18/23 04:55 07/18/23 04:55 Lab Results-Last 24 Hrs: Lab Results-Last 24 Hours 07/18/23 07/18/23 Range/Units 04:55 04:55 WBC 8.5 (4.0-10.5) x10^3/uL RBC 4.13 (4.1-5.4) x10^6/uL Hgb 12.6 (12.0-16.0) g/dL Hct 40.5 (35-47) % MCV 98.1 (78-100) fL MCH 30.5 (26-32) pg MCHC 31.1 L (32-36) g/dL RDW 13.6 (11.5-14.0) % Plt Count 241 (150-450) x10^3/uL MPV 10.4 (7.5-11.0) fL Gran % 65.4 (36.0-66.0) % Immature Gran % (Auto) 0.7 H (0.00-0.4) % Nucleat RBC Rel Count 0.0 (0.00-0.1) % Eos # (Auto) 0.14 (0-0.5) x10^3/uL Immature Gran # (Auto) 0.06 H (0.00-0.03) x10^3u/L Absolute Lymphs (auto) 1.87 (1.0-4.6) x10^3/uL Absolute Monos (auto) 0.84 (0.0-1.3) x10^3/uL Absolute Nucleated RBC 0.00 (0.00-0.01) x10^3u/L Lymphocytes % 22.0 L (24.0-44.0) % Monocytes % 9.9 (0.0-12.0) % Eosinophils % 1.6 (0.00-5.0) % Basophils % 0.4 (0.0-0.4) % Absolute Granulocytes 5.56 (1.4-6.9) x10^3/uL Basophils # 0.03 (0-0.4) x10^3/uL Sodium 136 L (137-145) mmol/L Potassium 3.6 (3.5-5.1) mmol/L Chloride 109 H (98-107) mmol/L Carbon Dioxide 24 (22-30) mmol/L Anion Gap 6.6 (5-15) MEQ/L BUN 7 (7-17) mg/dL Creatinine 0.43 L (0.52-1.04) mg/dL Estimated GFR 99.5 ML/MIN Glucose 94 (74-106) mg/dL Calcium 7.4 L (8.4-10.2) mg/dL Total Bilirubin 0.30 (0.2-1.3) mg/dL AST 54 H (14-36) U/L ALT 67 H (0-35) U/L Alkaline Phosphatase 69 (38-126) U/L Serum Total Protein 5.3 L (6.3-8.2) g/dL Albumin 2.8 L (3.5-5.0) g/dL Micro Results-Entire Visit: Microbiology 07/15/23 18:42 Urine Culture - Final Clean Catch Midstream Escherichia Coli - Procedures and Test Procedures and Tests throughout Hospitalization: Therapy Orders & Screens 07/16/23 11:13 Respiratory Therapy Assessment DAILY Comment: Diagnosis: UTI Discharge Exam General Appearance: no apparent distress, alert Neurologic Exam: alert, oriented x 3, cooperative, normal mood/affect, nml cerebellar function, sensation nml, No motor deficits Eye Exam: PERRL, EOMI, eyes nml inspection Ears, Nose, Throat Exam: normal ENT inspection, pharynx normal, moist mucous membranes Neck Exam: normal inspection, non-tender, supple, full range of motion Respiratory Exam: normal breath sounds, lungs clear, No respiratory distress Cardiovascular Exam: regular rate/rhythm, normal heart sounds Gastrointestinal/Abdomen Exam: soft, No tenderness, No mass Pelvic Exam: deferred Rectal Exam: deferred Back Exam: normal inspection, normal range of motion, No CVA tenderness, No vertebral tenderness Extremity Exam: normal inspection, normal range of motion Skin Exam: normal color, warm, dry Final Diagnosis/Problem List - Final Discharge Diagnosis/Problem (1) UTI (urinary tract infection) Current Visit: Yes Status: Acute Assessment & Plan: - rocephin, - urine culture + e-coli - Pyridium for pain Code(s): N39.0 - URINARY TRACT INFECTION, SITE NOT SPECIFIED (2) Pelvic pain in female Current Visit: Yes Status: Acute Assessment & Plan: -Continue barrier cream Code(s): R10.2 - PELVIC AND PERINEAL PAIN (3) Essential (primary) hypertension Current Visit: Yes Status: Acute Assessment & Plan: Can resume home BP meds. - stable Code(s): I10 - ESSENTIAL (PRIMARY) HYPERTENSION (4) Leukocytosis Current Visit: No Status: Acute Assessment & Plan: - resolved Code(s): D72.829 - ELEVATED WHITE BLOOD CELL COUNT, UNSPECIFIED (5) COPD (chronic obstructive pulmonary disease) Current Visit: No Status: Chronic Assessment & Plan: -No active issue. Continue home med - ellipta (6) Hyponatremia Current Visit: No Status: Resolved Assessment & Plan: - Mild Na+ 136 Code(s): E87.1 - HYPO-OSMOLALITY AND HYPONATREMIA (7) Hypocalcemia Current Visit: Yes Status: Acute Assessment & Plan: - Corrected Ca+ 8.0 - Tums 750 BID added - F/U OP with PCP Code(s): E83.51 - HYPOCALCEMIA (8) Constipation Current Visit: Yes Status: Acute Assessment & Plan: - Stool softener added - + BM 07/18/23 Code(s): K59.00 - CONSTIPATION, UNSPECIFIED - Discharge Discharge Date: 07/18/23 Disposition: Home, Self-Care Condition: Stable Prescriptions: New Phenazopyridine HCl 200 mg [Pyridium 200 mg] 100 mg PO TID 2 Days #6 tablet Calcium Carbonate 750 mg [Tums EX 750 MG] 750 mg PO BID 30 Days #60 tablet Continue Fluticasone/Vilanterol [Breo Ellipta 100-25 Mcg Inhalr] 1 each IH UD Amlodipine Besylate 5 mg [Norvasc 5 mg] 5 mg PO QHS Lisinopril 5 mg [Zestril 5 MG] 5 mg PO DAILY Ibandronate Sodium [Boniva] 150 mg PO UD Discontinued Ciprofloxacin [Cipro 500 MG] 500 mg PO UD Instructions: Urinary Tract Infection, Adult (DC) Additional Instructions: *Wipe from front to back, stay hydrated, use barrier cream. Follow up with: ELIZABETH BELLO MD [Primary Care Provider] - 07/25/23 10:30 am (at [facility]) Forms: Discharge Instructions
[2023-07-18] MEDS ORDERED: Tums EX 750 MG PO SCH (10:00)
[2023-07-18] MEDS: Zestril 5 MG PO SCH (10:03)
[2023-07-18] MEDS: PYRIDIUM 200 MG PO SCH (10:03)
[2023-07-18] MEDS: HEPARIN 5000 UNITS/0.5 ML (HIGH RISK MED) SQ SCH (10:04)
[2023-07-18] MEDS: TYLENOL 325 MG PO PRN (10:04)
[2023-07-18 11:29] VITALS: BP 119/55; PULSE 73; TEMP 97.8; O2SAT 90
[2023-08-11] MEDS ORDERED: IBANDRONATE SODIUM 150 MG PO SCH (06:00)
== END 2023-07-18 13:20 | disposition home or self-care (01) ==
LOC: ED 18:17 → MED SURG 22:42
PROVIDERS: ADMIT Internal Medicine; ATTEND Internal Medicine
DX: N39.0 Urinary tract infection, site not specified (principal); R10.2 Pelvic and perineal pain; I10 Essential (primary) hypertension; D72.829 Elevated white blood cell count, unspecified; J44.9 Chronic obstructive pulmonary disease, unspecified; E87.1 Hypo-osmolality and hyponatremia; E83.51 Hypocalcemia; K59.00 Constipation, unspecified; Z79.899 Other long term (current) drug therapy; Z20.828 Contact with and (suspected) exposure to other viral communicable diseases
CPT/HCPCS: 36000; 36415; 74176; 80048; 80053; 81001; 83605; 85025; 87077; 87086; 87186; 94640; 94760; 96365; 96374; 96375; 96376; 99285; Q3014; G0378; J0696; J1170; J1644; J1885; J2060; J2405; J3010; A9270-GY

== ENCOUNTER 2023-08-07 11:59 | Emergency (ER) | payer MEDICARE ==
[2023-08-07 12:27] VITALS: TEMP 98.4
[2023-08-07] MEDS ORDERED: Sodium Chloride 0.9% 1000 ML 1,000 ML IV STA (12:39)
[2023-08-07] MEDS ORDERED: TYLENOL 325 MG PO ONE (12:39)
[2023-08-07] MEDS ORDERED: Zofran 4 MG/2 ML VIAL IV ONE (12:39)
[2023-08-07 13:01] LABS: Absolute Neutrophil Ct (ANC) 5.44 x10^3/uL (1.4-6.9); BASOPHIL % 0.8 % (0.0-0.4); Basophil (Absolute #) 0.06 x10^3/uL (0-0.4); Eosinophil (Absolute #) 0 x10^3/uL (0-0.5); Hematocrit 46.6 % (35-47); Hemoglobin 15.1 g/dL (12.0-16.0); IMMATURE GRAN # 0.01 x10^3u/L (0.00-0.03); IMMATURE GRAN % 0.1 % (0.00-0.4); Lymphocyte (Absolute #) 1.07 x10^3/uL (1.0-4.6); Mean Cell Volume 94.1 fL (78-100); Mean Corpuscular Hemoglobin 30.5 pg (26-32); Mean Corpuscular Hgb Concent. 32.4 g/dL (32-36); Mean Platelet Volume 10.5 fL (7.5-11.0); Monocyte (Absolute #) 1.08 x10^3/uL (0.0-1.3); Monocytes % 14.1 % (0.0-12.0); Platelet Count 269 x10^3/uL (150-450); Red Blood Count 4.95 x10^6/uL (4.1-5.4); Red Cell Distribution Width 13.3 % (11.5-14.0); White Blood Count 7.7 x10^3/uL (4.0-10.5)
[2023-08-07 13:07] LABS: Appearance Turbid (Clear); Bilirubin Negative (Negative); Blood Negative (Negative); Epithelial Cells Rare /HPF (None Seen); Glucose, Urine Negative (Negative); Hyaline Casts NONE SEEN /LPF (0-2); Ketones Trace (Negative); Leukocyte Esterase Negative (Negative); Nitrite Negative (Negative); Protein,Urine Dip 30 (Negative); Specific Gravity 1.015 (1.005-1.030); WBC 0-2 /HPF (0-5)
[2023-08-07 13:08] LABS: ADD URINE CULTURE? YES (NO); Bacteria Few /HPF (None Seen); RBC 0-2 /HPF (0-5)
[2023-08-07 13:18] LABS: ALBUMIN 4.2 g/dL (3.5-5.0); ANION GAP 12.1 MEQ/L (5-15); BILIRUBIN,TOTAL 0.6 mg/dL (0.2-1.3); Calcium 8.8 mg/dL (8.4-10.2); Creatinine 1 0.73 mg/dL (0.52-1.04); EST GLOMERULAR FILTRATION RATE 84.1 ML/MIN; Potassium 4.4 mmol/L (3.5-5.1); Total Protein 7.2 g/dL (6.3-8.2)
[2023-08-07] MEDS ORDERED: Zofran 4 MG/2 ML VIAL ONE (13:19)
[2023-08-07] MEDS ORDERED: TYLENOL 325 MG ONE (13:20)
[2023-08-07] MEDS ORDERED: Sodium Chloride 0.9% 1000 ML 1,000 ML ONE (13:20)
[2023-08-07 13:37] LABS: INFLUENZA A NEGATIVE (NEGATIVE); INFLUENZA B NEGATIVE (NEGATIVE); RESPIRATORY SYNCTIAL VIRUS NEGATIVE (NEGATIVE)
[2023-08-07 13:41] LABS: SARS-CoV-2 Xpert Express POSITIVE (NEGATIVE)
--- NOTE | 2023-08-07 13:53 | ERPHSYRPT ---
- History of Present Illness Time Seen by Provider: 08/07/23 12:13 Historian: patient Exam Limitations: no limitations Patient Subjective Stated Complaint: pt here for vomiting for 24 hours with headache. Triage Nursing Assessment: pt arrived per wc, alert,moaing out, able to undress, resp easy, skin w/d/p. no edema noted, abd soft, Physician History: 77 years old female with a history of hypertension presented in the ER with chief complaint of vomiting since last night. Patient reports feeling of generalized malaise, body aches, mild headache with no fever or chills but weakness all over with associated nausea started yesterday evening followed by multiple episodes of nonprojectile, nonbilious vomiting without hematemesis. Denies any abdominal pain. Denies any cough congestion or difficulty breathing. Denies any chest pain or palpitations. Denies any known sick contact. Reports no diarrhea but is unable to hold much down, feels dehydrated. Allergies/Adverse Reactions: moxifloxacin HCl [From Avelox] Allergy (Severe, Verified 08/07/23 12:13) Hives oseltamivir [From Tamiflu] Allergy (Severe, Verified 08/07/23 12:13) Swelling of Face Sulfa (Sulfonamide Antibiotics) Allergy (Mild, Verified 08/07/23 12:13) Hives codeine Allergy (Verified 08/07/23 12:13) Hives Penicillins Allergy (Verified 08/07/23 12:13) Hives Home Medications: Fluticasone/Vilanterol [Breo Ellipta 100-25 Mcg Inhalr] 1 each IH UD 11/16/16 [History] Amlodipine Besylate 5 mg [Norvasc 5 mg] 5 mg PO QHS 07/22/22 [History] Ibandronate Sodium [Boniva] 150 mg PO UD 07/22/22 [History] Lisinopril 5 mg [Zestril 5 MG] 5 mg PO DAILY 07/22/22 [History] Tolterodine Tartrate [Detrol LA] 4 mg PO DAILY 08/07/23 [History] Hx Tetanus, Diphtheria Vaccination/Date Given: No Hx Influenza Vaccination/Date Given: Yes Hx Pneumococcal Vaccination/Date Given: Yes Immunizations Up to Date: Yes Travel Risk - International Travel Have you traveled outside of the country in past 3 weeks: No - Coronavirus Screening Are you exhibiting any of the following symptoms?: Yes Symptoms: Vomiting/Diarrhea Close contact with a COVID-19 positive Pt in past 14-21 Days: No - Vaccine Status Have you recieved a Covid-19 vaccination: Yes Equity Director: Moderna - Vaccination Dates Date of 2cond Vaccination (if applicable): 2020 - Review of Systems Constitutional: Fatigue, Weakness Eyes: No Symptoms Ears, Nose, & Throat: No Symptoms Respiratory: No Symptoms Cardiac: No Symptoms Abdominal/Gastrointestinal: Nausea, Vomiting Genitourinary Symptoms: No Symptoms Musculoskeletal: Myalgias Neurological: Headache Psychological: No Symptoms Endocrine: No Symptoms Hematologic/Lymphatic: No Symptoms Immunological/Allergic: No Symptoms - Past Medical History Pertinent Past Medical History: Yes Neurological History: No Pertinent History ENT History: No Pertinent History Cardiac History: Hypertension Respiratory History: COPD Endocrine Medical History: No Pertinent History Musculoskeletal History: No Pertinent History GI Medical History: No Pertinent History History: No Pertinent History Psycho-Social History: No Pertinent History Female Reproductive Disorders: No Pertinent History - Past Surgical History Past Surgical History: Yes Neuro Surgical History: No Pertinent History Cardiac: No Pertinent History Respiratory: No Pertinent History Gastrointestinal: No Pertinent History Genitourinary: No Pertinent History Musculoskeletal: Other Female Surgical History: Hysterectomy Other Surgical History: knee scope - Social History Smoking Status: Former smoker How long have you smoked: 46 Exposure to second hand smoke: No Drug Use: none Patient Lives Alone: Yes Significant Family History: no pertinent family hx - Nursing Vital Signs Nursing Vital Signs: Initial Vital Signs Temperature 98.4 F 08/07/23 12:25 Pulse Rate 83 08/07/23 12:25 Respiratory Rate 18 08/07/23 12:25 Blood Pressure 117/63 08/07/23 12:25 O2 Sat by Pulse Oximetry 95 08/07/23 12:25 Pain Scale Pain Intensity 5 - Physical Exam General Appearance: no apparent distress, alert Eye Exam: PERRL/EOMI Ears, Nose, Throat Exam: normal ENT inspection Neck Exam: normal inspection, non-tender, supple, full range of motion Respiratory Exam: normal breath sounds, lungs clear Cardiovascular Exam: regular rate/rhythm, normal heart sounds Gastrointestinal/Abdomen Exam: soft, normal bowel sounds, No tenderness, No distention, No guarding Extremity Exam: normal inspection, normal range of motion Neurologic Exam: alert, oriented x 3, cooperative, 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, normal mood/affect, nml cerebellar function, sensation nml, No motor deficits Skin Exam: normal color SpO2 Interpretation: normal SpO2: 95 O2 Delivery: Room Air Ordered Tests: Active Orders 24 hr Category Date Time Status IV Insertion STAT Care 08/07/23 12:39 Active ABDOMEN AND PELVIS W/0 CONTRAS [CT] Stat Exams 08/07/23 13:05 Completed CBC W DIFF Stat Lab 08/07/23 12:55 Completed CMP Stat Lab 08/07/23 12:55 Completed CULTURE,URINE Stat Lab 08/07/23 12:42 Received LIPASE Stat Lab 08/07/23 12:55 Completed UA W/RFX UR CULTURE Stat Lab 08/07/23 12:42 Completed Medication Summary Discontinued Medications Generic Name Dose Route Start Last Admin Trade Name Freq PRN Reason Stop Dose Admin Acetaminophen 975 mg 08/07/23 12:39 08/07/23 13:24 Acetaminophen 325 Mg Tablet PO 08/07/23 12:40 975 mg STAT ONE Administration Acetaminophen Confirm 08/07/23 13:20 Acetaminophen 325 Mg Tablet Administered 08/07/23 13:21 Dose 975 mg .ROUTE .STK-MED ONE Sodium Chloride 1,000 mls @ 999 mls/hr 08/07/23 12:39 08/07/23 14:35 Sodium Chloride 0.9% 1000 Ml IV 08/07/23 13:39 Infused .Q1H1M STA Infusion Sodium Chloride Confirm 08/07/23 13:20 Sodium Chloride 0.9% 1000 Ml Administered 08/07/23 13:21 Dose 1,000 mls @ ud .ROUTE .STK-MED ONE Ondansetron HCl 4 mg 08/07/23 12:39 08/07/23 13:24 Ondansetron Hcl 4 Mg/2 Ml Vial IV 08/07/23 12:40 4 mg STAT ONE Administration Ondansetron HCl Confirm 08/07/23 13:19 Ondansetron Hcl 4 Mg/2 Ml Vial Administered 08/07/23 13:20 Dose 4 mg .ROUTE .STK-MED ONE Lab/Rad Data: Laboratory Result Diagrams 08/07/23 12:55 08/07/23 12:55 Laboratory Results 08/07/23 08/07/23 08/07/23 Range/Units 12:55 12:55 12:55 WBC 7.7 (4.0-10.5) x10^3/uL RBC 4.95 (4.1-5.4) x10^6/uL Hgb 15.1 (12.0-16.0) g/dL Hct 46.6 (35-47) % MCV 94.1 (78-100) fL MCH 30.5 (26-32) pg MCHC 32.4 (32-36) g/dL RDW 13.3 (11.5-14.0) % Plt Count 269 (150-450) x10^3/uL MPV 10.5 (7.5-11.0) fL Gran % 71.0 H (36.0-66.0) % Immature Gran % (Auto) 0.1 (0.00-0.4) % Nucleat RBC Rel Count 0.0 (0.00-0.1) % Eos # (Auto) 0 (0-0.5) x10^3/uL Immature Gran # (Auto) 0.01 (0.00-0.03) x10^3u/L Absolute Lymphs (auto) 1.07 (1.0-4.6) x10^3/uL Absolute Monos (auto) 1.08 (0.0-1.3) x10^3/uL Absolute Nucleated RBC 0.00 (0.00-0.01) x10^3u/L Lymphocytes % 14.0 L (24.0-44.0) % Monocytes % 14.1 H (0.0-12.0) % Eosinophils % 0.0 (0.00-5.0) % Basophils % 0.8 (0.0-0.4) % Absolute Granulocytes 5.44 (1.4-6.9) x10^3/uL Basophils # 0.06 (0-0.4) x10^3/uL Sodium 130 L (137-145) mmol/L Potassium 4.4 (3.5-5.1) mmol/L Chloride 99 (98-107) mmol/L Carbon Dioxide 24 (22-30) mmol/L Anion Gap 12.1 (5-15) MEQ/L BUN 13 (7-17) mg/dL Creatinine 0.73 (0.52-1.04) mg/dL Estimated GFR 84.1 ML/MIN Glucose 108 H (74-106) mg/dL Calcium 8.8 (8.4-10.2) mg/dL Total Bilirubin 0.60 (0.2-1.3) mg/dL AST 26 (14-36) U/L ALT 15 (0-35) U/L Alkaline Phosphatase 49 (38-126) U/L Serum Total Protein 7.2 (6.3-8.2) g/dL Albumin 4.2 (3.5-5.0) g/dL Lipase 109 (23-300) U/L Urine Color (Yellow) Urine Appearance (Clear) Urine pH (4.6-8.0) Ur Specific Pender (1.005-1.030) Urine Protein (Negative) Urine Glucose (UA) (Negative) mg/dL Urine Ketones (Negative) Urine Blood (Negative) Urine Nitrite (Negative) Urine Bilirubin (Negative) Urine Urobilinogen (0.2) mg/dL Ur Leukocyte Esterase (Negative) U Hyaline Cast (Auto) (0-2) /LPF Urine Microscopic RBC (0-5) /HPF Urine Microscopic WBC (0-5) /HPF Ur Epithelial Cells (None Seen) /HPF Urine Bacteria (None Seen) /HPF Urine Culture Reflexed (NO) Influenza Type A Ag NEGATIVE (NEGATIVE) Influenza Type B Ag NEGATIVE (NEGATIVE) RSV (PCR) NEGATIVE (NEGATIVE) SARS-CoV-2 (PCR) POSITIVE A (NEGATIVE) 08/07/23 Range/Units 12:42 WBC (4.0-10.5) x10^3/uL RBC (4.1-5.4) x10^6/uL Hgb (12.0-16.0) g/dL Hct (35-47) % MCV (78-100) fL MCH (26-32) pg MCHC (32-36) g/dL RDW (11.5-14.0) % Plt Count (150-450) x10^3/uL MPV (7.5-11.0) fL Gran % (36.0-66.0) % Immature Gran % (Auto) (0.00-0.4) % Nucleat RBC Rel Count (0.00-0.1) % Eos # (Auto) (0-0.5) x10^3/uL Immature Gran # (Auto) (0.00-0.03) x10^3u/L Absolute Lymphs (auto) (1.0-4.6) x10^3/uL Absolute Monos (auto) (0.0-1.3) x10^3/uL Absolute Nucleated RBC (0.00-0.01) x10^3u/L Lymphocytes % (24.0-44.0) % Monocytes % (0.0-12.0) % Eosinophils % (0.00-5.0) % Basophils % (0.0-0.4) % Absolute Granulocytes (1.4-6.9) x10^3/uL Basophils # (0-0.4) x10^3/uL Sodium (137-145) mmol/L Potassium (3.5-5.1) mmol/L Chloride (98-107) mmol/L Carbon Dioxide (22-30) mmol/L Anion Gap (5-15) MEQ/L BUN (7-17) mg/dL Creatinine (0.52-1.04) mg/dL Estimated GFR ML/MIN Glucose (74-106) mg/dL Calcium (8.4-10.2) mg/dL Total Bilirubin (0.2-1.3) mg/dL AST (14-36) U/L ALT (0-35) U/L Alkaline Phosphatase (38-126) U/L Serum Total Protein (6.3-8.2) g/dL Albumin (3.5-5.0) g/dL Lipase (23-300) U/L Urine Color Yellow (Yellow) Urine Appearance Turbid A (Clear) Urine pH 8.0 (4.6-8.0) Ur Specific Pender 1.015 (1.005-1.030) Urine Protein 30 (Negative) Urine Glucose (UA) Negative (Negative) mg/dL Urine Ketones Trace A (Negative) Urine Blood Negative (Negative) Urine Nitrite Negative (Negative) Urine Bilirubin Negative (Negative) Urine Urobilinogen 1.0 A (0.2) mg/dL Ur Leukocyte Esterase Negative (Negative) U Hyaline Cast (Auto) NONE SEEN (0-2) /LPF Urine Microscopic RBC 0-2 (0-5) /HPF Urine Microscopic WBC 0-2 (0-5) /HPF Ur Epithelial Cells Rare (None Seen) /HPF Urine Bacteria Few A (None Seen) /HPF Urine Culture Reflexed YES (NO) Influenza Type A Ag (NEGATIVE) Influenza Type B Ag (NEGATIVE) RSV (PCR) (NEGATIVE) SARS-CoV-2 (PCR) (NEGATIVE) - Progress Progress: improved, re-examined Progress Note: 08/07/23 15:28 77 years old is evaluated in the ER for flulike symptoms since yesterday with associated multiple episodes of nonprojectile, nonbilious vomiting without hematemesis. She was mildly tachycardic, given fluid bolus along with Zofran. On reevaluation she is feeling much improved. She was having mild chills and given Tylenol for that. Workup showed normal white count, mildly low sodium of 130 but otherwise unremarkable chemistries. No UTI. Has positive COVID-19. CT abdomen pelvis negative for any acute abdominal pelvic findings. Patient blood pressure is 95/53 on reevaluation, recommended observation admission but patient does not want to stay in the hospital at all. Patient/son state that her blood pressure usually stays low and it is not uncommon to have been 90s which is around her baseline. She has not been eating drinking well for the last couple of days and has been continuing to take her routine antihypertensive. I have advised to hold off on your blood pressure medication if it is less than 120 systolic until tomorrow and then revisit it. Recommended outpatient follow-up, keeping a log of blood pressure to see if needs adjustment in dose of medications. Patient has no difficulty breathing, room air oxygen saturation around 94%. Not in any distress at all. Discussed signs symptoms of worsening needing return to ER which she seems understanding. Stable for discharge. Counseled pt/family regarding: lab results, diagnosis, need for follow-up, rad results Medical Desision Making - Independent Historian Additional History obtained from: Child - Diagnostic Testing Diagnostic test were ordered, analyzed, and reviewed by me: Yes Radiological Interpretation: Reviewed by me, Teleradiologist Report - Risk of complications The pt has a mod risk of morbidity or mortality based on: Need for prescription drug management - Departure Departure Disposition: Home Clinical Impression: COVID-19 virus detected, Nausea & vomiting, Viral syndrome Condition: Stable Critical Care Time: No Referrals: ELIZABETH BELLO MD [Primary Care Provider] - Follow up with PCP 2 days Instructions: COVID-19 (DC), Nausea and Vomiting, Adult (DC) Additional Instructions: Drink plenty of fluids. Take Tylenol as needed. Take Zofran as needed for nausea and vomiting. Return to ER for intractable vomiting or if having abdominal pain, difficulty breathing, persistent high-grade fever chills etc. Monitor your blood pressure regularly, keep a log and follow-up with primary care. If your blood pressure is below 120 systolic then do not take your medication tonight. Prescriptions: Ondansetron ODT 4 MG [Zofran Odt 4 mg] 1 ea PO QIDPRN PRN #7 tablet PRN Reason: n/v
--- NOTE | 2023-08-07 14:52 | XRAY ---
CLINICAL HISTORY:vomiting COMPARISON:07/15/2023. TECHNIQUE:CT scan of the abdomen and pelvis without intravenous contrast administration was obtained for interpretation. FINDINGS: The liver is of average size, regular contour and homogeneous texture with no focal lesion that could be detected on a non-contrast basis. No intra hepatic biliary radical dilatation. The spleen is of average size and shape with homogeneous parenchyma and no focal lesion could be noted on a non-contrast basis. Both kidneys are of normal size, shape, and parenchymal thickness. Stable small left renal non-obstructing stone and left renal cortical cyst. The pancreas and adrenal glands are grossly within normal limits. Atheromatous calcifications of the aorta and its main branches. No significant lymph rene enlargement or ascetic fluid collection. Hysterectomy. Multiple sigmoid colon diverticulosis is most pronounced at the descending and rectosigmoid colons with no evidence of acute diverticulitis. Normal filling of the urinary bladder with no stones, masses, or diverticula. No evidence of free intraperitoneal air. A small hiatus hernia is again noted. Tiny fat-containing umbilical hernia. The rest of the bowel loops and appendix appear unremarkable. Bone window settings showed no evidence of fractures or destructive lesions. Lumbar spondylotic changes and scoliosis is again noted. Lung window settings showed bilateral basal interstitial pulmonary changes again noted. IMPRESSION: Multiple sigmoid colon diverticuloiss with no evidence of acute diverticulitis. Stable small left renal cortical cyst and small non-obstructing stone. Stationary rest of the study with no acute abdominal or pelvic abnormalities. Electronically Signed by: Joe Sibley MD. (08/07/2023 14:48:30 EST)
[2023-08-07 16:04] VITALS: BP 83/50; PULSE 77; RESP 18; O2SAT 91
== END 2023-08-07 16:10 | disposition home or self-care (01) ==
LOC: ED 11:59
DX: U07.1 COVID-19 (principal); R11.2 Nausea with vomiting, unspecified; R53.83 Other fatigue; M79.10 Myalgia, unspecified site; R51.9 Headache, unspecified; R53.1 Weakness; I10 Essential (primary) hypertension; Z79.899 Other long term (current) drug therapy
CPT/HCPCS: 0241U; 36000; 36415; 74176; 80053; 81001; 83690; 85025; 87086; 96374; 99284; J2405; A9270-GY

== ENCOUNTER 2023-08-11 15:08 | Emergency (ER) | payer MEDICARE ==
[2023-08-11 15:20] VITALS: BP 129/103; PULSE 85; RESP 20; TEMP 97.5; O2SAT 92
--- NOTE | 2023-08-11 15:26 | ERPHSYRPT ---
- History of Present Illness Time Seen by Provider: 08/11/23 15:26 Source: patient Exam Limitations: no limitations Patient Subjective Stated Complaint: uti symptoms Triage Nursing Assessment: patient reports troubling urinating, burning, and pressure Physician History: This is an overweight 77-year-old white female patient of Dr. Bello and returns to the emergency department for her third visit in 27 days for the same issue which is vaginal pain described as sharp and burning especially with urination. She has had the symptoms for 2 to 3 months per her report. She was last seen in our emergency department on 08/07/2023 and underwent a significant workup which showed negative urinary tract infection but positive COVID-[address] scan of the abdomen and pelvis on that date was reviewed by me as was the inpatient record from 07/15/2023. The CT scan of the abdomen pelvis without contrast on 08/07/2023 showed sigmoid colon diverticulosis without acute diverticulitis. There was no acute intra-abdominal or intrapelvic process. Patient has a history of COPD and hypertension. She is scheduled to see a urologist in [facility] the end of August 2023. Activites at Onset: none Quality: burning, sharpness Onset Location: vaginal Pain Radiation: none Severity of Pain-Max: moderate Severity of Pain-Current: moderate Sexual intercourse history: non-contributory Modifying Factors: Improves With: nothing Associated Symptoms: dysuria Allergies/Adverse Reactions: moxifloxacin HCl [From Avelox] Allergy (Severe, Verified 08/11/23 15:21) Hives oseltamivir [From Tamiflu] Allergy (Severe, Verified 08/11/23 15:21) Swelling of Face Sulfa (Sulfonamide Antibiotics) Allergy (Mild, Verified 08/11/23 15:21) Hives codeine Allergy (Verified 08/11/23 15:21) Hives Penicillins Allergy (Verified 08/11/23 15:21) Hives Home Medications: Fluticasone/Vilanterol [Breo Ellipta 100-25 Mcg Inhalr] 1 each IH UD 11/16/16 [History] Amlodipine Besylate 5 mg [Norvasc 5 mg] 5 mg PO QHS 07/22/22 [History] Ibandronate Sodium [Boniva] 150 mg PO UD 07/22/22 [History] Lisinopril 5 mg [Zestril 5 MG] 5 mg PO DAILY 07/22/22 [History] Tolterodine Tartrate [Detrol LA] 4 mg PO DAILY 08/07/23 [History] Hx Tetanus, Diphtheria Vaccination/Date Given: No Hx Influenza Vaccination/Date Given: Yes Hx Pneumococcal Vaccination/Date Given: Yes Travel Risk - International Travel Have you traveled outside of the country in past 3 weeks: No - Coronavirus Screening Are you exhibiting any of the following symptoms?: No Close contact with a COVID-19 positive Pt in past 14-21 Days: Yes - Vaccine Status Have you recieved a Covid-19 vaccination: Yes Dependency Counselor: Unknown - Vaccination Dates Dates if Unknown: unknown - Review of Systems Constitutional: No Symptoms Eyes: No Symptoms Ears, Nose, & Throat: No Symptoms Respiratory: No Symptoms Cardiac: No Symptoms Abdominal/Gastrointestinal: No Symptoms Genitourinary Symptoms: Dysuria, Other (Vaginal burning) Musculoskeletal: No Symptoms Skin: No Symptoms Neurological: No Symptoms Psychological: No Symptoms Endocrine: No Symptoms Hematologic/Lymphatic: No Symptoms Immunological/Allergic: No Symptoms All Other Systems: Reviewed and Negative - Past Medical History Pertinent Past Medical History: Yes Neurological History: No Pertinent History ENT History: No Pertinent History Cardiac History: Hypertension Respiratory History: COPD Endocrine Medical History: No Pertinent History Musculoskeletal History: No Pertinent History GI Medical History: No Pertinent History History: No Pertinent History Psycho-Social History: No Pertinent History Female Reproductive Disorders: No Pertinent History - Past Surgical History Past Surgical History: Yes Neuro Surgical History: No Pertinent History Cardiac: No Pertinent History Respiratory: No Pertinent History Gastrointestinal: No Pertinent History Genitourinary: No Pertinent History Musculoskeletal: Other Female Surgical History: Hysterectomy Other Surgical History: knee scope - Social History Smoking Status: Former smoker How long have you smoked: 46 Exposure to second hand smoke: No Drug Use: none Patient Lives Alone: Yes Significant Family History: no pertinent family hx - Nursing Vital Signs Nursing Vital Signs: Initial Vital Signs Temperature 97.5 F 08/11/23 15:13 Pulse Rate 85 08/11/23 15:13 Respiratory Rate 20 08/11/23 15:13 Blood Pressure 129/103 08/11/23 15:13 O2 Sat by Pulse Oximetry 92 L 08/11/23 15:13 Pain Scale Pain Intensity 9 - Physical Exam General Appearance: mild distress, alert, anxiety, obese Eye Exam: PERRL/EOMI, eyes nml inspection Ears, Nose, Throat Exam: normal ENT inspection, moist mucous membranes Neck Exam: normal inspection, non-tender, supple, full range of motion Respiratory Exam: airway intact, No chest tenderness, No respiratory distress Gastrointestinal/Abdomen Exam: soft, normal bowel sounds, No tenderness, No guarding Pelvic Exam: not done, other (Vaginal burning and sharp pain with urination) Rectal Exam: deferred Back Exam: normal inspection, normal range of motion, No CVA tenderness, No vertebral tenderness Extremity Exam: normal inspection, normal range of motion, pelvis stable Neurologic Exam: alert, oriented x 3, cooperative, public services assistant II-XII nml as tested, normal mood/affect, nml cerebellar function, nml station & gait, sensation nml Skin Exam: normal color, warm, dry Lymphatic Exam: No adenopathy SpO2 Interpretation: borderline oxygenation SpO2: 92 O2 Delivery: Room Air - Course Nursing assessment & vital signs reviewed: Yes Ordered Tests: Active Orders 24 hr Category Date Time Status CULTURE,URINE Stat Lab 08/11/23 15:31 Received UA W/RFX UR CULTURE Stat Lab 08/11/23 15:31 Completed Medication Summary Discontinued Medications Generic Name Dose Route Start Last Admin Trade Name Daniq PRN Reason Stop Dose Admin Morphine Sulfate 2 mg 08/11/23 15:57 08/11/23 16:04 Morphine Sulfate 2 Mg/Ml Inj IM 08/11/23 15:58 1 mg STAT ONE Administration Morphine Sulfate Confirm 08/11/23 16:00 Morphine Sulfate 2 Mg/Ml Inj Administered 08/11/23 16:01 Dose 2 mg .ROUTE .STK-MED ONE Ondansetron HCl 4 mg 08/11/23 15:57 08/11/23 16:05 Zofran 4 Mg/Udtablet Orally Disintegrating PO 08/11/23 15:58 4 mg STAT ONE Administration Ondansetron HCl Confirm 08/11/23 16:00 Zofran 4 Mg/Udtablet Orally Disintegrating Administered 08/11/23 16:01 Dose 4 mg .ROUTE .STK-MED ONE Phenazopyridine HCl 200 mg 08/11/23 16:08 Phenazopyridine Hcl 200 Mg Tablet PO 08/11/23 16:09 STAT ONE Lab/Rad Data: Laboratory Results 08/11/23 Range/Units 15:31 Urine Color Dark Yellow A (Yellow) Urine Appearance Turbid A (Clear) Urine pH 5.5 (4.6-8.0) Ur Specific [place] 1.025 (1.005-1.030) Urine Protein 300 A (Negative) Urine Glucose (UA) Negative (Negative) mg/dL Urine Ketones Trace A (Negative) Urine Blood Large A (Negative) Urine Nitrite Positive A (Negative) Urine Bilirubin Small A (Negative) Urine Urobilinogen 1.0 A (0.2) mg/dL Ur Leukocyte Esterase Large A (Negative) U Hyaline Cast (Auto) 6-10 A (0-2) /LPF Urine Microscopic RBC 21-50 A (0-5) /HPF Urine Microscopic WBC >100 A (0-5) /HPF Ur Epithelial Cells Few (None Seen) /HPF Urine Bacteria Many A (None Seen) /HPF Urine Culture Reflexed YES (NO) - Progress Progress: improved, re-examined Air Movement: good Progress Note: 08/11/23 16:18 This patient's medical issue is 1 of low complexity. Level complex in the workup performed is based on review of the patient's past medical history, review of the patient's medication list, review of the patient's drug allergy list, history present illness and physical findings on examination. The workup in this patient includes urinalysis and pain control with Pyridium, intramuscular 2 mg of morphine and Zofran ODT. Patient has significant dysuria. However she is only been using plain Tylenol for pain control which is not helping. Patient will receive definitive care from urology. Today's management will be to determine if the patient has urinary tract infection and treat that as well as provide outpatient pain management. 08/11/23 16:22 I interpreted the patient's laboratory studies. Patient has a significant urinary tract infection. Patient has had Rocephin intramuscularly in the past without any side effects. We will provide the patient with Rocephin injection intramuscularly and then remotely send a prescription of cefdinir to her pharmacy as well as Pyridium. Blood Culture(s) Obtained: No Antibiotics given: Yes Counseled pt/family regarding: lab results, diagnosis, need for follow-up Medical Desision Making - Independent Historian Additional History obtained from: Family - Diagnostic Testing Diagnostic test were ordered, analyzed, and reviewed by me: Yes - Risk of complications The pt has a mod risk of morbidity or mortality based on: Need for prescription drug management - Departure Departure Disposition: Home Clinical Impression: UTI (urinary tract infection), Dysuria Condition: Stable Critical Care Time: No Referrals: ELIZABETH BELLO MD [Primary Care Provider] - Follow up/PCP as directed Additional Instructions: Drink plenty of fluids May add ibuprofen 600 mg orally with food every 8-12 hours for pain control if there are no contraindications. Take your antibiotics and other medication as prescribed. May follow-up with our emergency department or an emergency department that has urology on staff for further evaluation and management Prescriptions: Cefdinir 300 mg PO BID #14 cap Phenazopyridine HCl 200 mg [Pyridium 200 mg] 200 mg PO TID #6 tablet Tramadol HCl 50 mg [Ultram 50 mg] 50 mg PO BID #10 tablet
[2023-08-11] MEDS ORDERED: MORPHINE SULFATE 2 MG INJ IM ONE (15:57)
[2023-08-11] MEDS ORDERED: ZOFRAN ODT 4 MG PO ONE (15:57)
[2023-08-11] MEDS ORDERED: MORPHINE SULFATE 2 MG INJ ONE (16:00)
[2023-08-11] MEDS ORDERED: ZOFRAN ODT 4 MG ONE (16:00)
[2023-08-11 16:07] LABS: Appearance Turbid (Clear); Bacteria Many /HPF (None Seen); Bilirubin Small (Negative); Blood Large (Negative); Epithelial Cells Few /HPF (None Seen); Glucose, Urine Negative (Negative); Ketones Trace (Negative); Leukocyte Esterase Large (Negative); Nitrite Positive (Negative); Ph 5.5 (4.6-8.0); Protein,Urine Dip 300 (Negative); RBC 21-50 /HPF (0-5); Specific Gravity 1.025 (1.005-1.030); WBC >100 /HPF (0-5)
[2023-08-11] MEDS ORDERED: PYRIDIUM 200 MG PO ONE (16:08)
[2023-08-11 16:09] LABS: ADD URINE CULTURE? YES (NO)
[2023-08-11] MEDS ORDERED: Rocephin 1000 MG INJ IM ONE (16:20)
[2023-08-11] MEDS ORDERED: PYRIDIUM 200 MG ONE (16:42)
[2023-08-11] MEDS ORDERED: Rocephin 1000 MG INJ ONE (16:46)
== END 2023-08-11 17:06 | disposition home or self-care (01) ==
LOC: ED 15:08
DX: N39.0 Urinary tract infection, site not specified (principal); R30.0 Dysuria; R10.2 Pelvic and perineal pain; I10 Essential (primary) hypertension; Z79.891 Long term (current) use of opiate analgesic; Z79.899 Other long term (current) drug therapy
CPT/HCPCS: 81001; 87077; 87086; 87186; 96372; 99283; J0696; J2270; Q0162; A9270-GY